=== PATIENT | female | born 1975 | race Caucasian/White ===

== ENCOUNTER 2016-07-14 11:40 | Emergency (ER) | payer MEDICARE, OTHER ==
--- NOTE | 2016-07-14 12:57 | ED ---
General Adult HPI - General Chief complaint: ENT Stated complaint: Left Ear Pain Time Seen by Provider: 07/14/16 12:51 Source: patient, RN notes reviewed Mode of arrival: ambulatory Limitations: no limitations - History of Present Illness Initial comments: Patient is a pleasant 40-year-old female presenting to the emergency department complaining of sinus congestion and left ear pain. Symptoms have been present for a few days. No trauma. Patient does get frequent ear infections. No sore throat. Mild cough. Patient does have some nasal drainage as well. No fever. No hearing loss. - Related Data Home Medications Medication Instructions Recorded Confirmed Citalopram Hydrobromide [CeleXA] 20 mg PO QAM 06/20/15 05/16/16 Albuterol Inhaler [Ventolin Hfa 2 puff INHALATION RT-Q4H 08/28/15 05/16/16 Inhaler] Cyclobenzaprine [Flexeril] 10 mg PO TID 02/20/16 05/16/16 rOPINIRole HCL [Requip] 1 mg PO HS 02/20/16 05/16/16 Celecoxib [CeleBREX] 200 mg PO DAILY 03/08/16 05/16/16 Divalproex ER [Depakote ER] 1,000 mg PO DAILY 03/08/16 05/16/16 Docusate [Colace] 100 mg PO DAILY 03/08/16 05/16/16 Loratadine [Loratadine] 10 mg PO DAILY 03/08/16 05/16/16 QUEtiapine [SEROquel] 200 mg PO DAILY 03/08/16 05/16/16 Topiramate [Topamax] 100 mg PO DAILY 03/08/16 05/16/16 traZODone HCL [Desyrel] 50 mg PO HS 03/08/16 05/16/16 Gabapentin 800 mg PO TID 05/16/16 05/16/16 Previous Rx's Medication Instructions Recorded guaiFENesin [Mucinex] 600 mg PO Q12HR #10 tablet.er 04/08/16 Ciprofloxacin HCl [Cipro] 500 mg PO Q12HR #14 tablet 05/16/16 Azithromycin [Zithromax Z-pack] 250 mg PO DIRECTED #6 tab 07/14/16 Allergies Allergy/AdvReac Type Severity Reaction Status Date / Time lithium [[place]] Allergy Unknown Verified 12/12/16 11:16 Childhood Penicillins Allergy Nausea Verified 05/16/16 11:16 Review of Systems ROS Statement: Those systems with pertinent positive or pertinent negative responses have been documented in the HPI. ROS Other: All systems not noted in ROS Statement are negative. Constitutional: Denies: fever Eyes: Denies: eye pain ENT: Reports: ear pain, congestion Respiratory: Denies: dyspnea Cardiovascular: Denies: chest pain Endocrine: Denies: fatigue Gastrointestinal: Denies: abdominal pain Genitourinary: Denies: dysuria Musculoskeletal: Denies: back pain Skin: Denies: rash Neurological: Denies: weakness Past Medical History Past Medical History: Asthma, GERD/Reflux, Musculoskeletal Disorder, Seizure Disorder Additional Past Medical History / Comment(s): Back Pain; CTS FL[place]. History of Any Multi-Drug Resistant Organisms: None Reported Past Surgical History: Cholecystectomy, Hysterectomy, Tubal Ligation Additional Past Surgical History / Comment(s): FLORESITA Feet 1990. Past Anesthesia/Blood Transfusion Reactions: Motion Sickness Past Psychological History: Anxiety, Bipolar, Depression, Panic Disorder, Schizoaffective Disorder, Schizophrenia Smoking Status: Former smoker Past Alcohol Use History: None Reported Additional Past Alcohol Use History / Comment(s): SMOKED 25 YEARS, 1PPD, JUST QUIT. Past Drug Use History: None Reported Additional Drug Use History / Comment(s): pt reports she has been taking too many vicodin and Soma today - Past Family History Mother Family Medical History: No Reported History General Exam Limitations: no limitations General appearance: alert, in no apparent distress Head exam: Present: atraumatic Eye exam: Present: normal appearance, PERRL ENT exam: Present: normal oropharynx, other (Tenderness over the frontal, ethmoid, and maxillary sinuses. Bilateral TMs within normal limits.) Neck exam: Present: normal inspection Respiratory exam: Present: normal lung sounds bilaterally Cardiovascular Exam: Present: regular rate, normal rhythm GI/Abdominal exam: Present: soft. Absent: tenderness Extremities exam: Present: normal inspection Neurological exam: Present: alert Psychiatric exam: Present: normal affect, normal mood Skin exam: Absent: rash Course Vital Signs 07/14/16 11:53 Temperature 97.1 F L Pulse Rate 107 H Respiratory 20 Rate Blood Pressure 132/88 O2 Sat by Pulse 96 Oximetry Disposition Clinical Impression: Sinusitis Disposition: HOME SELF-CARE Condition: Stable Instructions: Sinusitis (ED) Additional Instructions: Please follow-up with your primary care physician in the next couple days for recheck. Return for increased pain, hearing loss, difficulty breathing, worsening symptoms or other concerns. Prescriptions: Azithromycin [Zithromax Z-pack] 250 mg PO DIRECTED #6 tab Referrals: Miquel Marx MD [Primary Care Provider] - 1-2 days
[2016-07-14 13:25] VITALS: BP 134/78; PULSE 87; RESP 18; TEMP 97.5
== END 2016-07-14 13:25 | disposition home or self-care (01) ==
LOC: EC 11:40
DX: J32.9 Chronic sinusitis, unspecified (principal); H92.02 Otalgia, left ear; J45.909 Unspecified asthma, uncomplicated; G40.909 Epilepsy, unspecified, not intractable, without status epilepticus; F25.0 Schizoaffective disorder, bipolar type; F41.9 Anxiety disorder, unspecified; F41.0 Panic disorder [episodic paroxysmal anxiety]; Z87.891 Personal history of nicotine dependence; Z79.899 Other long term (current) drug therapy; Z88.0 Allergy status to penicillin; Z88.8 Allergy status to other drugs, medicaments and biological substances
CPT/HCPCS: 99282

== ENCOUNTER 2016-07-29 09:44 | Emergency (ER) | payer MEDICARE, OTHER ==
[2016-07-29 09:54] VITALS: TEMP 97.8
--- NOTE | 2016-07-29 11:22 | ED ---
Psych HPI - General Chief Complaint: Psychiatric Symptoms Stated Complaint: mental health Time Seen by Provider: 07/29/16 09:58 Source: patient, RN notes reviewed Mode of arrival: ambulatory Limitations: no limitations - History of Present Illness Initial Comments: 40-year-old female presents emergency Department with chief complaint of suicidal thoughts. Patient states her depression suicidal. Patient states that she wants to stab herself. Patient states that she has multiple psychiatric problems. She states is compounded right now because she is homeless. She states that she had to take her guardian who was her cousin to court because he was feeling her money and buying drugs. Patient denies any drug use or alcohol use. - Related Data Home Medications Medication Instructions Recorded Confirmed Citalopram Hydrobromide [CeleXA] 20 mg PO QAM 06/20/15 07/29/16 Albuterol Inhaler [Ventolin Hfa 2 puff INHALATION RT-Q4H PRN 08/28/15 07/29/16 Inhaler] Cyclobenzaprine [Flexeril] 10 mg PO TID 02/20/16 07/29/16 rOPINIRole HCL [Requip] 1 mg PO HS 02/20/16 07/29/16 Celecoxib [CeleBREX] 200 mg PO DAILY 03/08/16 07/29/16 Divalproex ER [Depakote ER] 1,000 mg PO DAILY 03/08/16 07/29/16 Docusate [Colace] 100 mg PO DAILY 03/08/16 07/29/16 QUEtiapine [SEROquel] 200 mg PO DAILY 03/08/16 07/29/16 Topiramate [Topamax] 100 mg PO DAILY 03/08/16 07/29/16 Gabapentin 800 mg PO TID 05/16/16 07/29/16 traZODone HCL [Desyrel] 200 mg PO HS 07/29/16 07/29/16 Allergies Allergy/AdvReac Type Severity Reaction Status Date / Time lithium [[place]] Allergy Unknown Verified 07/29/16 12:14 Childhood Penicillins Allergy Nausea Verified 07/29/16 12:14 Review of Systems ROS Statement: Those systems with pertinent positive or pertinent negative responses have been documented in the HPI. ROS Other: All systems not noted in ROS Statement are negative. Past Medical History Past Medical History: Asthma, GERD/Reflux, Musculoskeletal Disorder, Seizure Disorder Additional Past Medical History / Comment(s): Back Pain; CTS FLORESITA. History of Any Multi-Drug Resistant Organisms: None Reported Past Surgical History: Cholecystectomy, Hysterectomy, Tubal Ligation Additional Past Surgical History / Comment(s): FLORESITA Feet 1991. Past Anesthesia/Blood Transfusion Reactions: Motion Sickness Past Psychological History: Anxiety, Bipolar, Depression, Panic Disorder, Schizoaffective Disorder, Schizophrenia Smoking Status: Former smoker Past Alcohol Use History: None Reported Additional Past Alcohol Use History / Comment(s): SMOKED 25 YEARS, 1PPD, JUST QUIT. Past Drug Use History: None Reported Additional Drug Use History / Comment(s): pt reports she has been taking too many vicodin and Soma today - Past Family History Mother Family Medical History: No Reported History General Exam Limitations: no limitations General appearance: alert, in no apparent distress Head exam: Present: atraumatic, normocephalic, normal inspection Eye exam: Present: normal appearance, PERRL, EOMI. Absent: scleral icterus, conjunctival injection, periorbital swelling ENT exam: Present: normal exam, normal oropharynx, mucous membranes moist, TM's normal bilaterally Neck exam: Present: normal inspection, full ROM. Absent: tenderness, meningismus, lymphadenopathy Respiratory exam: Present: normal lung sounds bilaterally. Absent: respiratory distress, wheezes, rales, rhonchi, stridor Cardiovascular Exam: Present: regular rate, normal rhythm, normal heart sounds. Absent: systolic murmur, diastolic murmur, rubs, gallop, clicks Psychiatric exam: Present: flat affect Skin exam: Present: warm, dry, intact, normal color. Absent: rash Course Vital Signs 07/29/16 09:52 Temperature 97.8 F Pulse Rate 89 Respiratory 20 Rate Blood Pressure 133/78 O2 Sat by Pulse 99 Oximetry Medical Decision Making - Medical Decision Making 40-year-old female presented for psychiatric evaluation. Patient was evaluated by [facility]. They feel that her depression has coincides with her homelessness. Patient will be sent to a senior living patient will be discharged to [facility] worker. - Lab Data Lab Results 07/29/16 Range/Units 13:02 Urine Opiates Screen Not Detected (NotDetected) Ur Oxycodone Screen Not Detected (NotDetected) Urine Methadone Screen Not Detected (NotDetected) Ur Propoxyphene Screen Not Detected (NotDetected) Ur Barbiturates Screen Not Detected (NotDetected) U Tricyclic Antidepress Not Detected (NotDetected) Ur Phencyclidine Scrn Not Detected (NotDetected) Ur Amphetamines Screen Not Detected (NotDetected) U Methamphetamines Scrn Not Detected (NotDetected) U Benzodiazepines Scrn Not Detected (NotDetected) Urine Cocaine Screen Not Detected (NotDetected) U Marijuana (THC) Screen Not Detected (NotDetected) Disposition Clinical Impression: Depression, Homeless Disposition: HOME SELF-CARE Condition: Stable Instructions: Depression (ED) Additional Instructions: Please return to the Emergency Department if symptoms worsen or any other concerns. Time of Disposition: 13:42
[2016-07-29] MEDS ORDERED: ACETAMINOPHEN TAB 325 MG TAB PO STA (13:06)
[2016-07-29 13:59] VITALS: BP 138/77; PULSE 78; RESP 18
== END 2016-07-29 13:50 | disposition home or self-care (01) ==
LOC: EC 09:44 → EEVIPCON 09:44 → EC 13:50
DX: F32.9 Major depressive disorder, single episode, unspecified (principal); Z59.0 Homelessness; F25.9 Schizoaffective disorder, unspecified; F41.9 Anxiety disorder, unspecified; F41.0 Panic disorder [episodic paroxysmal anxiety]; G40.909 Epilepsy, unspecified, not intractable, without status epilepticus; Z88.0 Allergy status to penicillin; Z88.8 Allergy status to other drugs, medicaments and biological substances; Z79.899 Other long term (current) drug therapy
CPT/HCPCS: 80306; 82075; 99285

== ENCOUNTER 2016-10-08 19:38 | Emergency (ER) | payer MEDICARE, OTHER ==
[2016-10-08] MEDS ORDERED: SODIUM CHLORIDE 0.9% 1,000 ML IV ONE (20:01)
[2016-10-08] MEDS ORDERED: ASPIRIN 325 MG TAB PO STA (20:01)
[2016-10-08 20:35] LABS: Basophils % (A) 0 %; CH 33.3; CHCM 36.2; Eosinophils # (A) 0.2 k/uL (0-0.7); Eosinophils % (A) 3 %; HCT 38.4 % (34.0-46.0); HDW 3.11; HGB 13.8 gm/dL (11.4-16.0); Luc # (Auto) 0.15; Luc % (Auto) 2; Lymphocytes # (A) 2.5 k/uL (1.0-4.8); Lymphocytes % (A) 36 %; MCH 33.2 pg (25.0-35.0); MCHC 35.9 g/dL (31.0-37.0); MCV 92.4 fL (80.0-100.0); Mean Platelet Volume 7.3; Monocytes # (A) 0.4 k/uL (0-1.0); Monocytes % (A) 6 %; Neutrophils # (A) 3.7 k/uL (1.3-7.7); Neutrophils % (A) 53 %; RBC 4.16 m/uL (3.80-5.40); RDW 14.1 % (11.5-15.5); WBC 6.9 k/uL (3.8-10.6); WBC (Perox) 7.21
--- NOTE | 2016-10-08 20:47 | XR ---
EXAMINATION TYPE: XR chest 2V DATE OF EXAM: 10/08/2016 8:40 PM COMPARISON: 04/08/2016 INDICATION: Chest pain TECHNIQUE: Single frontal view of the chest is obtained. FINDINGS: The heart size is normal. The pulmonary vasculature is normal. The lungs are clear. IMPRESSION: 1. No acute pulmonary process.
[2016-10-08 20:49] LABS: Anion Gap 8 mmol/L; Blood Urea Nitrogen 16 mg/dL (7-17); Calcium 9.7 mg/dL (8.4-10.2); Carbon Dioxide 26 mmol/L (22-30); Chloride 105 mmol/L (98-107); Glucose 229 mg/dL (74-99); Non-African American GFR(MDRD) >60 (>60 ml/min/1.73 sqM); Potassium 4.2 mmol/L (3.5-5.1); Sodium 139 mmol/L (137-145)
--- NOTE | 2016-10-08 23:58 | ED ---
General Adult HPI - General Chief complaint: Chest Pain Stated complaint: Chest Pain Source: patient Mode of arrival: ambulatory Limitations: no limitations - History of Present Illness Initial comments: 41-year-old female presented for evaluation of chest pain. She states it started at 7 PM tonight describes as sharp, substernal, radiating to the back, and without exacerbating or alleviating factors. She states that she is a smoker and has diabetes but has no other risk factors for cardiac disease. There is no associated nausea, vomiting, diaphoresis, abdominal pain, shortness of breath. - Related Data Home Medications Medication Instructions Recorded Confirmed Citalopram Hydrobromide [CeleXA] 20 mg PO QAM 06/20/15 10/08/16 Albuterol Inhaler [Ventolin Hfa 2 puff INHALATION RT-Q4H PRN 08/28/15 10/08/16 Inhaler] Cyclobenzaprine [Flexeril] 10 mg PO TID 02/20/16 10/08/16 rOPINIRole HCL [Requip] 1 mg PO HS 02/20/16 10/08/16 Celecoxib [CeleBREX] 200 mg PO DAILY 03/08/16 10/08/16 Divalproex ER [Depakote ER] 1,000 mg PO DAILY 03/08/16 10/08/16 Docusate [Colace] 100 mg PO DAILY 03/08/16 10/08/16 QUEtiapine [SEROquel] 200 mg PO DAILY 03/08/16 10/08/16 Topiramate [Topamax] 100 mg PO DAILY 03/08/16 10/08/16 Gabapentin 800 mg PO TID 05/16/16 10/08/16 traZODone HCL [Desyrel] 200 mg PO HS 07/29/16 10/08/16 Allergies Allergy/AdvReac Type Severity Reaction Status Date / Time lithium [[place]] Allergy Unknown Verified 10/08/16 19:45 Childhood Penicillins Allergy Nausea Verified 10/08/16 19:45 Review of Systems ROS Statement: Those systems with pertinent positive or pertinent negative responses have been documented in the HPI. ROS Other: All systems not noted in ROS Statement are negative. Constitutional: Denies: fever, chills Eyes: Denies: eye pain, eye discharge, vision change ENT: Denies: ear pain, throat pain Respiratory: Denies: cough, dyspnea, wheezes, hemoptysis, stridor Cardiovascular: Reports: chest pain. Denies: palpitations, dyspnea on exertion , orthopnea, edema, syncope, paroxysmal nocturnal dyspnea Endocrine: Denies: fatigue, polydipsia, polyuria Gastrointestinal: Denies: abdominal pain, nausea, vomiting, diarrhea, constipation Genitourinary: Denies: urgency, dysuria Musculoskeletal: Denies: back pain, arthralgia, myalgia Skin: Denies: rash, lesions Neurological: Denies: headache, weakness Psychiatric: Denies: anxiety, depression Hematological/Lymphatic: Denies: easy bleeding, easy bruising Past Medical History Past Medical History: Asthma, GERD/Reflux, Musculoskeletal Disorder, Seizure Disorder Additional Past Medical History / Comment(s): Back Pain; CTS FLORESITA. History of Any Multi-Drug Resistant Organisms: None Reported Past Surgical History: Cholecystectomy, Hysterectomy, Tubal Ligation Additional Past Surgical History / Comment(s): FLORESITA Feet 1990. Past Anesthesia/Blood Transfusion Reactions: Motion Sickness Past Psychological History: Anxiety, Bipolar, Depression, Panic Disorder, Schizoaffective Disorder, Schizophrenia Smoking Status: Former smoker Past Alcohol Use History: None Reported Additional Past Alcohol Use History / Comment(s): SMOKED 25 YEARS, 1PPD, JUST QUIT. Past Drug Use History: None Reported Additional Drug Use History / Comment(s): pt reports she has been taking too many vicodin and Soma today - Past Family History Mother Family Medical History: No Reported History General Exam Limitations: no limitations General appearance: alert, in no apparent distress Head exam: Present: atraumatic, normocephalic, normal inspection Eye exam: Present: normal appearance, PERRL, EOMI. Absent: scleral icterus, conjunctival injection, periorbital swelling ENT exam: Present: normal exam, mucous membranes moist Neck exam: Present: normal inspection. Absent: tenderness, meningismus, lymphadenopathy Respiratory exam: Present: normal lung sounds bilaterally. Absent: respiratory distress, wheezes, rales, rhonchi, stridor Cardiovascular Exam: Present: regular rate, normal rhythm, normal heart sounds. Absent: systolic murmur, diastolic murmur, rubs, gallop, clicks GI/Abdominal exam: Present: soft, normal bowel sounds. Absent: distended, tenderness, guarding, rebound, rigid Rectal exam: Present: deferred Extremities exam: Present: normal inspection, full ROM, normal capillary refill. Absent: tenderness, pedal edema, joint swelling, calf tenderness Back exam: Present: normal inspection Neurological exam: Present: alert, oriented X3, CN II-XII intact Psychiatric exam: Present: normal affect, normal mood Skin exam: Present: warm, dry, intact, normal color. Absent: rash Course Vital Signs 10/08/16 10/08/16 10/09/16 19:44 22:27 00:04 Temperature 97.9 F 98.2 F Pulse Rate 80 90 82 Respiratory 78 H 20 18 Rate Blood Pressure 126/76 125/79 113/71 O2 Sat by Pulse 98 100 95 Oximetry EKG Findings - EKG Comments: EKG Findings:: Normal sinus rhythm with a ventricular rate of 90, NILE 196, QRS 104, QT/QTC 374/457. Medical Decision Making - Medical Decision Making 41-year-old female presenting for evaluation of sudden onset substernal chest pain that she describes as sharp with radiation into her back. On physical examination the pain is reproducible to palpation. The remainder of her physical exam is benign including a soft non-peritoneal abdomen without guarding, rigidity, or rebound. Lungs are clear to auscultation bilaterally and cardiac exam is benign. EKG, chest x-ray, labs were all obtained and revealed no significant abnormalities. Patient was also provided with IV fluid and aspirin. On reevaluation the patient's stated that her symptoms had completely resolved and that she would like to be discharged. She was informed that he would be best to stay for a stress test and she hasn't had one in the last 3-4 years. The patient acknowledged an understanding of the desire to stay but stated that she would rather be discharged to follow up as an outpatient. She was advised to follow-up with her primary care physician and animal rescuer but to return to this facility if her symptoms should worsen or persist. She acknowledged an understanding of this information and agreed with this plan of care. - Lab Data Result diagrams: 10/08/16 20:19 10/08/16 20:19 Lab Results 10/08/16 10/08/16 10/08/16 Range/Units 20:19 20:19 20:19 WBC 6.9 (3.8-10.6) k/uL RBC 4.16 (3.80-5.40) m/uL Hgb 13.8 (11.4-16.0) gm/dL Hct 38.4 (34.0-46.0) % MCV 92.4 (80.0-100.0) fL MCH 33.2 (25.0-35.0) pg MCHC 35.9 (31.0-37.0) g/dL RDW 14.1 (11.5-15.5) % Plt Count 203 (150-450) k/uL Neutrophils % 53 % Lymphocytes % 36 % Monocytes % 6 % Eosinophils % 3 % Basophils % 0 % Neutrophils # 3.7 (1.3-7.7) k/uL Lymphocytes # 2.5 (1.0-4.8) k/uL Monocytes # 0.4 (0-1.0) k/uL Eosinophils # 0.2 (0-0.7) k/uL Basophils # 0.0 (0-0.2) k/uL Sodium 139 (137-145) mmol/L Potassium 4.2 (3.5-5.1) mmol/L Chloride 105 (98-107) mmol/L Carbon Dioxide 26 (22-30) mmol/L Anion Gap 8 mmol/L BUN 16 (7-17) mg/dL Creatinine 0.70 (0.52-1.04) mg/dL Est GFR (MDRD) Af Amer >60 (>60 ml/min/1.73 sqM) Est GFR (MDRD) Non-Af >60 (>60 ml/min/1.73 sqM) Glucose 229 H (74-99) mg/dL Calcium 9.7 (8.4-10.2) mg/dL Troponin I (0.000-0.034) ng/mL NT-Pro-B Natriuret Pep 94 pg/mL 10/08/16 10/08/16 Range/Units 20:19 23:10 WBC (3.8-10.6) k/uL RBC (3.80-5.40) m/uL Hgb (11.4-16.0) gm/dL Hct (34.0-46.0) % MCV (80.0-100.0) fL MCH (25.0-35.0) pg MCHC (31.0-37.0) g/dL RDW (11.5-15.5) % Plt Count (150-450) k/uL Neutrophils % % Lymphocytes % % Monocytes % % Eosinophils % % Basophils % % Neutrophils # (1.3-7.7) k/uL Lymphocytes # (1.0-4.8) k/uL Monocytes # (0-1.0) k/uL Eosinophils # (0-0.7) k/uL Basophils # (0-0.2) k/uL Sodium (137-145) mmol/L Potassium (3.5-5.1) mmol/L Chloride (98-107) mmol/L Carbon Dioxide (22-30) mmol/L Anion Gap mmol/L BUN (7-17) mg/dL Creatinine (0.52-1.04) mg/dL Est GFR (MDRD) Af Amer (>60 ml/min/1.73 sqM) Est GFR (MDRD) Non-Af (>60 ml/min/1.73 sqM) Glucose (74-99) mg/dL Calcium (8.4-10.2) mg/dL Troponin I <0.012 <0.012 (0.000-0.034) ng/mL NT-Pro-B Natriuret Pep pg/mL Disposition Clinical Impression: Chest pain Disposition: HOME SELF-CARE Condition: Stable Instructions: Chest Pain (ED), Costochondritis (ED) Referrals: Nonstaff,Physician [Primary Care Provider] - 1-2 days Uche Wells MD [STAFF PHYSICIAN] - 1-2 days Time of Disposition: 23:57
[2016-10-09 00:07] VITALS: BP 113/71; PULSE 82; RESP 18; TEMP 98.2
== END 2016-10-09 00:09 | disposition home or self-care (01) ==
LOC: EC 19:38
DX: R07.2 Precordial pain (principal); G40.909 Epilepsy, unspecified, not intractable, without status epilepticus; F41.0 Panic disorder [episodic paroxysmal anxiety]; F31.9 Bipolar disorder, unspecified; F25.9 Schizoaffective disorder, unspecified; Z87.891 Personal history of nicotine dependence; Z79.899 Other long term (current) drug therapy; Z88.0 Allergy status to penicillin; Z88.8 Allergy status to other drugs, medicaments and biological substances
CPT/HCPCS: 36415; 71020; 80048; 83880; 84484; 85025; 93005; 96360; 96361; 99285

== ENCOUNTER 2016-12-16 15:20 | Emergency (ER) | payer MEDICARE, OTHER ==
[2016-12-16 15:34] VITALS: BP 111/56; PULSE 81; RESP 17; TEMP 97.2
--- NOTE | 2016-12-16 16:04 | ED ---
Skin/Abscess/FB HPI - General Chief complaint: Skin/Abscess/Foreign Body Stated complaint: rash all over Time Seen by Provider: 12/16/16 16:01 Source: patient, RN notes reviewed Mode of arrival: ambulatory Limitations: no limitations - History of Present Illness Initial comments: 41-year-old female presents emergency Department with chief complaint of rash to her right leg. Patient states started a few days ago. States it's only in her right posterior thigh region. States it slightly painful and itchy. Patient denies any injury denies any new soaps or lotions or detergents. The rash appears to be a burning which she denies getting burned or significant anything. - Related Data Home Medications Medication Instructions Recorded Confirmed Citalopram Hydrobromide [CeleXA] 20 mg PO QAM 06/20/15 10/08/16 Albuterol Inhaler [Ventolin Hfa 2 puff INHALATION RT-Q4H PRN 08/28/15 10/08/16 Inhaler] Cyclobenzaprine [Flexeril] 10 mg PO TID 02/20/16 10/08/16 rOPINIRole HCL [Requip] 1 mg PO HS 02/20/16 10/08/16 Celecoxib [CeleBREX] 200 mg PO DAILY 03/08/16 10/08/16 Divalproex ER [Depakote ER] 1,000 mg PO DAILY 03/08/16 10/08/16 Docusate [Colace] 100 mg PO DAILY 03/08/16 10/08/16 QUEtiapine [SEROquel] 200 mg PO DAILY 03/08/16 10/08/16 Topiramate [Topamax] 100 mg PO DAILY 03/08/16 10/08/16 Gabapentin 800 mg PO TID 05/16/16 10/08/16 traZODone HCL [Desyrel] 200 mg PO HS 07/29/16 10/08/16 Allergies Allergy/AdvReac Type Severity Reaction Status Date / Time lithium [[place]] Allergy Unknown Verified 12/16/16 15:31 Childhood Penicillins Allergy Nausea Verified 12/16/16 15:31 Review of Systems ROS Statement: Those systems with pertinent positive or pertinent negative responses have been documented in the HPI. ROS Other: All systems not noted in ROS Statement are negative. Past Medical History Past Medical History: Asthma, GERD/Reflux, Musculoskeletal Disorder, Seizure Disorder Additional Past Medical History / Comment(s): Back Pain; CTS FLORESITA. History of Any Multi-Drug Resistant Organisms: None Reported Past Surgical History: Cholecystectomy, Hysterectomy, Tubal Ligation Additional Past Surgical History / Comment(s): FLORESITA Feet 1991. Past Anesthesia/Blood Transfusion Reactions: Motion Sickness Past Psychological History: Anxiety, Bipolar, Depression, Panic Disorder, Schizoaffective Disorder, Schizophrenia Smoking Status: Former smoker Past Alcohol Use History: None Reported Past Drug Use History: None Reported - Past Family History Mother Family Medical History: No Reported History General Exam Limitations: no limitations General appearance: alert, in no apparent distress Neck exam: Present: normal inspection. Absent: tenderness, meningismus, lymphadenopathy Respiratory exam: Present: normal lung sounds bilaterally. Absent: respiratory distress, wheezes, rales, rhonchi, stridor Cardiovascular Exam: Present: regular rate, normal rhythm, normal heart sounds. Absent: systolic murmur, diastolic murmur, rubs, gallop, clicks Skin exam: Present: warm, dry, rash (Right posterior thigh there is erythematous rash proximal 4 cm x 2 cm with central white region appears to be a burn) Course Vital Signs 12/16/16 15:31 Temperature 97.2 F L Pulse Rate 81 Respiratory 17 Rate Blood Pressure 111/56 O2 Sat by Pulse 98 Oximetry Medical Decision Making - Medical Decision Making 41-year-old presented for rash. Patient has erythematous rash which appears to be a burn though she denies any injury. There is no evidence of bacterial infection or candidiasis Infection at This Time. Patient Will Follow-Up with Primary Care Physician for Recheck Return Parameters Were Discussed. Disposition Clinical Impression: Erythematous rash Disposition: HOME SELF-CARE Condition: Stable Instructions: Acute Rash (ED) Additional Instructions: Please return to the Emergency Department if symptoms worsen or any other concerns. Referrals: Miquel Marx MD [Primary Care Provider] - 1-2 days
== END 2016-12-16 16:11 | disposition home or self-care (01) ==
LOC: EC 15:20
DX: L53.9 Erythematous condition, unspecified (principal); M79.651 Pain in right thigh; G40.909 Epilepsy, unspecified, not intractable, without status epilepticus; M62.9 Disorder of muscle, unspecified; F31.9 Bipolar disorder, unspecified; Z87.891 Personal history of nicotine dependence; Z79.1 Long term (current) use of non-steroidal anti-inflammatories (NSAID); Z79.899 Other long term (current) drug therapy; Z88.0 Allergy status to penicillin; Z88.8 Allergy status to other drugs, medicaments and biological substances
CPT/HCPCS: 99282

== ENCOUNTER 2017-01-11 14:39 | Emergency (ER) | payer MEDICARE, OTHER ==
--- NOTE | 2017-01-11 15:45 | ED ---
Psych HPI - General Chief Complaint: Psychiatric Symptoms Stated Complaint: Mental Health Time Seen by Provider: 01/11/17 14:39 Source: patient, EMS, RN notes reviewed Mode of arrival: EMS - History of Present Illness Initial Comments: This is a 41-year-old female history depression was brought in by EMS for evaluation for depression. She states she's been present for last several days she states she is depressed because she can't see her boyfriend who moved out of the home she was in back to his own home. She states she is not suicidal she has a drug or alcohol ingestion no other complaints at this time. MD Complaint: feels depressed - Related Data Home Medications Medication Instructions Recorded Confirmed Citalopram Hydrobromide [CeleXA] 20 mg PO QAM 06/20/15 01/11/17 Albuterol Inhaler [Ventolin Hfa 2 puff INHALATION RT-Q4H PRN 08/28/15 01/11/17 Inhaler] rOPINIRole HCL [Requip] 1 mg PO BID 02/20/16 01/11/17 Divalproex ER [Depakote ER] 1,000 mg PO HS 03/08/16 01/11/17 Docusate [Colace] 100 mg PO HS 03/08/16 01/11/17 Topiramate [Topamax] 100 mg PO DAILY 03/08/16 01/11/17 traZODone HCL [Desyrel] 200 mg PO HS 07/29/16 01/11/17 Acetaminophen with Codeine 1 tab PO TID PRN 01/11/17 01/11/17 [Tylenol w/codeine #3] Cetirizine HCl [Zyrtec] 10 mg PO DAILY 01/11/17 01/11/17 Ergocalciferol [Vitamin D2] 50,000 unit PO Q7D 01/11/17 01/11/17 Gabapentin 600 mg PO QID 01/11/17 01/11/17 Meloxicam [Mobic] 7.5 mg PO BID 01/11/17 01/11/17 Paliperidone IM [Invega Sustenna] 234 mg IM Q30D 01/11/17 01/11/17 Sertraline HCl [Zoloft] 50 mg PO DAILY 01/11/17 01/11/17 metFORMIN HCL [Glucophage] 500 mg PO BID 01/11/17 01/11/17 Allergies Allergy/AdvReac Type Severity Reaction Status Date / Time lithium [[place]] Allergy Unknown Verified 12/16/16 15:31 Childhood Penicillins Allergy Nausea Verified 12/16/16 15:31 Review of Systems ROS Statement: Those systems with pertinent positive or pertinent negative responses have been documented in the HPI. ROS Other: All systems not noted in ROS Statement are negative. Past Medical History Past Medical History: Asthma, GERD/Reflux, Musculoskeletal Disorder, Seizure Disorder Additional Past Medical History / Comment(s): Back Pain; CTS [place]. History of Any Multi-Drug Resistant Organisms: None Reported Past Surgical History: Cholecystectomy, Hysterectomy, Tubal Ligation Additional Past Surgical History / Comment(s): FLORESITA Feet 1990. Past Anesthesia/Blood Transfusion Reactions: Motion Sickness Past Psychological History: Anxiety, Bipolar, Depression, Panic Disorder, Schizoaffective Disorder, Schizophrenia Smoking Status: Former smoker Past Alcohol Use History: None Reported Past Drug Use History: None Reported - Past Family History Mother Family Medical History: No Reported History General Exam - General Exam Comments Initial Comments: This is a well-developed well-nourished awake alert oriented 3 female Limitations: no limitations General appearance: alert, in no apparent distress Head exam: Present: atraumatic, normocephalic, normal inspection Eye exam: Present: normal appearance, PERRL, EOMI. Absent: scleral icterus, conjunctival injection, periorbital swelling ENT exam: Present: normal exam, mucous membranes moist Neck exam: Present: normal inspection. Absent: tenderness, meningismus, lymphadenopathy Respiratory exam: Present: normal lung sounds bilaterally. Absent: respiratory distress, wheezes, rales, rhonchi, stridor Cardiovascular Exam: Present: regular rate, normal rhythm, normal heart sounds. Absent: systolic murmur, diastolic murmur, rubs, gallop, clicks GI/Abdominal exam: Present: soft, normal bowel sounds. Absent: distended, tenderness, guarding, rebound, rigid Extremities exam: Present: normal inspection, full ROM, normal capillary refill. Absent: tenderness, pedal edema, joint swelling, calf tenderness Back exam: Present: normal inspection Neurological exam: Present: alert, oriented X3, CN II-XII intact Psychiatric exam: Present: depressed, flat affect Skin exam: Present: warm, dry, intact, normal color. Absent: rash Course Vital Signs 01/11/17 01/11/17 14:52 16:56 Temperature 98.2 F Pulse Rate 63 Respiratory 16 18 Rate Blood Pressure 135/76 O2 Sat by Pulse 95 Oximetry - Reevaluation(s) Reevaluation #1: 01/11/17 16:14 The patient was evaluated by the psychiatric service and did relate to the psychiatric nurse that she took an overdose of Tylenol last evening at some time number of pills she states she takes his changed on different questioning. Levels will be obtained. Medical Decision Making - Medical Decision Making The patient was evaluated by psychiatric service labs are within normal limits patient will be discharged [facility]. Patient is not suicidal or homicidal at this time. She will be followed up outpatient. - Lab Data Result diagrams: 01/11/17 16:36 Lab Results 01/11/17 Range/Units 16:36 Sodium 141 (137-145) mmol/L Potassium 4.0 (3.5-5.1) mmol/L Chloride 107 (98-107) mmol/L Carbon Dioxide 27 (22-30) mmol/L Anion Gap 7 mmol/L BUN 12 (7-17) mg/dL Creatinine 0.68 (0.52-1.04) mg/dL Est GFR (MDRD) Af Amer >60 (>60 ml/min/1.73 sqM) Est GFR (MDRD) Non-Af >60 (>60 ml/min/1.73 sqM) Glucose 97 (74-99) mg/dL Calcium 9.4 (8.4-10.2) mg/dL Total Bilirubin 0.4 (0.2-1.3) mg/dL AST 19 (14-36) U/L ALT 37 (9-52) U/L Alkaline Phosphatase 54 (38-126) U/L Total Protein 6.8 (6.3-8.2) g/dL Albumin 4.0 (3.5-5.0) g/dL Salicylates 3.0 mg/dL Acetaminophen <10.0 ug/mL Disposition Clinical Impression: Depression, Adjustment reaction Disposition: HOME SELF-CARE Condition: Good Instructions: Depression (ED), Anxiety (ED) Referrals: Miquel Marx MD [Primary Care Provider] - 1-2 days
[2017-01-11 17:03] LABS: ALT 37 U/L (9-52); AST 19 U/L (14-36); Acetaminophen <10.0 ug/mL; Alkaline Phosphatase 54 U/L (38-126); Anion Gap 7 mmol/L; Blood Urea Nitrogen 12 mg/dL (7-17); Calcium 9.4 mg/dL (8.4-10.2); Carbon Dioxide 27 mmol/L (22-30); Chloride 107 mmol/L (98-107); Glucose 97 mg/dL (74-99); Non-African American GFR(MDRD) >60 (>60 ml/min/1.73 sqM); Sodium 141 mmol/L (137-145); Total Bilirubin 0.4 mg/dL (0.2-1.3); Total Protein 6.8 g/dL (6.3-8.2)
[2017-01-11 17:16] VITALS: RESP 18
[2017-01-11 17:36] VITALS: BP 133/79; PULSE 78; TEMP 98.4
== END 2017-01-11 18:55 | disposition home or self-care (01) ==
LOC: EC 14:39
DX: F32.9 Major depressive disorder, single episode, unspecified (principal); F43.20 Adjustment disorder, unspecified; J45.909 Unspecified asthma, uncomplicated; K21.9 Gastro-esophageal reflux disease without esophagitis; G40.909 Epilepsy, unspecified, not intractable, without status epilepticus; F31.9 Bipolar disorder, unspecified; F41.9 Anxiety disorder, unspecified; F41.0 Panic disorder [episodic paroxysmal anxiety]; F25.9 Schizoaffective disorder, unspecified; Z87.891 Personal history of nicotine dependence; Z79.1 Long term (current) use of non-steroidal anti-inflammatories (NSAID); Z79.84 Long term (current) use of oral hypoglycemic drugs; Z79.899 Other long term (current) drug therapy; Z88.0 Allergy status to penicillin; Z88.8 Allergy status to other drugs, medicaments and biological substances
CPT/HCPCS: 36415; 80053; 82075; 83520; 99284

== ENCOUNTER 2017-01-30 02:30 | Emergency (ER) | payer MEDICARE, OTHER ==
[2017-01-30 02:37] VITALS: BP 116/66; PULSE 89; RESP 18; TEMP 97.4
--- NOTE | 2017-01-30 02:44 | ED ---
Extremity Problem HPI - General Chief complaint: Extremity Problem,Nontraumatic Stated complaint: shaking Time Seen by Provider: 01/30/17 02:38 Source: patient, RN notes reviewed Mode of arrival: ambulatory Limitations: no limitations - History of Present Illness Initial comments: 41-year-old female presents emergency Department chief complaint of shaking. Patient states she's been having shaking episodes at nighttime he is having present for over the last 3-4 months and has seen her primary care physician for this, she told there is nothing to be done. Patient states it does get worse with her anxiety. Patient denies any headache, dizziness, blurred vision , focal weakness, chest pain, shortness breath, nausea vomiting. Patient denies any change in her medications. She does not take any Zyprexa or risperidone. Patient states that she usually notices the symptoms when she tries to go to sleep at nighttime. Patient states she does not see a current neurologist that she has a seizure disorder. - Related Data Home Medications Medication Instructions Recorded Confirmed Citalopram Hydrobromide [CeleXA] 20 mg PO QAM 06/20/15 01/30/17 Albuterol Inhaler [Ventolin Hfa 2 puff INHALATION RT-Q4H PRN 08/28/15 01/30/17 Inhaler] rOPINIRole HCL [Requip] 1 mg PO BID 02/20/16 01/30/17 Divalproex ER [Depakote ER] 1,000 mg PO HS 03/08/16 01/30/17 Docusate [Colace] 100 mg PO HS 03/08/16 01/30/17 Topiramate [Topamax] 100 mg PO DAILY 03/08/16 01/30/17 traZODone HCL [Desyrel] 200 mg PO HS 07/29/16 01/30/17 Acetaminophen with Codeine 1 tab PO TID PRN 01/11/17 01/30/17 [Tylenol w/codeine #3] Cetirizine HCl [Zyrtec] 10 mg PO DAILY 01/11/17 01/30/17 Ergocalciferol [Vitamin D2] 50,000 unit PO Q7D 01/11/17 01/30/17 Gabapentin 600 mg PO QID 01/11/17 01/30/17 Meloxicam [Mobic] 7.5 mg PO BID 01/11/17 01/30/17 Paliperidone IM [Invega Sustenna] 234 mg IM Q30D 01/11/17 01/30/17 Sertraline HCl [Zoloft] 50 mg PO DAILY 01/11/17 01/30/17 metFORMIN HCL [Glucophage] 500 mg PO BID 01/11/17 01/30/17 Allergies Allergy/AdvReac Type Severity Reaction Status Date / Time lithium [[place]] Allergy Unknown Verified 12/16/16 15:31 Childhood Penicillins Allergy Nausea Verified 12/16/16 15:31 Review of Systems ROS Statement: Those systems with pertinent positive or pertinent negative responses have been documented in the HPI. ROS Other: All systems not noted in ROS Statement are negative. Past Medical History Past Medical History: Asthma, GERD/Reflux, Musculoskeletal Disorder, Seizure Disorder Additional Past Medical History / Comment(s): Back Pain; CTS [place]ORES[place]. History of Any Multi-Drug Resistant Organisms: None Reported Past Surgical History: Cholecystectomy, Hysterectomy, Tubal Ligation Additional Past Surgical History / Comment(s): FLORESITA Feet 1990. Past Anesthesia/Blood Transfusion Reactions: Motion Sickness Past Psychological History: Anxiety, Bipolar, Depression, Panic Disorder, Schizoaffective Disorder, Schizophrenia Smoking Status: Former smoker Past Alcohol Use History: None Reported Past Drug Use History: None Reported - Past Family History Mother Family Medical History: No Reported History General Exam Limitations: no limitations General appearance: alert, in no apparent distress Head exam: Present: atraumatic, normocephalic, normal inspection ENT exam: Present: normal exam, mucous membranes moist Neck exam: Present: normal inspection. Absent: tenderness, meningismus, lymphadenopathy Respiratory exam: Present: normal lung sounds bilaterally. Absent: respiratory distress, wheezes, rales, rhonchi, stridor Cardiovascular Exam: Present: regular rate, normal rhythm, normal heart sounds. Absent: systolic murmur, diastolic murmur, rubs, gallop, clicks Extremities exam: Present: other (Patient has full range of motion full- strength of all extremities there is no tremor at rest) Neurological exam: Present: alert, oriented X3, CN II-XII intact, reflexes normal. Absent: motor sensory deficit Psychiatric exam: Present: normal affect, normal mood Course Vital Signs 01/30/17 02:33 Temperature 97.4 F L Pulse Rate 89 Respiratory 18 Rate Blood Pressure 116/66 O2 Sat by Pulse 98 Oximetry Medical Decision Making - Medical Decision Making 41-year-old female presented for shaking. Patient is having tremors they're very few and far between. Patient may be having tremors related to anxiety or medication induced. Patient will follow-up with neurologist return parameters were discussed. Disposition Clinical Impression: Occasional tremors Disposition: HOME SELF-CARE Condition: Stable Instructions: Tremors (ED) Additional Instructions: Please return to the Emergency Department if symptoms worsen or any other concerns. Referrals: Miquel Marx MD [Primary Care Provider] - 1-2 days Irene Souza MD [STAFF PHYSICIAN] - 1-2 days Time of Disposition: 02:44
== END 2017-01-30 02:50 | disposition home or self-care (01) ==
LOC: EC 02:30
DX: R25.1 Tremor, unspecified (principal); K21.9 Gastro-esophageal reflux disease without esophagitis; G40.909 Epilepsy, unspecified, not intractable, without status epilepticus; F31.9 Bipolar disorder, unspecified; F25.9 Schizoaffective disorder, unspecified; F41.0 Panic disorder [episodic paroxysmal anxiety]; Z88.0 Allergy status to penicillin; Z88.8 Allergy status to other drugs, medicaments and biological substances; Z79.84 Long term (current) use of oral hypoglycemic drugs; Z79.899 Other long term (current) drug therapy; Z87.891 Personal history of nicotine dependence
CPT/HCPCS: 99283

== ENCOUNTER 2017-02-01 20:04 | Inpatient (IN) | payer MEDICARE, MEDICAID ==
--- NOTE | 2017-02-01 20:13 | ED ---
General Adult HPI - General Source: patient, police, RN notes reviewed, old records reviewed Mode of arrival: ambulatory Limitations: no limitations <Samuel Burton - Last Filed: 02/01/17 20:12> <Samuel Jones - Last Filed: 02/01/17 23:37> - General Chief complaint: Psychiatric Symptoms Stated complaint: Mental Health Time Seen by Provider: 02/01/17 20:12 - History of Present Illness Initial comments: This is a 41-year-old female [place] evaluation of suicidal thoughts. Patient is petitioned by PD and she is complaining to be suicidal from [facility]. Patient this time denies being suicidal or alcohol (Samuel Burton) - Related Data Home Medications Medication Instructions Recorded Confirmed rOPINIRole HCL [Requip] 1 mg PO BID@0800,209902/20/16 02/01/17 Divalproex ER [Depakote ER] 1,000 mg PO HS@209903/08/16 02/01/17 Docusate [Colace] 100 mg PO HS 03/08/16 02/01/17 Topiramate [Topamax] 100 mg PO DAILY@0800 03/08/16 02/01/17 traZODone HCL [Desyrel] 200 mg PO HS@209907/29/16 02/01/17 Cetirizine HCl [Zyrtec] 10 mg PO DAILY@0800 01/11/17 02/01/17 Ergocalciferol [Vitamin D2] 50,000 unit PO MO@0800 01/11/17 02/01/17 Gabapentin 600 mg PO QID 01/11/17 02/01/17 Meloxicam [Mobic] 7.5 mg PO BID@0800,209901/11/17 02/01/17 Sertraline HCl [Zoloft] 50 mg PO DAILY@00 01/11/17 02/01/17 metFORMIN HCL [Glucophage] 500 mg PO BID@0800,1700 01/11/17 02/01/17 Acetaminophen with Codeine 1 tab PO Q4-6H PRN 02/01/17 02/01/17 [Tylenol w/codeine #4] Albuterol Inhaler [Ventolin Hfa 2 puff INHALATION RT-BID PRN 02/01/17 02/01/17 Inhaler] Citalopram Hydrobromide [CeleXA] 20 mg PO DAILY@0800 02/01/17 02/01/17 Clarithromycin [Biaxin] 500 mg PO BID@0800,2100 02/01/17 02/01/17 Allergies Allergy/AdvReac Type Severity Reaction Status Date / Time lithium [[place]] Allergy Unknown Verified 02/01/17 20:09 Childhood Penicillins Allergy Nausea Verified 02/01/17 20:09 Review of Systems ROS Other: All systems not noted in ROS Statement are negative. <Samuel Burton - Last Filed: 02/01/17 20:12> ROS Other: All systems not noted in ROS Statement are negative. <Samuel Jones - Last Filed: 02/01/17 23:37> ROS Statement: Those systems with pertinent positive or pertinent negative responses have been documented in the HPI. Past Medical History Past Medical History: Asthma, GERD/Reflux, Musculoskeletal Disorder, Seizure Disorder Additional Past Medical History / Comment(s): Back Pain; CTS [place]ES[place]. History of Any Multi-Drug Resistant Organisms: None Reported Past Surgical History: Cholecystectomy, Hysterectomy, Tubal Ligation Additional Past Surgical History / Comment(s): FLORESITA Feet 1990. Past Anesthesia/Blood Transfusion Reactions: Motion Sickness Past Psychological History: Anxiety, Bipolar, Depression, Panic Disorder, Schizoaffective Disorder, Schizophrenia Smoking Status: Former smoker Past Alcohol Use History: None Reported Past Drug Use History: None Reported - Past Family History Mother Family Medical History: No Reported History <Samuel Burton - Last Filed: 02/01/17 20:12> General Exam Limitations: no limitations General appearance: alert, in no apparent distress Head exam: Present: atraumatic, normocephalic, normal inspection Eye exam: Present: normal appearance, PERRL, EOMI. Absent: scleral icterus, conjunctival injection, periorbital swelling ENT exam: Present: normal exam, mucous membranes moist Neck exam: Present: normal inspection. Absent: tenderness, meningismus, lymphadenopathy Respiratory exam: Present: normal lung sounds bilaterally. Absent: respiratory distress, wheezes, rales, rhonchi, stridor Cardiovascular Exam: Present: regular rate, normal rhythm, normal heart sounds. Absent: systolic murmur, diastolic murmur, rubs, gallop, clicks GI/Abdominal exam: Present: soft, normal bowel sounds. Absent: distended, tenderness, guarding, rebound, rigid Extremities exam: Present: normal inspection, full ROM, normal capillary refill. Absent: tenderness, pedal edema, joint swelling, calf tenderness Back exam: Present: normal inspection Neurological exam: Present: alert, oriented X3, CN II-XII intact Psychiatric exam: Present: normal affect, normal mood Skin exam: Present: warm, dry, intact, normal color. Absent: rash <Samuel Burton - Last Filed: 02/01/17 20:12> Course <Samuel Burton - Last Filed: 02/01/17 20:12> <Samuel Jones - Last Filed: 02/01/17 23:37> Vital Signs 02/01/17 20:06 Temperature 98.2 F Pulse Rate 89 Respiratory 20 Rate Blood Pressure 121/67 O2 Sat by Pulse 99 Oximetry - Reevaluation(s) Reevaluation #1: 02/01/17 20:13 Patient's medically clear for psychiatric evaluation (Samuel Burton) Disposition <Samuel Burton - Last Filed: 02/01/17 20:12> Time of Disposition: 23:37 <Samuel Jones - Last Filed: 02/01/17 23:37> Clinical Impression: Suicidal ideation Disposition: ADMITTED IP TO THIS [facility] Referrals: Miquel Marx MD [Primary Care Provider] - 1-2 days
[2017-02-01 22:29] LABS: Acetaminophen <10.0 ug/mL; Salicylate <1.0 mg/dL
[2017-02-01 23:41] LABS: Glucose,Whole Blood 194 mg/dL (75-99)
[2017-02-01] MEDS ORDERED: MAG HYDROX/AL HYDROX/SIMETH 30 ML CUP PO PRN (23:59)
[2017-02-01] MEDS ORDERED: MAGNESIUM HYDROXIDE 2,400 MG/10 ML CUP PO PRN (23:59)
[2017-02-01] MEDS ORDERED: LORazepam 1 MG TAB PO PRN (23:59)
[2017-02-02] MEDS ORDERED: LORazepam 2 MG/ML SYRINGE IM PRN (00:07)
[2017-02-02 02:50] VITALS: RESP 16
[2017-02-02] MEDS ORDERED: CITALOPRAM HYDROBROMIDE 20 MG TAB PO SCH (08:00)
[2017-02-02] MEDS ORDERED: LORATADINE 10 MG TAB PO SCH (08:00)
[2017-02-02 09:26] LABS: Basophils % (A) 0 %; CH 32.4; CHCM 34.4; Eosinophils # (A) 0.2 k/uL (0-0.7); Eosinophils % (A) 3 %; HCT 42.2 % (34.0-46.0); HDW 3.13; HGB 14.5 gm/dL (11.4-16.0); Luc # (Auto) 0.23; Luc % (Auto) 3; Lymphocytes # (A) 3.3 k/uL (1.0-4.8); Lymphocytes % (A) 43 %; MCH 32.4 pg (25.0-35.0); MCHC 34.2 g/dL (31.0-37.0); MCV 94.7 fL (80.0-100.0); Monocytes # (A) 0.5 k/uL (0-1.0); Monocytes % (A) 6 %; Neutrophils # (A) 3.5 k/uL (1.3-7.7); Neutrophils % (A) 45 %; RBC 4.46 m/uL (3.80-5.40); WBC 7.7 k/uL (3.8-10.6); WBC (Perox) 7.95
[2017-02-02] MEDS: ALBUTEROL INHALER 60 PUFF/8 GM INHALER INHALATION PRN ×2 (09:26→21:02)
[2017-02-02] MEDS: GABAPENTIN 300 MG CAP PO SCH ×4 (09:33→21:36)
[2017-02-02] MEDS: metFORMIN 500 MG TAB PO SCH ×2 (09:34→17:52)
[2017-02-02] MEDS: MELOXICAM 7.5 MG TAB PO SCH ×2 (09:34→21:36)
[2017-02-02] MEDS: TOPIRAMATE 100 MG TAB PO SCH (09:34)
[2017-02-02 09:38] LABS: ALT 47 U/L (9-52); AST 22 U/L (14-36); Alkaline Phosphatase 54 U/L (38-126); Anion Gap 9 mmol/L; Blood Urea Nitrogen 23 mg/dL (7-17); Calcium 9.7 mg/dL (8.4-10.2); Carbon Dioxide 26 mmol/L (22-30); Chloride 108 mmol/L (98-107); Glucose 126 mg/dL (74-99); Non-African American GFR(MDRD) >60 (>60 ml/min/1.73 sqM); Potassium 4.5 mmol/L (3.5-5.1); Sodium 143 mmol/L (137-145); Total Bilirubin 0.3 mg/dL (0.2-1.3); Total Protein 7.1 g/dL (6.3-8.2)
[2017-02-02 11:59] LABS: Hemoglobin A1C 5.9 % (4.2-6.1)
--- NOTE | 2017-02-02 12:58 | P.CONS ---
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 Patient well-known to physician appears to be baseline at this time Review of Systems Musculoskeletal: Reports low back pain Psychiatric: Reports sleep disturbances Past Medical History Past Medical History: Asthma, GERD/Reflux, Musculoskeletal Disorder, Seizure Disorder Additional Past Medical History / Comment(s): Back Pain; CTS [place]. History of Any Multi-Drug Resistant Organisms: None Reported Past Surgical History: Cholecystectomy, Hysterectomy, Tubal Ligation Additional Past Surgical History / Comment(s): FLORESITA Feet 1990. Past Anesthesia/Blood Transfusion Reactions: Motion Sickness Past Psychological History: Anxiety, Bipolar, Depression, Panic Disorder, Schizoaffective Disorder, Schizophrenia Smoking Status: Former smoker Past Alcohol Use History: None Reported Past Drug Use History: None Reported - Past Family History Mother Family Medical History: No Reported History Medications and Allergies Home Medications Medication Instructions Recorded Confirmed Type rOPINIRole HCL [Requip] 1 mg PO BID@799,209902/20/16 02/01/17 History Divalproex ER [Depakote ER] 1,000 mg PO HS@209903/08/16 02/01/17 History Docusate [Colace] 100 mg PO HS 03/08/16 02/01/17 History Topiramate [Topamax] 100 mg PO DAILY@79903/08/16 02/01/17 History traZODone HCL [Desyrel] 200 mg PO HS@209907/29/16 02/01/17 History Cetirizine HCl [Zyrtec] 10 mg PO DAILY@79901/11/17 02/01/17 History Ergocalciferol [Vitamin D2] 50,000 unit PO MO@79901/11/17 02/01/17 History Gabapentin 600 mg PO QID 01/11/17 02/01/17 History Meloxicam [Mobic] 7.5 mg PO BID@0800,209901/11/17 02/01/17 History Sertraline HCl [Zoloft] 50 mg PO DAILY@79901/11/17 02/01/17 History metFORMIN HCL [Glucophage] 500 mg PO BID@00,1700 01/11/17 02/01/17 History Acetaminophen with Codeine 1 tab PO Q4-6H PRN 02/01/17 02/01/17 History [Tylenol w/codeine #4] Albuterol Inhaler [Ventolin Hfa 2 puff INHALATION RT-BID PRN 02/01/17 02/01/17 History Inhaler] Citalopram Hydrobromide [CeleXA] 20 mg PO DAILY@0800 02/01/17 02/01/17 History Clarithromycin [Biaxin] 500 mg PO BID@0800,2100 02/01/17 02/01/17 History Allergies Allergy/AdvReac Type Severity Reaction Status Date / Time lithium [[place]] Allergy Unknown Verified 02/01/17 20:09 Childhood Penicillins Allergy Nausea Verified 02/01/17 20:09 Physical Exam Vitals: Vital Signs Temp Pulse Pulse Resp BP BP Pulse Ox 02/02/17 06:42 97.6 F 55 L 16 130/76 02/02/17 02:36 97.4 F L 69 16 122/73 96 02/02/17 00:00 98.6 F 60 18 117/60 98 02/01/17 20:06 98.2 F 89 20 121/67 99 Intake and Output 02/01/17 02/02/17 02/02/17 22:59 06:59 14:59 Other: Weight 94.801 kg 91.5 kg - Constitutional General appearance: obese - EENT Eyes: PERRLA Ears: bilateral: normal - Neck Neck: normal ROM - Respiratory Respiratory: bilateral: CTA - Cardiovascular Rhythm: regular - Gastrointestinal General gastrointestinal: soft - Integumentary Integumentary: normal - Neurologic Neurologic: CNII-XII intact - Musculoskeletal Musculoskeletal: gait normal - Psychiatric Baseline Psychiatric: A&O x's 3 Results CBC & Chem 7: 02/02/17 08:32 02/02/17 08:32 Labs: Abnormal Lab Results - Last 24 Hours (Table) 02/01/17 02/01/17 02/02/17 Range/Units 20:23 23:38 08:32 Chloride 108 H (98-107) mmol/L BUN 23 H (7-17) mg/dL Glucose 126 H (74-99) mg/dL POC Glucose (mg/dL) 194 H (75-99) mg/dL U Benzodiazepines Scrn Detected H (NotDetected) Assessment and Plan Plan: Assessment Schizo effective disorder history of bipolar Suicidal ideation Asthma stable GERD Seizure disorder Anxiety disorder Chronic back pain Diabetes type 2 Plan Patient medically stable at this time
[2017-02-02] MEDS: FLUoxetine HCL 20 MG CAP PO SCH (16:16)
[2017-02-02 17:45] LABS: Glucose,Whole Blood 120 mg/dL (75-99)
[2017-02-02] MEDS ORDERED: DIVALPROEX ER 500 MG TAB.ER.24H PO SCH (21:00)
[2017-02-02] MEDS ORDERED: DOCUSATE 100 MG CAP PO SCH (21:00)
[2017-02-02] MEDS ORDERED: traZODone HCL 100 MG TAB PO SCH (21:00)
[2017-02-03 07:12] VITALS: BP 116/73; PULSE 62; TEMP 97.8
[2017-02-03] MEDS: ALBUTEROL INHALER 60 PUFF/8 GM INHALER INHALATION PRN (09:14)
[2017-02-03] MEDS: MELOXICAM 7.5 MG TAB PO SCH (09:20)
[2017-02-03] MEDS: TOPIRAMATE 100 MG TAB PO SCH (09:20)
[2017-02-03] MEDS: metFORMIN 500 MG TAB PO SCH (09:20)
[2017-02-03] MEDS: GABAPENTIN 300 MG CAP PO SCH ×2 (09:20→13:41)
[2017-02-03] MEDS: FLUoxetine HCL 20 MG CAP PO SCH (09:21)
--- NOTE | 2017-02-03 12:10 | HP ---
HISTORY AND PHYSICAL DATE OF SERVICE: 02/02/2017. IDENTIFYING DATA: The patient is a 41-year-old female. She resides at [facility] and was referred from [facility] to the emergency room for further evaluation. CHIEF COMPLAINT: The patient was stating she was depressed and that she had suicide thoughts. She then made statements that she was not suicidal, she was distressed about her living circumstances. She had self-abusive behavior. She apparently drank a bottle of NyQuil, though she claimed it was not to try to kill herself. HISTORY OF PRESENTING ILLNESS: The patient has had apparent long-term psychiatric issues. We made an effort to get the records from [facility], though very limited records were provided. She apparently had been receiving services, though stopped sometime this year and has not been following up with appointments. The only record mental health center provided was a progress note June 15, 2015 which had minimal information. The note indicated that the patient was not taking medications consistently at that time. She was denying any significant mental health symptoms. There was no indication of substance use disorder. She had been on a combination of Celexa, Depakote ER, Invega Sustenna , Seroquel and Artane. The indications for a fairly complicated set of psychotropic medications were not clear. Patient herself provides very limited history regarding her situation and current circumstances. Her main focus is on the idea that she does not like being in [facility]. She seems to suggest that she has personality conflicts with some of the staff. She does not really clarify any issues. She apparently has had some behavior of cutting. It is unclear what her daily routine is or what community activities she is involved in. She currently is on a combination of: 1. Zoloft 50 mg a day. 2. Depakote ER 1000 mg a day. 3. Celexa 20 mg a day. 4. Topamax 100 mg a day a day. 5. Neurontin 600 mg 4 times a day and. 6. Trazodone 200 mg at bedtime. At the time of the interview, the patient was denying suicide thoughts. She is admitted for further evaluation. SUBSTANCE USE HISTORY: None reported. PAST MEDICAL HISTORY, REVIEW OF SYSTEMS AND PHYSICAL EXAM: As per medical consultation, Ms Acosta VILLAGOMEZ. MENTAL STATUS EXAM: Patient was dressed in a hospital gown. She gave fair eye contact. Psychomotor activity was slow. Speech was monotone and soft. She answered questions with brief responses. She did not say a lot. She was not spontaneous or interactive. Her affect was blunted, her mood reserved. She seems somewhat distressed. There was no indication of thought disorder. On cognitive exam, she was oriented and alert. She did make an effort to answer formal cognitive questions. Memory appeared to be generally intact. Insight limited. Judgment poor. Fund of knowledge and intellectual level below average. ASSESSMENT: This 41-year-old female is diagnosed with mood disorder. She apparently has had long- term psychiatric issues, though no details are available. Support system appears limited. Strengths include that the patient seems to have been able to maintain reasonable stability in her living situation, even if she is somewhat uncomfortable with some of her relationships there. Weakness includes lack of insight and understanding related to her mental health issues. DIAGNOSIS: 1. Mood disorder. 2. Rule out major depression. 3. Asthma. 4. Gastroesophageal reflux disease. 5. Seizure disorder. 6. Chronic back pain. 7. Diabetes. RECOMMENDATIONS: Patient will be admitted for comprehensive medical, psychiatric and psychosocial evaluation. We will engage the patient in individual and group therapeutic activities. I will switch the patient from Zoloft to Prozac. The change is based on the patient's preference, feeling that the Zoloft she has been on has not been effective, even though she has been on it for a long period of time. Also, it is quite unclear why the patient would be on 2 antidepressant medications and in particular, 2 SSRIs, both on low doses. I would look to titrate up on the Prozac if appropriate. I will continue Desyrel 100 mg at bedtime. Her other psychotropic medications are questionable in terms of their indication. She is on Depakote ER 1000 mg a day. At this point , I will continue it. She reportedly takes her medications consistently, though her valproic acid level on admission was 17. The indication for Topamax also is unclear. Presumably, it relates to her psychiatric issues. Whether not she has a clear seizure disorder remains to be seen. I would make that assumption based on her having a low Depakote level, which would not be in the therapeutic range. Not likely she gets antiseizure benefits from Topamax at 100 mg a day. The patient likely will be benefitted by trying to simplify her medications and maximize benefits from primary psychotropic medications. I will discontinue Celexa, Zoloft. I will reduce Desyrel to 100 mg at bedtime. We will focus on stabilization and discharge planning. LEÓN / JUANN: [id number] / MTDD
--- NOTE | 2017-02-04 17:20 | DS ---
DISCHARGE SUMMARY ADMISSION AND DISCHARGE DIAGNOSES:: 1. Mood disorder. 2. Rule out major depression. 3. Rule out intellectual disability. 4. Asthma. 5. Gastroesophageal reflux disease. 6. Seizure disorder. 7. Chronic back pain. 8. Diabetes. HISTORY OF PRESENT ILLNESS: The patient is a 41-year-old female. She is a resident of [facility] and was referred from [facility] to the emergency room for evaluation. She was stating that she was depressed and had suicide thoughts. She had made a statement that she had overdosed on some kind of pills. She then made statements that she was not suicidal though acknowledged drinking a bottle of NyQuil. She has self-abusive behavior. The only source of information was the referral information provided to the nurse and what the patient reported. The patient indicated that she has had long-term problems with depression. She had been followed previously by [facility]. There was a progress note June 15, 2015 with minimal information. Apparently that was the last time she was seen there. She had been on a combination of Celexa, Depakote ER, Invega Sustenna, Seroquel and Artane thought she apparently had stopped those medications. She suggested that her current situation of distress was relating to not being comfortable with being at [facility]. She said that she had personality conflicts though she did not provide much detail. She reports that she has been sleeping fairly well. She was vague about her daily activities. She does say she is willing to get reconnected to [facility]. At one point, she said that she did not want to return to [facility] though at another point, said she was willing to return there at least for an interim. On admission she was on Depakote ER 1000 mg a day, Topamax 100 mg a day and Neurontin 600 mg 4 times a day as her only psychoactive medications. It is not clear if those were prescribed for psychotropic benefits. She was admitted for further evaluation. Past medical history, review of systems and physical exam as per DAHLIA Driscoll. MENTAL STATUS EXAM: The patient gave fair eye contact. She was somewhat restless though overall psychomotor activity was slowed. She had monotone soft speech. She answered questions with brief responses. Her affect was blunted, mood reserved. She was somewhat distressed. There was no indication of thought disorder. Basic orientation was intact. She did make an effort to answer formal cognitive questions. DIAGNOSTIC STUDIES: Included a CBC and comprehensive metabolic profile that was unremarkable except for an elevated glucose of 194. TSH was 4.0. COURSE OF HOSPITALIZATION: The patient was admitted for comprehensive medical psychiatric and psychosocial evaluation. We made efforts to engage the patient in individual and group therapeutic activities. We discussed medication options and the patient was comfortable with starting Prozac 20 mg a day. She was continued on Topamax 100 mg a day and Desyrel 100 mg at bedtime. The patient did not show much significant problems with mood, anxiety or thoughts throughout most of her hospitalization. She slept fairly well at night. She had a call manner. She was cooperative. She would socialize with others. She was not too inclined to attend the groups though was comfortable talking 1 to 1 with others. She was in agreement with a return to [facility] and felt that she could manage fairly well there. CONDITION ON DISCHARGE: Patient was stable. Her mood was improved. She was voicing no thoughts of harm to self or others. She tolerated her medications well. RECOMMENDATIONS AND FOLLOW UP: The patient is discharged back to [facility]. DISCHARGE MEDICATIONS: Prozac 20 mg a day, Topamax 100 mg a day, Trazodone 100 mg a day, Requip 1 mg twice a day, Depakote ER 1000 mg at bedtime, Colace 100 mg a day, Metformin 500 mg twice a day, vitamin D 50,000 units daily, Mobic 7.5 mg twice a day, Zyrtec 10 mg daily, gabapentin 600 mg 4 times a day, Albuterol inhaler p.r.n., acetaminophen with codeine p.r.n., Biaxin 500 mg twice a day. The medications that she had previously been on that were discontinued included Celexa 20 mg a day, Zoloft 50 mg a day and trazodone 200 mg a day. She has a followup appointment with [facility] in 1 week and was referred back to Dr. Marx for primary care. MMODL / IJN: [id number] /
== END 2017-02-03 16:42 | disposition home or self-care (01) | DRG 885 ==
LOC: EC 20:04 → 3MHU 23:53
PROVIDERS: ADMIT Psychiatry & Neurology Psychiatry; ATTEND Psychiatry & Neurology Psychiatry
DX: F39 Unspecified mood [affective] disorder (principal); E11.9 Type 2 diabetes mellitus without complications; R45.851 Suicidal ideations; G40.909 Epilepsy, unspecified, not intractable, without status epilepticus; T39.1X1A Poisoning by 4-Aminophenol derivatives, accidental (unintentional), initial encounter; T48.3X1A Poisoning by antitussives, accidental (unintentional), initial encounter; T45.0X1A Poisoning by antiallergic and antiemetic drugs, accidental (unintentional), initial encounter; F41.0 Panic disorder [episodic paroxysmal anxiety]; G89.29 Other chronic pain; J45.909 Unspecified asthma, uncomplicated; K21.9 Gastro-esophageal reflux disease without esophagitis; M54.9 Dorsalgia, unspecified; Z87.891 Personal history of nicotine dependence; Z79.1 Long term (current) use of non-steroidal anti-inflammatories (NSAID); Z79.84 Long term (current) use of oral hypoglycemic drugs; Z79.899 Other long term (current) drug therapy; Z88.0 Allergy status to penicillin; Z88.8 Allergy status to other drugs, medicaments and biological substances; Y92.009 Unspecified place in unspecified non-institutional (private) residence as the place of occurrence of the external cause
CPT/HCPCS: 36415; 80053; 80164; 80306; 82075; 83036; 83520; 84443; 85025; 94640; 99285

== ENCOUNTER → 2017-08-04 | Outpatient (CLI) | payer MEDICARE, MEDICAID ==
--- NOTE | 2017-08-04 13:22 | XR ---
EXAMINATION TYPE: XR lumbar spine 2 or 3V DATE OF EXAM: 08/04/2017 CLINICAL HISTORY: Chronic low back pain. TECHNIQUE: Frontal and lateral images of the lumbar spine are obtained. COMPARISON: Lumbar spine x-ray June 11, 2015. FINDINGS: There are 5 lumbar type vertebral bodies redemonstrated. The lumbar spine shows satisfact ory alignment without evidence of acute fracture or dislocation. Vertebral body heights and disk spac e heights are within normal limits. Mild multilevel anterior spurring is seen. There is facet arthrop athy lower lumbar levels. Tubal ligation clips in the pelvis are partially imaged. IMPRESSION: Mild multilevel spurring. No significant change from prior.
== END | disposition home or self-care (01) ==
LOC: RADXRMAIN 12:49
PROVIDERS: ATTEND Family Medicine
DX: M25.78 Osteophyte, vertebrae (principal)
CPT/HCPCS: 72100

== ENCOUNTER 2017-09-22 14:14 | Inpatient (IN) | payer MEDICARE, MEDICAID ==
--- NOTE | 2017-09-22 14:45 | ED ---
General Adult HPI - General Chief complaint: Psychiatric Symptoms Stated complaint: Mental Health Time Seen by Provider: 09/22/17 14:20 Source: patient, EMS Mode of arrival: EMS Limitations: no limitations - History of Present Illness Initial comments: Bebe is a 42-year-old female with a past medical history of depression and anxiety who presents to the emergency department today for evaluation of suicidal thoughts patient reports that she's been having intermittent suicidal thoughts for a period of time, she has an appointment to follow up with [facility] on the of this month, however today she became overwhelmed with thoughts of running to harm or self. She states that she took her roommates omeprazole in an attempt to kill herself. Her roommate then contacted [facility] to advised to call 911 to bring her to the emergency department. Patient denies any co-ingestion or other attempts at self harm. - Related Data Home Medications Medication Instructions Recorded Confirmed Divalproex ER [Depakote ER] 1,000 mg PO HS@2100 03/08/16 09/22/17 Docusate [Colace] 100 mg PO HS 03/08/16 09/22/17 Ergocalciferol [Vitamin D2 50,000 unit PO MO@0800 01/11/17 09/22/17 (DRISDOL)] Meloxicam [Mobic] 7.5 mg PO BID@0800,2100 01/11/17 09/22/17 metFORMIN HCL [Glucophage] 500 mg PO BID@0800,1700 01/11/17 09/22/17 Acetaminophen-Codeine 300-30mg 1 tab PO Q8H PRN 09/22/17 09/22/17 [Tylenol #3] DULoxetine HCL [Cymbalta] 30 mg PO BID 09/22/17 09/22/17 Paliperidone [Invega] 6 mg PO DAILY 09/22/17 09/22/17 Simvastatin [Zocor] 20 mg PO HS 09/22/17 09/22/17 Previous Rx's Medication Instructions Recorded traZODone HCL [Desyrel] 100 mg PO HS@2100 #30 tab 02/03/17 Allergies Allergy/AdvReac Type Severity Reaction Status Date / Time quetiapine [From Seroquel] Allergy Rash/Hives Verified 09/22/17 14:31 sulfamethoxazole Allergy Rash/Hives Verified 09/22/17 14:31 [From Bactrim] trimethoprim [From Bactrim] Allergy Rash/Hives Verified 09/22/17 14:31 ibuprofen [From Motrin] AdvReac Nausea Verified 09/22/17 14:31 lithium [[place]] AdvReac Nausea Verified 09/22/17 14:31 Penicillins AdvReac Nausea Verified 09/22/17 14:31 zolpidem [From Ambien] AdvReac nightmares Verified 09/22/17 14:31 Review of Systems ROS Statement: Those systems with pertinent positive or pertinent negative responses have been documented in the HPI. ROS Other: All systems not noted in ROS Statement are negative. Constitutional: Denies: fever ENT: Denies: throat pain Respiratory: Denies: cough, dyspnea Cardiovascular: Denies: chest pain, palpitations Endocrine: Denies: fatigue Gastrointestinal: Denies: abdominal pain, nausea, vomiting Genitourinary: Denies: urgency, dysuria Musculoskeletal: Denies: back pain Skin: Denies: rash, lesions Neurological: Denies: headache, weakness Psychiatric: Reports: anxiety, depression, suicidal thoughts Past Medical History Past Medical History: Asthma, GERD/Reflux, Musculoskeletal Disorder, Seizure Disorder Additional Past Medical History / Comment(s): Back Pain; CTS FLORESITA. History of Any Multi-Drug Resistant Organisms: None Reported Past Surgical History: Cholecystectomy, Hysterectomy, Tubal Ligation Additional Past Surgical History / Comment(s): FLORESITA Feet 1990. Past Anesthesia/Blood Transfusion Reactions: Motion Sickness Past Psychological History: Anxiety, Bipolar, Depression, Panic Disorder, Schizoaffective Disorder, Schizophrenia Smoking Status: Former smoker - Past Family History Mother Family Medical History: No Reported History General Exam Limitations: no limitations General appearance: alert, in no apparent distress Head exam: Present: atraumatic, normocephalic Eye exam: Present: normal appearance, PERRL, EOMI ENT exam: Present: normal exam, normal oropharynx, mucous membranes moist, TM's normal bilaterally. Absent: mucous membranes dry Neck exam: Present: normal inspection Respiratory exam: Present: normal lung sounds bilaterally. Absent: respiratory distress Cardiovascular Exam: Present: normal rhythm, tachycardia GI/Abdominal exam: Present: soft, normal bowel sounds. Absent: distended, tenderness, guarding, rebound, rigid Rectal exam: Present: deferred Extremities exam: Present: normal inspection, full ROM, normal capillary refill. Absent: pedal edema, joint swelling, calf tenderness Back exam: Present: normal inspection Neurological exam: Present: alert, oriented X3 Psychiatric exam: Present: depressed, flat affect, suicidal ideation Skin exam: Present: warm, dry, intact, normal color Course Vital Signs 09/22/17 09/22/17 09/22/17 14:17 14:56 15:41 Temperature 99.1 F Pulse Rate 104 H Respiratory 20 20 20 Rate Blood Pressure 134/77 O2 Sat by Pulse 97 97 Oximetry 09/22/17 09/22/17 09/22/17 15:48 16:00 17:42 Temperature 98.7 F 99.2 F Pulse Rate 87 86 Respiratory 18 16 18 Rate Blood Pressure 112/54 132/71 O2 Sat by Pulse 95 95 Oximetry EKG Findings - EKG Comments: EKG Findings:: EKG at 14:46 - rate 91, rhythm is normal sinus, axis, normal NV 200, QRS is 112, QTC is prolonged at 489. There are no acute ST elevations or depressions. When compared to previous EKG QTC has increased from 454 to 489 Medical Decision Making - Medical Decision Making Patient was seen and evaluated, history was obtained from the patient History of anxiety, depression reports compliance with home meds including Cymbalta and Trazadone Physical exam unremarkable, patient reports taking a handful of omeprazole prior to arrival UA, UDS, Urine , EKG ordered Breath alcohol negative EKG with mild QTC prolongation Patient medically cleared for evaluation by psych Nursing staff discussed patient care with poison control who recommend salicylate, acetaminophen and depakote levels Labs drawn and ordered Patient evaluated by psych, patient refusing to sign in voluntarily. Cert completed. Patient accepted to psych service. - Lab Data Result diagrams: 09/22/17 15:50 09/22/17 15:50 Lab Results 09/22/17 09/22/17 09/22/17 Range/Units 14:53 14:53 15:50 WBC (3.8-10.6) k/uL RBC (3.80-5.40) m/uL Hgb (11.4-16.0) gm/dL Hct (34.0-46.0) % MCV (80.0-100.0) fL MCH (25.0-35.0) pg MCHC (31.0-37.0) g/dL RDW (11.5-15.5) % Plt Count (150-450) k/uL Neutrophils % % Lymphocytes % % Monocytes % % Eosinophils % % Basophils % % Neutrophils # (1.3-7.7) k/uL Lymphocytes # (1.0-4.8) k/uL Monocytes # (0-1.0) k/uL Eosinophils # (0-0.7) k/uL Basophils # (0-0.2) k/uL Sodium 141 (137-145) mmol/L Potassium 3.8 (3.5-5.1) mmol/L Chloride 107 (98-107) mmol/L Carbon Dioxide 20 L (22-30) mmol/L Anion Gap 14 mmol/L BUN 14 (7-17) mg/dL Creatinine 0.71 (0.52-1.04) mg/dL Est GFR (CKD-EPI)AfAm >90 (>60 ml/min/1.73 sqM) Est GFR (CKD-EPI)NonAf >90 (>60 ml/min/1.73 sqM) Glucose 136 H (74-99) mg/dL Calcium 9.6 (8.4-10.2) mg/dL Total Bilirubin 0.7 (0.2-1.3) mg/dL AST 29 (14-36) U/L ALT 46 (9-52) U/L Alkaline Phosphatase 75 (38-126) U/L Total Protein 6.8 (6.3-8.2) g/dL Albumin 4.2 (3.5-5.0) g/dL Urine Color Yellow Urine Appearance Cloudy H (Clear) Urine pH 6.0 (5.0-8.0) Ur Specific [place] 1.014 (1.001-1.035) Urine Protein Trace H (Negative) Urine Glucose (UA) Negative (Negative) Urine Ketones Trace H (Negative) Urine Blood Negative (Negative) Urine Nitrite Negative (Negative) Urine Bilirubin Negative (Negative) Urine Urobilinogen 4.0 (<2.0) mg/dL Ur Leukocyte Esterase Large H (Negative) Urine RBC 31 H (0-5) /hpf Urine WBC 46 H (0-5) /hpf Ur Squamous Epith Cells 12 H (0-4) /hpf Urine Mucus Many H (None) /hpf Urine HCG, Qual Not Detected (Not Detectd) Salicylates <1.0 mg/dL Urine Opiates Screen Not Detected (NotDetected) Ur Oxycodone Screen Not Detected (NotDetected) Urine Methadone Screen Not Detected (NotDetected) Ur Propoxyphene Screen Not Detected (NotDetected) Ur Barbiturates Screen Not Detected (NotDetected) Valproic Acid 70.4 ug/mL U Tricyclic Antidepress Not Detected (NotDetected) Ur Phencyclidine Scrn Not Detected (NotDetected) Ur Amphetamines Screen Not Detected (NotDetected) U Methamphetamines Scrn Not Detected (NotDetected) U Benzodiazepines Scrn Not Detected (NotDetected) Urine Cocaine Screen Not Detected (NotDetected) U Marijuana (THC) Screen Not Detected (NotDetected) Acetone, Qual Negative (Negative) 09/22/17 Range/Units 15:50 WBC 12.8 H (3.8-10.6) k/uL RBC 4.51 (3.80-5.40) m/uL Hgb 14.3 (11.4-16.0) gm/dL Hct 40.0 (34.0-46.0) % MCV 88.6 (80.0-100.0) fL MCH 31.8 (25.0-35.0) pg MCHC 35.9 (31.0-37.0) g/dL RDW 13.6 (11.5-15.5) % Plt Count 233 (150-450) k/uL Neutrophils % 72 % Lymphocytes % 20 % Monocytes % 6 % Eosinophils % 1 % Basophils % 0 % Neutrophils # 9.2 H (1.3-7.7) k/uL Lymphocytes # 2.6 (1.0-4.8) k/uL Monocytes # 0.7 (0-1.0) k/uL Eosinophils # 0.1 (0-0.7) k/uL Basophils # 0.0 (0-0.2) k/uL Sodium (137-145) mmol/L Potassium (3.5-5.1) mmol/L Chloride (98-107) mmol/L Carbon Dioxide (22-30) mmol/L Anion Gap mmol/L BUN (7-17) mg/dL Creatinine (0.52-1.04) mg/dL Est GFR (CKD-EPI)AfAm (>60 ml/min/1.73 sqM) Est GFR (CKD-EPI)NonAf (>60 ml/min/1.73 sqM) Glucose (74-99) mg/dL Calcium (8.4-10.2) mg/dL Total Bilirubin (0.2-1.3) mg/dL AST (14-36) U/L ALT (9-52) U/L Alkaline Phosphatase (38-126) U/L Total Protein (6.3-8.2) g/dL Albumin (3.5-5.0) g/dL Urine Color Urine Appearance (Clear) Urine pH (5.0-8.0) Ur Specific [place] (1.001-1.035) Urine Protein (Negative) Urine Glucose (UA) (Negative) Urine Ketones (Negative) Urine Blood (Negative) Urine Nitrite (Negative) Urine Bilirubin (Negative) Urine Urobilinogen (<2.0) mg/dL Ur Leukocyte Esterase (Negative) Urine RBC (0-5) /hpf Urine WBC (0-5) /hpf Ur Squamous Epith Cells (0-4) /hpf Urine Mucus (None) /hpf Urine HCG, Qual (Not Detectd) Salicylates mg/dL Urine Opiates Screen (NotDetected) Ur Oxycodone Screen (NotDetected) Urine Methadone Screen (NotDetected) Ur Propoxyphene Screen (NotDetected) Ur Barbiturates Screen (NotDetected) Valproic Acid ug/mL U Tricyclic Antidepress (NotDetected) Ur Phencyclidine Scrn (NotDetected) Ur Amphetamines Screen (NotDetected) U Methamphetamines Scrn (NotDetected) U Benzodiazepines Scrn (NotDetected) Urine Cocaine Screen (NotDetected) U Marijuana (THC) Screen (NotDetected) Acetone, Qual (Negative) Disposition Clinical Impression: Depression Disposition: TRANSFER TO PSYCH HOSP/UNIT Is patient prescribed a controlled substance at d/c from ED?: No Referrals: Mikaela Estrada MD [Primary Care Provider] - 1-2 days Time of Disposition: 18:05
[2017-09-22 15:16] LABS: Appearance,Urine Cloudy (Clear); Bilirubin,Urine Negative (Negative); Blood,Urine Negative (Negative); Color,Urine Yellow; Glucose,Urine (UA) Negative (Negative); Ketones,Urine Trace (Negative); Leukocyte Esterase,Urine Large (Negative); Mucus,Urine Many /hpf; Nitrite,Urine Negative (Negative); Protein,Urine Trace (Negative); RBC,Urine 31 /hpf (0-5); Specific Gravity,Urine 1.014 (1.001-1.035); Squamous Epithelial Cell,Urine 12 /hpf (0-4); WBC,Urine 46 /hpf (0-5)
[2017-09-22 15:27] LABS: Amphetamine Screen,Urine Not Detected (NotDetected); Barbiturate Screen,Urine Not Detected (NotDetected); Benzodiazepines Screen,Urine Not Detected (NotDetected); Cocaine Screen,Urine Not Detected (NotDetected); Methadone Screen, Urine Not Detected (NotDetected); Opiate Screen,Urine Not Detected (NotDetected); Oxycodone Screen, Urine Not Detected (NotDetected); Phencyclidine Screen,Urine Not Detected (NotDetected); Tricyclic Antidepressant,Urine Not Detected (NotDetected); Urn Cannabinoid Scrn Not Detected (NotDetected)
[2017-09-22 16:15] LABS: Basophils % (A) 0 %; Eosinophils # (A) 0.1 k/uL (0-0.7); Eosinophils % (A) 1 %; HGB 14.3 gm/dL (11.4-16.0); Lymphocytes # (A) 2.6 k/uL (1.0-4.8); Lymphocytes % (A) 20 %; MCH 31.8 pg (25.0-35.0); MCHC 35.9 g/dL (31.0-37.0); MCV 88.6 fL (80.0-100.0); Mean Platelet Volume 7.3; Monocytes # (A) 0.7 k/uL (0-1.0); Monocytes % (A) 6 %; Neutrophils # (A) 9.2 k/uL (1.3-7.7); Neutrophils % (A) 72 %; Platelet Count 233 k/uL (150-450); RBC 4.51 m/uL (3.80-5.40); RDW 13.6 % (11.5-15.5); WBC 12.8 k/uL (3.8-10.6)
[2017-09-22 16:19] LABS: ALT 46 U/L (9-52); AST 29 U/L (14-36); Albumin 4.2 g/dL (3.5-5.0); Alkaline Phosphatase 75 U/L (38-126); Anion Gap 14 mmol/L; Blood Urea Nitrogen 14 mg/dL (7-17); Calcium 9.6 mg/dL (8.4-10.2); Carbon Dioxide 20 mmol/L (22-30); Chloride 107 mmol/L (98-107); Glucose 136 mg/dL (74-99); Potassium 3.8 mmol/L (3.5-5.1); Salicylate <1.0 mg/dL; Sodium 141 mmol/L (137-145); Total Bilirubin 0.7 mg/dL (0.2-1.3); Total Protein 6.8 g/dL (6.3-8.2)
[2017-09-22 16:38] LABS: Valproic Acid (Depakene) 70.4 ug/mL
[2017-09-22] MEDS ORDERED: Acetaminophen-Codeine 300-30mg TAB PO STA (16:56)
[2017-09-22] MEDS ORDERED: MAG HYDROX/AL HYDROX/SIMETH 30 ML CUP PO PRN (17:40)
[2017-09-22] MEDS ORDERED: MAGNESIUM HYDROXIDE 2,400 MG/10 ML CUP PO PRN (17:40)
[2017-09-22] MEDS: LORazepam 1 MG TAB PO PRN (18:25)
[2017-09-22] MEDS: NICOTINE 21MG/24HR PATCH TRANSDERM SCH (18:26)
[2017-09-22] MEDS: flUPHENAZine 2.5 MG/ML (MDV) 10 ML VIAL IM PRN (20:12)
[2017-09-22] MEDS ORDERED: traZODone HCL 100 MG TAB PO SCH (21:00)
[2017-09-22] MEDS: DOCUSATE 100 MG CAP PO SCH (21:39)
[2017-09-22] MEDS: ATORVASTATIN 10 MG TAB PO SCH (21:39)
[2017-09-22] MEDS: MELOXICAM 7.5 MG TAB PO SCH (21:39)
[2017-09-22] MEDS: DIVALPROEX ER 500 MG TAB.ER.24H PO SCH (21:39)
[2017-09-22] MEDS: DULoxetine HCL 30 MG CAPSULE.DR PO SCH (21:39)
[2017-09-22 22:02] LABS: Glucose,Whole Blood 188 mg/dL (75-99)
[2017-09-23 01:37] LABS: Hemoglobin A1C 6.8 % (4.0-6.0)
[2017-09-23 06:22] LABS: Glucose,Whole Blood 123 mg/dL (75-99)
[2017-09-23] MEDS: metFORMIN 500 MG TAB PO SCH ×2 (07:58→17:39)
[2017-09-23] MEDS: MELOXICAM 7.5 MG TAB PO SCH ×2 (07:58→21:05)
[2017-09-23] MEDS: LORazepam 1 MG TAB PO PRN ×2 (07:59→19:42)
[2017-09-23] MEDS: DULoxetine HCL 30 MG CAPSULE.DR PO SCH ×2 (08:01→21:05)
[2017-09-23] MEDS: NICOTINE 21MG/24HR PATCH TRANSDERM SCH (08:02)
[2017-09-23] MEDS ORDERED: PALIPERIDONE 6 MG TAB.ER.24 PO SCH (09:00)
--- NOTE | 2017-09-23 12:14 | P.HP ---
Psychiatric H&P - . H&P Date: 09/23/17 History & Physical: Allergies Allergy/AdvReac Type Severity Reaction Status Date / Time quetiapine [From Seroquel] Allergy Rash/Hives Verified 09/22/17 18:05 sulfamethoxazole Allergy Rash/Hives Verified 09/22/17 18:05 [From Bactrim] trimethoprim [From Bactrim] Allergy Rash/Hives Verified 09/22/17 18:05 ibuprofen [From Motrin] AdvReac Nausea Verified 09/22/17 18:05 lithium [[place]] AdvReac Nausea Verified 09/22/17 18:05 Penicillins AdvReac Nausea Verified 09/22/17 18:05 zolpidem [From Ambien] AdvReac nightmares Verified 09/22/17 18:05 Vital Signs Temp 97.1 F L 09/22/17 18:09 Pulse 68 09/23/17 06:36 Resp 16 09/23/17 06:36 BP 110/61 09/23/17 06:36 Pulse Ox 95 09/22/17 17:42 Intake & Output 09/22/17 09/23/17 09/23/17 18:59 06:59 18:59 Weight 91.767 kg Laboratory Last Values WBC 12.8 k/uL (3.8-10.6) H 09/22/17 15:50 RBC 4.51 m/uL (3.80-5.40) 09/22/17 15:50 Hgb 14.3 gm/dL (11.4-16.0) 09/22/17 15:50 Hct 40.0 % (34.0-46.0) 09/22/17 15:50 MCV 88.6 fL (80.0-100.0) 09/22/17 15:50 MCH 31.8 pg (25.0-35.0) 09/22/17 15:50 MCHC 35.9 g/dL (31.0-37.0) 09/22/17 15:50 RDW 13.6 % (11.5-15.5) 09/22/17 15:50 Plt Count 233 k/uL (150-450) 09/22/17 15:50 Neutrophils % 72 % 09/22/17 15:50 Lymphocytes % 20 % 09/22/17 15:50 Monocytes % 6 % 09/22/17 15:50 Eosinophils % 1 % 09/22/17 15:50 Basophils % 0 % 09/22/17 15:50 Neutrophils # 9.2 k/uL (1.3-7.7) H 09/22/17 15:50 Lymphocytes # 2.6 k/uL (1.0-4.8) 09/22/17 15:50 Monocytes # 0.7 k/uL (0-1.0) 09/22/17 15:50 Eosinophils # 0.1 k/uL (0-0.7) 09/22/17 15:50 Basophils # 0.0 k/uL (0-0.2) 09/22/17 15:50 Sodium 141 mmol/L (137-145) 09/22/17 15:50 Potassium 3.8 mmol/L (3.5-5.1) 09/22/17 15:50 Chloride 107 mmol/L (98-107) 09/22/17 15:50 Carbon Dioxide 20 mmol/L (22-30) L 09/22/17 15:50 Anion Gap 14 mmol/L 09/22/17 15:50 BUN 14 mg/dL (7-17) 09/22/17 15:50 Creatinine 0.71 mg/dL (0.52-1.04) 09/22/17 15:50 Est GFR (CKD-EPI)AfAm >90 (>60 ml/min/1.73 sqM) 09/22/17 15:50 Est GFR (CKD-EPI)NonAf >90 (>60 ml/min/1.73 sqM) 09/22/17 15:50 Glucose 136 mg/dL (74-99) H 09/22/17 15:50 POC Glucose (mg/dL) 123 mg/dL (75-99) H 09/23/17 06:07 POC Glu Network Security Officer ID Estelita Joseph 09/23/17 06:07 Calcium 9.6 mg/dL (8.4-10.2) 09/22/17 15:50 Total Bilirubin 0.7 mg/dL (0.2-1.3) 09/22/17 15:50 AST 29 U/L (14-36) 09/22/17 15:50 ALT 46 U/L (9-52) 09/22/17 15:50 Alkaline Phosphatase 75 U/L (38-126) 09/22/17 15:50 Total Protein 6.8 g/dL (6.3-8.2) 09/22/17 15:50 Albumin 4.2 g/dL (3.5-5.0) 09/22/17 15:50 TSH 1.660 mIU/L (0.465-4.680) 09/22/17 16:01 Urine Color Yellow 09/22/17 14:53 Urine Appearance Cloudy (Clear) H 09/22/17 14:53 Urine pH 6.0 (5.0-8.0) 09/22/17 14:53 Ur Specific [place] 1.014 (1.001-1.035) 09/22/17 14:53 Urine Protein Trace (Negative) H 09/22/17 14:53 Urine Glucose (UA) Negative (Negative) 09/22/17 14:53 Urine Ketones Trace (Negative) H 09/22/17 14:53 Urine Blood Negative (Negative) 09/22/17 14:53 Urine Nitrite Negative (Negative) 09/22/17 14:53 Urine Bilirubin Negative (Negative) 09/22/17 14:53 Urine Urobilinogen 4.0 mg/dL (<2.0) 09/22/17 14:53 Ur Leukocyte Esterase Large (Negative) H 09/22/17 14:53 Urine RBC 31 /hpf (0-5) H 09/22/17 14:53 Urine WBC 46 /hpf (0-5) H 09/22/17 14:53 Ur Squamous Epith Cells 12 /hpf (0-4) H 09/22/17 14:53 Urine Mucus Many /hpf (None) H 09/22/17 14:53 Urine HCG, Qual Not Detected (Not Detectd) 09/22/17 14:53 Salicylates <1.0 mg/dL 09/22/17 15:50 Urine Opiates Screen Not Detected (NotDetected) 09/22/17 14:53 Ur Oxycodone Screen Not Detected (NotDetected) 09/22/17 14:53 Urine Methadone Screen Not Detected (NotDetected) 09/22/17 14:53 Ur Propoxyphene Screen Not Detected (NotDetected) 09/22/17 14:53 Ur Barbiturates Screen Not Detected (NotDetected) 09/22/17 14:53 Valproic Acid 70.4 ug/mL 09/22/17 15:50 U Tricyclic Antidepress Not Detected (NotDetected) 09/22/17 14:53 Ur Phencyclidine Scrn Not Detected (NotDetected) 09/22/17 14:53 Ur Amphetamines Screen Not Detected (NotDetected) 09/22/17 14:53 U Methamphetamines Scrn Not Detected (NotDetected) 09/22/17 14:53 U Benzodiazepines Scrn Not Detected (NotDetected) 09/22/17 14:53 Urine Cocaine Screen Not Detected (NotDetected) 09/22/17 14:53 U Marijuana (THC) Screen Not Detected (NotDetected) 09/22/17 14:53 Acetone, Qual Negative (Negative) 09/22/17 15:50 09/23/17 12:02 IDENTIFYING DATA: A 42-year-old single female patient HPI: Patient is admitted to the inpatient psychiatric unit at [facility] on an involuntary basis. Petition was done by police officers stating "Bebe told me she is suicidal and does not want to live because her boyfriend is not doing well. Bebe said she took 20 pills to kill herself." Patient relays that she took 40 omeprazole pills because she had thoughts of suicide and says she wanted to kill herself. Relays that her mood has been depressed and she hasn't been able to eat. She does not have much interest in things lately. She does not verbalize any significant stressors during the session. PAST PSYCHIATRIC HISTORY: Patient states she's not been taking her medications recently. Per chart her recent medications a been in [facility], trazodone, Cymbalta and Depakote ER. Patient was found in her EKG to have QT prolongation. She states she has been off her medications recently. She sees Dr. Polanco through [facility], no current counselor. She says she's had about 40 inpatient psychiatric hospitalizations. She says she's had too many suicide attempts, many of them have been overdoses. She has difficulty naming her psychotropic medications. History of diagnoses of schizoaffective disorder, bipolar type and mild MR per history PMH: Per chart history asthma, back pain, seizure ALLERGIES: Seroquel, Bactrim, Motrin, lithium, penicillins, Ambien MEDICATIONS: Tylenol when necessary, Maalox when necessary, Lipitor, Depakote ER , Colace, Cymbalta, vitamin D2, Prolixin when necessary, Ativan when necessary, milk of magnesia when necessary, Mobic, Glucophage, Habitrol. CHEMICAL DEPENDENCY HISTORY: Patient denies, per chart history has a history of alcohol and cannabis abuse FAMILY PSYCHIATRIC HISTORY: Denies FAMILY CHEMICAL DEPENDENCY HISTORY: None known at this time SOCIAL HISTORY: Patient says she currently lives with a male roommate who she relays drinks alcohol. She has a boyfriend which she says is going good. She' s never been . She has one child who she says she doesn't get along with and makes the statement that she hates her. MENTAL STATUS EXAM: She is alert and cooperative with the interview. Her affect overall is restricted. She describes her mood as "poor." She still has ongoing thoughts of suicide and really she doesn't feel safe here in the hospital. She says she has thoughts of harm to others in general but does not name any specific person. She does give a history of auditory and visual hallucinations. She says she is hearing voices mainly of her grandmother and grandfather telling her to do dumb things. She denies any current visual hallucinations. Insight has some limitations, judgment is poor. She is noted to have some difficulty with cognition, example having difficulty remembering the names of her psychotropic medications. STRENGTHS/WEAKNESSES: Strengths-in active outpatient treatment; weaknesses- coping skills INTELLECTUAL FUNCTIONING: Below average IMPRESSIONS: AXIS I : Schizoaffective disorder, bipolar type; per chart history history of alcohol and cannabis use disorders. Intellectual developmental disorder per history PLAN: Patient be admitted to the inpatient psychiatric unit on an involuntary basis. She requires inpatient psychiatric hospitalization to stabilize current symptoms of suicidal ideations and psychosis as well as some aspects of depression. She will maintain on one-to-one precautions at this point in time work which were placed yesterday due to concerns for safety. Baseline laboratory workup will be done the patient and medical consultation will be ordered. We will initiate Latuda instead of in [place] which she hadn't been noncompliant with due to Latuda having a lesser risk of QT prolongation. We did discuss her antidepressant medication and she mentioned the Zoloft most recently, it is noted that she has been on Cymbalta and we will maintain Cymbalta at this point in time. Consider alternative antidepressant. We'll maintain Depakote as current and check a Depakote level. Estimated length of stay is 5-7 days. Prognosis is guarded.
[2017-09-23] MEDS: LURASIDONE 40 MG TAB PO SCH (12:37)
[2017-09-23 12:43] LABS: Glucose,Whole Blood 108 mg/dL (75-99)
[2017-09-23 17:12] LABS: Glucose,Whole Blood 109 mg/dL (75-99)
--- NOTE | 2017-09-23 17:52 | P.CONS ---
History of Present Illness - Reason for Consult Consult date: 09/23/17 Medical Management - History of Present Illness 42 year old female with a past medical history of depression and anxiety who presented to the ED for evaluation of suicidal thoughts. Patient had been having intermittent suicidal thoughts for a period of time. Patient did report that she had a appt with [facility] on the of this month. But she was overwhelmed with thoughts of harming herself so she presented to ED. Review of Systems Constitutional: Reports fatigue Eyes: denies blurred vision, denies discharge Ears, nose, mouth and throat: Reports headache Cardiovascular: Denies chest pain, Denies palpitations Respiratory: Denies congestion, Denies cough Gastrointestinal: Reports nausea, Denies abdominal pain Genitourinary: Denies dysuria, Denies hematuria Musculoskeletal: Denies arm numbness/tingling, Denies gait dysfunction Neurological: Denies aphasia, Denies ataxia, Denies confusion Past Medical History Past Medical History: Asthma, GERD/Reflux, Musculoskeletal Disorder, Seizure Disorder Additional Past Medical History / Comment(s): Back Pain; CTS FLORESITA. History of Any Multi-Drug Resistant Organisms: None Reported Past Surgical History: Cholecystectomy, Hysterectomy, Tubal Ligation Additional Past Surgical History / Comment(s): FLORESITA Feet 1990. Past Anesthesia/Blood Transfusion Reactions: Motion Sickness Past Psychological History: Anxiety, Bipolar, Depression, Panic Disorder, Schizoaffective Disorder, Schizophrenia Smoking Status: Former smoker Past Alcohol Use History: None Reported Additional Past Alcohol Use History / Comment(s): SMOKED 25 YEARS, 1PPD, JUST QUIT. Past Drug Use History: None Reported Additional Drug Use History / Comment(s): pt reports she has been taking too many vicodin and Soma today - Past Family History Mother Family Medical History: No Reported History Medications and Allergies Home Medications Medication Instructions Recorded Confirmed Type Divalproex ER [Depakote ER] 1,000 mg PO HS@2100 03/08/16 09/22/17 History Docusate [Colace] 100 mg PO HS 03/08/16 09/22/17 History Ergocalciferol [Vitamin D2 50,000 unit PO MO@0800 01/11/17 09/22/17 History (DRISDOL)] Meloxicam [Mobic] 7.5 mg PO BID@0800,2100 01/11/17 09/22/17 History metFORMIN HCL [Glucophage] 500 mg PO BID@0800,1700 01/11/17 09/22/17 History traZODone HCL [Desyrel] 100 mg PO HS@2100 #30 tab 02/03/17 09/22/17 Rx Acetaminophen-Codeine 300-30mg 1 tab PO Q8H PRN 09/22/17 09/22/17 History [Tylenol #3] DULoxetine HCL [Cymbalta] 30 mg PO BID 09/22/17 09/22/17 History Paliperidone [Invega] 6 mg PO DAILY 09/22/17 09/22/17 History Simvastatin [Zocor] 20 mg PO HS 09/22/17 09/22/17 History Allergies Allergy/AdvReac Type Severity Reaction Status Date / Time quetiapine [From Seroquel] Allergy Rash/Hives Verified 09/22/17 18:05 sulfamethoxazole Allergy Rash/Hives Verified 09/22/17 18:05 [From Bactrim] trimethoprim [From Bactrim] Allergy Rash/Hives Verified 09/22/17 18:05 ibuprofen [From Motrin] AdvReac Nausea Verified 09/22/17 18:05 lithium [[place]] AdvReac Nausea Verified 09/22/17 18:05 Penicillins AdvReac Nausea Verified 09/22/17 18:05 zolpidem [From Ambien] AdvReac nightmares Verified 09/22/17 18:05 Physical Exam Vitals: Vital Signs Temp Pulse Pulse Resp BP BP Pulse Ox 09/23/17 16:23 83 105/61 09/23/17 06:36 68 16 110/61 09/22/17 18:09 97.1 F L 95 18 110/71 09/22/17 17:42 99.2 F 86 18 132/71 95 General appearance: alert and in no acute distress HEENT: AT/NC, PPRRL, EOMI, NECK: Supple without any goiter or lymph nodes HEART: RRR, without any murmurs LUNGS: Clear to auscultate Abdomen: Soft and nontender, BS + Ext: No edema or clubbing Results CBC & Chem 7: 09/22/17 15:50 09/22/17 15:50 Labs: Abnormal Lab Results - Last 24 Hours (Table) 09/22/17 09/23/17 09/23/17 Range/Units 21:49 06:07 12:40 POC Glucose (mg/dL) 188 H 123 H 108 H (75-99) mg/dL 09/23/17 Range/Units 17:08 POC Glucose (mg/dL) 109 H (75-99) mg/dL Assessment and Plan Assessment: 1. Asthma 2. Depression We plan to continue scheduled home inhalers along with prevental inhaler QID PRN. Resume current management of depression per your discression, we will follow the patient with you.
[2017-09-23 20:04] LABS: Glucose,Whole Blood 168 mg/dL (75-99)
[2017-09-23] MEDS: DOCUSATE 100 MG CAP PO SCH (21:05)
[2017-09-23] MEDS: ATORVASTATIN 10 MG TAB PO SCH (21:05)
[2017-09-23] MEDS: DIVALPROEX ER 500 MG TAB.ER.24H PO SCH (21:05)
[2017-09-24] MEDS: DULoxetine HCL 30 MG CAPSULE.DR PO SCH ×3 (09:27→20:09)
[2017-09-24] MEDS: MELOXICAM 7.5 MG TAB PO SCH ×3 (09:27→20:08)
[2017-09-24] MEDS: metFORMIN 500 MG TAB PO SCH ×3 (09:27→17:05)
[2017-09-24] MEDS: LURASIDONE 40 MG TAB PO SCH ×2 (09:28→10:41)
[2017-09-24 10:59] LABS: Glucose,Whole Blood 128 mg/dL (75-99)
--- NOTE | 2017-09-24 15:05 | P.PN ---
Progress Note - Text Progress Note Date: 09/24/17 Interval history: A she has seen in cross coverage today. She reports that her mood is doing all right. She describes she didn't sleep that well last night because she needs her bed linens. She also says she is not eating that well because she is on finger foods. She denies any thoughts of suicide currently. She seems to be tolerating her psychotropic medications well. Mental status exam: She is alert and cooperative with the interview. She was found in her room lying in bed and is cooperative to come to the interview room. She describes her mood as "alright." Her affect is restricted overall, she denies any thoughts of harm to self or others. She does not verbalize any hallucinations. She does not show any agitation. Plan: We'll discontinue the one-to-one precautions and placed back on SP 15 minute precautions. We'll maintain current psychotropic medication regimen. Continue to monitor for any medication side effects and monitor her ongoing response to treatment. Status is improved today.
[2017-09-24] MEDS: ACETAMINOPHEN TAB 325 MG TAB PO PRN (16:50)
[2017-09-24] MEDS: LORazepam 1 MG TAB PO PRN (17:07)
[2017-09-24 17:12] LABS: Glucose,Whole Blood 94 mg/dL (75-99)
[2017-09-24] MEDS: NICOTINE 21MG/24HR PATCH TRANSDERM SCH (18:39)
[2017-09-24] MEDS: ATORVASTATIN 10 MG TAB PO SCH (20:08)
[2017-09-24] MEDS: DOCUSATE 100 MG CAP PO SCH (20:08)
[2017-09-24] MEDS: DIVALPROEX ER 500 MG TAB.ER.24H PO SCH (20:08)
[2017-09-24 20:14] LABS: Glucose,Whole Blood 129 mg/dL (75-99)
[2017-09-25 05:49] LABS: Glucose,Whole Blood 137 mg/dL (75-99)
[2017-09-25] MEDS: MELOXICAM 7.5 MG TAB PO SCH ×2 (08:45→20:40)
[2017-09-25] MEDS: metFORMIN 500 MG TAB PO SCH ×2 (08:45→17:35)
[2017-09-25] MEDS: ERGOCALCIFEROL 50,000 UNIT CAP PO SCH (08:45)
[2017-09-25] MEDS: LURASIDONE 40 MG TAB PO SCH (08:45)
[2017-09-25] MEDS: DULoxetine HCL 30 MG CAPSULE.DR PO SCH ×2 (08:46→20:40)
[2017-09-25] MEDS: NICOTINE 21MG/24HR PATCH TRANSDERM SCH (08:46)
[2017-09-25] MEDS: LORazepam 1 MG TAB PO PRN (09:54)
--- NOTE | 2017-09-25 13:03 | P.PN ---
Progress Note - Text Progress Note Date: 09/25/17 Interval History: Patient is a 42-year-old female being seen in coverage for Dr. Plata. Patient had been admitted after she threatened to commit suicide by taking an overdose of omeprazole. Patient reports to me that she had stopped her medications about 6-8 weeks ago. Today she was found with a knife stating that she wanted to hurt herself and requested to be placed in the quiet room. She told me that she was feeling suicidal because she had found out that her boyfriend who is in the hospital as a 20% chance of survival and is dying. Patient could not tell me who told her this. Patient states that she is continuing to feel suicidal and wants to hurt herself because her boyfriend may . Mental Status: Appearance/Attitude: Patient is casually dressed, makes intermittent eye contact and is cooperative Behavior: Patient did not exhibit any psychomotor agitation or retardation. Speech/Language: Patient's speech is of normal volume and rhythm, she responds to questions with brief answers and little elaboration and is coherent. Thought Process: Patient's responses to questions are brief with little elaboration there is no evidence of tangential or circumstantial thought Thought Content: Patient denies any auditory or visual hallucinations, no delusions or paranoid ideation were elicited. Patient states that she's feeling suicidal because her boyfriend is in the hospital and has a 20% chance of survival, she stated that he is dying. Patient states that she discontinued her medications about 6 weeks ago. Suicidal/Homicidal Ideation: Patient reports that she is feeling suicidal and requested to be in the quiet room, no current homicidal ideation Sensorium/Cognition: Patient is alert and oriented to person, place, and time and no further cognitive testing was performed. Mood/Affect: Patient's mood was depressed and her affect slightly blunted Insight/Judgment: Patient's insight and judgment are limited Assessment: Patient was feeling suicidal this morning, took a knife from the dining room, requested to be in the quiet room. Patient had discontinued all of her medication over 6 weeks ago. She states that she suicidal because her boyfriend is dying. Patient was given a when necessary and placed in the quiet room at her request. Plan: Patient will continue on Depakote extended release 1000 mg at bedtime, Cymbalta 30 mg twice a day and will 2-40 mg in the morning. We will also repeat the patient's urinalysis. Patient continues to require hospitalization to further stabilize her mood. It was suggested that staff assist the patient in contacting her boyfriend's family members to obtain a more accurate assessment of how he is doing.
[2017-09-25 13:14] LABS: Glucose,Whole Blood 113 mg/dL (75-99)
[2017-09-25] MEDS: hydrOXYzine PAMOATE 25 MG CAP PO PRN (13:35)
[2017-09-25 17:33] LABS: Glucose,Whole Blood 123 mg/dL (75-99)
[2017-09-25 20:04] LABS: Glucose,Whole Blood 143 mg/dL (75-99)
[2017-09-25] MEDS: DIVALPROEX ER 500 MG TAB.ER.24H PO SCH (20:40)
[2017-09-25] MEDS: DOCUSATE 100 MG CAP PO SCH (20:41)
[2017-09-25] MEDS: ATORVASTATIN 10 MG TAB PO SCH (20:41)
[2017-09-26] MEDS: ACETAMINOPHEN TAB 325 MG TAB PO PRN ×3 (03:07→20:56)
[2017-09-26] MEDS: hydrOXYzine PAMOATE 25 MG CAP PO PRN (03:07)
[2017-09-26 07:24] LABS: Glucose,Whole Blood 124 mg/dL (75-99)
[2017-09-26] MEDS: LURASIDONE 40 MG TAB PO SCH (08:12)
[2017-09-26] MEDS: metFORMIN 500 MG TAB PO SCH ×3 (08:12→18:05)
[2017-09-26] MEDS: DULoxetine HCL 30 MG CAPSULE.DR PO SCH ×2 (08:12→20:55)
[2017-09-26] MEDS: MELOXICAM 7.5 MG TAB PO SCH ×2 (08:12→20:55)
--- NOTE | 2017-09-26 09:18 | P.PN ---
Progress Note - Text Interval history: The patient is found at the desk clerks supervisor she currently has one- to-one supervision. She carries a diagnosis of schizoaffective disorder opiate use disorder intellectual disability. She is seen by [facility] as an outpatient. She was admitted for suicidal ideation. She was initially seen by Dr. Chapman on this mental health unit. Her outpatient medications were continued as written except for the antipsychotic mood stabilizer being discontinued and replaced with Latuda. She was previously on invega. The patient reportedly took a plastic utensils from the dining room and verbalized an intent to harm herself with them. She has been on one-to-one supervision since. She expresses a discomfort been on one-to-one and we discussed goals for her over the next 24 hours in terms of safety. She has no questions pertaining to her medications other than stating her Cymbalta needs to be increased more. Mental status exam: The patient is an overweight female she has a disheveled appearance. She is dressed in her own clothing. Eye contact is staring in nature. She has little spontaneous speech she does provide answers to questions asked. Affect remains constricted for the most part she expresses frustration later in the session. She reports ongoing thoughts of suicide with plans of hurting herself. She is endorsing no thoughts of harming others. She is endorsing no hallucinations at this moment. She demonstrates no verbal or physical aggressiveness. Insight and judgment are limited. Plan: The patient will continue on her current medications. We will consider titrating the Latuda further during the hospitalization. We will continue one- to-one supervision for acute safety risk and she continues to verbalize acute suicidal thoughts. We discussed coping skills she can utilize when she feels acutely suicidal. She indicates she will not attend groups. Vital signs reviewed they're within normal limits. We will encourage participation in group.
[2017-09-26 12:39] LABS: Glucose,Whole Blood 87 mg/dL (75-99)
[2017-09-26] MEDS: flUPHENAZine 2.5 MG/ML (MDV) 10 ML VIAL IM PRN (14:25)
[2017-09-26] MEDS ORDERED: LORazepam 2 MG/ML INJ IM STA ×2 (14:25→15:56)
[2017-09-26] MEDS ORDERED: LORazepam 2 MG/ML INJ ONE (14:27)
--- NOTE | 2017-09-26 16:55 | P.MHFACE ---
Face to Face Eval of Restraint - Evaluation Patient's Immediate Situation: Endangers others' safety, Endangers staff safety , Other (see comment) Patient's Immediate Situation - Comment: Patient was with a sitter, began throwing books, puzzle pieces, overturning furniture, was seen by me in the quiet room where she said she would continue to throw things, she wanted to be put in restraints, patient said she threw things at home when she is upset. she said she would continue to do so on the unit, she stated she would torch the hospital after discharge. patient left the quiet room was on the unit with a sitter and again became upset, throwing things , threatened to hurt another patient after they were discharged. Patient's Reaction to the Intervention: Calm Patient's Reaction to the Intervention - Comment: patient after being placed in restraints was calmly lying on the bed, she stated she was upset but would not state why Patient's Medical & Behavioral Condition: Awake, Alert, Follows directions Patient's Medical & Behavioral Condition - Comment: patient was awake, alert, cooperating with staff doing vital signs, not pulling on her restraints. she was not responding to internal stimuli, stated she was upset but would not verbalize about what Need to Continue or Terminate Restraint or Seclusion: Continue
[2017-09-26 17:35] LABS: Glucose,Whole Blood 116 mg/dL (75-99)
[2017-09-26] MEDS ORDERED: flUPHENAZine 2.5 MG/ML (MDV) 10 ML VIAL IM STA (19:11)
[2017-09-26] MEDS ORDERED: diphenhydrAMINE 50 MG/ML 1 ML VIAL IM STA (19:12)
[2017-09-26 20:17] LABS: Appearance,Urine Turbid (Clear); Bacteria,Urine Moderate /hpf; Bilirubin,Urine Negative (Negative); Blood,Urine Small (Negative); Color,Urine Yellow; Glucose,Urine (UA) 1+ (Negative); Ketones,Urine 1+ (Negative); Leukocyte Esterase,Urine Large (Negative); Mucus,Urine Rare /hpf; Nitrite,Urine Negative (Negative); Protein,Urine 1+ (Negative); RBC,Urine 143 /hpf (0-5); Specific Gravity,Urine 1.022 (1.001-1.035); Squamous Epithelial Cell,Urine 11 /hpf (0-4); WBC,Urine >182 /hpf (0-5)
[2017-09-26 20:39] LABS: Glucose,Whole Blood 154 mg/dL (75-99)
[2017-09-26] MEDS: DIVALPROEX ER 500 MG TAB.ER.24H PO SCH (20:55)
[2017-09-26] MEDS: DOCUSATE 100 MG CAP PO SCH (20:55)
[2017-09-26] MEDS: ATORVASTATIN 10 MG TAB PO SCH (20:56)
[2017-09-27 06:24] LABS: Glucose,Whole Blood 132 mg/dL (75-99)
[2017-09-27] MEDS: flUPHENAZine 2.5 MG/ML (MDV) 10 ML VIAL IM PRN ×2 (07:27→16:43)
[2017-09-27] MEDS: metFORMIN 500 MG TAB PO SCH ×2 (09:53→17:07)
[2017-09-27] MEDS: DULoxetine HCL 30 MG CAPSULE.DR PO SCH ×2 (09:53→20:28)
[2017-09-27] MEDS: LURASIDONE 40 MG TAB PO SCH (09:53)
[2017-09-27] MEDS: MELOXICAM 7.5 MG TAB PO SCH ×2 (09:53→20:28)
--- NOTE | 2017-09-27 11:06 | P.PN ---
Progress Note - Text Interval history: The patient is found in the hallway seated at the phone. She continues to be on one-to-one supervision. Over the last 24 hours the patient was restrained and required intramuscular as needed medication to calm her agitated behavior. Staff reported she was participating in self-injurious behavior as well as demonstrating threatening/intimidating behavior towards others. It was verified that the patient's significant other of 15 years at [facility]. The patient states that he went in for a colonoscopy at [facility] and his colon was perforated. She states he underwent surgery afterwards to repair the perforation. He was subsequently transferred to [facility]. The patient is able to identify that she feels very sad and hopeless. She was tearful throughout the session. We discussed that it is normal to experience those feelings with a significant loss such as this as well as feelings of anger. We discussed utilizing strategies that would help her express her sadness more fully and in different ways other than violent behavior. We discussed this at treatment team meeting as well. Mental status exam: The patient is alert she has poor eye contact she identifies her mood as being sad and hopeless. She is tearful throughout the session. She identifies acute suicidal ideation and states if she had and implement to kill herself with she would proceed with killing herself. She states she does wants to be with her boyfriend. She is endorsing no homicidal ideation. She is endorsing no auditory or visual hallucinations. Insight and judgment are impaired. She demonstrated no verbal or physical aggressiveness during our session. She remains oriented. Plan: The patient will continue on Latuda we will increase the dose to 60 mg daily for further stabilization of mood. She preferred the Benadryl last evening's I will prescribe that as needed 3 times a day. Staff are encouraged to approach her when possible to help her process her grief and sadness. In session we highlighted appropriate coping skills to utilize during this difficult time. Vital signs reviewed. We will continue her on one-to-one supervision as she has been impulsive in continues to verbalize no acute desire to harm herself.
[2017-09-27] MEDS: diphenhydrAMINE 50 MG CAP PO PRN (11:15)
[2017-09-27] MEDS ORDERED: LURASIDONE 40 MG TAB PO ONE (11:15)
[2017-09-27 12:14] LABS: Glucose,Whole Blood 118 mg/dL (75-99)
[2017-09-27] MEDS: LORazepam 1 MG TAB PO PRN (14:00)
[2017-09-27 17:29] LABS: Glucose,Whole Blood 128 mg/dL (75-99)
[2017-09-27] MEDS: ACETAMINOPHEN TAB 325 MG TAB PO PRN (17:45)
[2017-09-27] MEDS ORDERED: LORazepam 2 MG/ML INJ IM STA (19:15)
[2017-09-27 20:02] LABS: Glucose,Whole Blood 150 mg/dL (75-99)
--- NOTE | 2017-09-27 20:11 | P.MHFACE ---
Face to Face Eval of Restraint - Evaluation Patient's Immediate Situation: Endangers self safety, Endangers others' safety, Endangers staff safety, Violent behavior Patient's Reaction to the Intervention: Calm, Cooperative Patient's Medical & Behavioral Condition: Awake, Alert, Follows directions Patient's Medical & Behavioral Condition - Comment: patient was put back in restraints as she started her destructive behavior ripping off posters from [place], and throwing furniture and books Need to Continue or Terminate Restraint or Seclusion: Continue
[2017-09-27] MEDS: ATORVASTATIN 10 MG TAB PO SCH (20:27)
[2017-09-27] MEDS: DIVALPROEX ER 500 MG TAB.ER.24H PO SCH (20:27)
[2017-09-27] MEDS: DOCUSATE 100 MG CAP PO SCH (20:28)
[2017-09-28] MEDS: LORazepam 1 MG TAB PO PRN ×2 (03:54→16:35)
[2017-09-28] MEDS: flUPHENAZine 2.5 MG/ML (MDV) 10 ML VIAL IM PRN ×2 (04:32→11:40)
[2017-09-28] MEDS: MELOXICAM 7.5 MG TAB PO SCH ×2 (08:27→21:58)
[2017-09-28] MEDS: DULoxetine HCL 30 MG CAPSULE.DR PO SCH ×2 (08:27→21:58)
[2017-09-28] MEDS: metFORMIN 500 MG TAB PO SCH ×2 (08:27→17:28)
[2017-09-28] MEDS: diphenhydrAMINE 50 MG CAP PO PRN (08:33)
[2017-09-28] MEDS ORDERED: LURASIDONE 40 MG TAB PO SCH (09:00)
[2017-09-28] MEDS ORDERED: LURASIDONE 40 MG TAB PO ONE (09:15)
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
[2017-09-28 12:50] LABS: Glucose,Whole Blood 96 mg/dL (75-99)
[2017-09-28 17:43] LABS: Glucose,Whole Blood 132 mg/dL (75-99)
[2017-09-28 20:06] LABS: Glucose,Whole Blood 173 mg/dL (75-99)
[2017-09-28] MEDS ORDERED: flUPHENAZine 2.5 MG/ML (MDV) 10 ML VIAL IM STA (20:12)
[2017-09-28] MEDS ORDERED: LORazepam 2 MG/ML INJ IM STA (20:35)
[2017-09-28] MEDS: DOCUSATE 100 MG CAP PO SCH (21:58)
[2017-09-28] MEDS: ATORVASTATIN 10 MG TAB PO SCH (21:58)
[2017-09-28] MEDS: DIVALPROEX ER 500 MG TAB.ER.24H PO SCH (21:59)
[2017-09-28] MEDS: ACETAMINOPHEN TAB 325 MG TAB PO PRN (22:00)
--- NOTE | 2017-09-28 22:07 | P.MHFACE ---
Face to Face Eval of Restraint - Evaluation Patient's Immediate Situation: Endangers others' safety, Endangers staff safety , Violent behavior Patient's Reaction to the Intervention: Calm, Relaxed, Cooperative Patient's Reaction to the Intervention - Comment: she feels suicidal , no active plan at this time, she still feels depressed due to loss of her boyfriend Patient's Medical & Behavioral Condition: Awake, Alert, Follows directions, Suicidal thoughts Need to Continue or Terminate Restraint or Seclusion: Terminate Need to Continue or Terminate Restraint/Seclusion - Comment: patient seems to be calm now, and she claimed to quit any destructive behavior , she would keep herself busy with reading, or watching TV
[2017-09-29 06:43] LABS: Glucose,Whole Blood 137 mg/dL (75-99)
[2017-09-29] MEDS: LURASIDONE 80 MG TAB PO SCH (08:26)
[2017-09-29] MEDS: metFORMIN 500 MG TAB PO SCH ×2 (08:27→17:11)
[2017-09-29] MEDS: DULoxetine HCL 30 MG CAPSULE.DR PO SCH ×2 (08:27→20:58)
[2017-09-29] MEDS: MELOXICAM 7.5 MG TAB PO SCH ×2 (08:27→20:56)
--- NOTE | 2017-09-29 08:52 | P.PN ---
Progress Note - Text Interval history: The patient is found at the front services agent with one-to-one staff. Nursing informs me that the patient did require seclusion but no restraint yesterday. She did require intramuscular medication for agitated behavior. The patient has been informed that we are pursuing a halfway bed for her and this may be available as soon as early next week. We discussed our treatment goals prior to that discharge. She is verbalizing that she will be able to control her behavior better today knowing that there is a discharge plan. She understands that if her behavior is much improved over the course of today the one-to-one supervision may be discontinued over the weekend. We discussed her psychotropic medications she expresses no concerns and has no questions regarding medication. Mental status exam: The patient is alert she seated calmly at the table. She has a disheveled appearance. Eye contact is appropriate. She does have spontaneous speech. She is reporting no suicidal thoughts today or thoughts of harming others. She is endorsing no auditory or visual hallucinations or any specific delusions. She demonstrates no verbal or physical aggressiveness. Her range of affect is mildly improved she demonstrates some appropriate smiling. Insight and judgment impaired. She remains oriented to person place and date. Plan: The patient will continue on her current psychotropic medications we have recently titrated the Latuda. She will continue on one-to-one supervision. If she is able to demonstrate appropriate behavior during the course of the next 24 hours the one-to-one supervision may be discontinued. We will continue to monitor for safety and encourage appropriate participation in groups. Vital signs reviewed.
[2017-09-29 12:35] LABS: Glucose,Whole Blood 95 mg/dL (75-99)
[2017-09-29] MEDS: LORazepam 1 MG TAB PO PRN (14:33)
[2017-09-29] MEDS: flUPHENAZine 2.5 MG/ML (MDV) 10 ML VIAL IM PRN (17:15)
[2017-09-29 18:19] LABS: Glucose,Whole Blood 133 mg/dL (75-99)
[2017-09-29 20:10] LABS: Glucose,Whole Blood 208 mg/dL (75-99)
[2017-09-29] MEDS: DIVALPROEX ER 500 MG TAB.ER.24H PO SCH (20:56)
[2017-09-29] MEDS: ATORVASTATIN 10 MG TAB PO SCH (20:56)
[2017-09-29] MEDS: DOCUSATE 100 MG CAP PO SCH (20:56)
[2017-09-29] MEDS ORDERED: diphenhydrAMINE 50 MG/ML 1 ML VIAL IM STA (21:24)
[2017-09-30] MEDS: LORazepam 1 MG TAB PO PRN ×2 (01:38→13:44)
[2017-09-30] MEDS: metFORMIN 500 MG TAB PO SCH ×2 (08:15→17:18)
[2017-09-30] MEDS: LURASIDONE 80 MG TAB PO SCH (08:15)
[2017-09-30] MEDS: MELOXICAM 7.5 MG TAB PO SCH ×2 (08:16→20:21)
[2017-09-30] MEDS: DULoxetine HCL 30 MG CAPSULE.DR PO SCH ×2 (08:16→20:20)
[2017-09-30 12:32] LABS: Glucose,Whole Blood 112 mg/dL (75-99)
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
[2017-09-30] MEDS ORDERED: HALOPERIDOL 5 MG TAB PO PRN (15:00)
[2017-09-30] MEDS ORDERED: HALOPERIDOL LACTATE 5 MG/ML 1 ML VIAL IM ONE (15:00)
[2017-09-30] MEDS: ACETAMINOPHEN TAB 325 MG TAB PO PRN (16:03)
[2017-09-30 17:22] LABS: Glucose,Whole Blood 129 mg/dL (75-99)
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
[2017-09-30] MEDS ORDERED: diphenhydrAMINE 50 MG/ML 1 ML VIAL IM STA (19:03)
[2017-09-30] MEDS ORDERED: HALOPERIDOL LACTATE 5 MG/ML 1 ML VIAL IM PRN (19:51)
[2017-09-30] MEDS: DIVALPROEX ER 500 MG TAB.ER.24H PO SCH (20:20)
[2017-09-30] MEDS: ATORVASTATIN 10 MG TAB PO SCH (20:21)
[2017-09-30] MEDS: DOCUSATE 100 MG CAP PO SCH (20:21)
[2017-09-30] MEDS: LORazepam 2 MG/ML INJ IM PRN (22:54)
[2017-09-30] MEDS: flUPHENAZine 2.5 MG/ML (MDV) 10 ML VIAL IM PRN (22:54)
[2017-10-01] MEDS ORDERED: diphenhydrAMINE 50 MG/ML 1 ML VIAL IM PRN (02:14)
[2017-10-01] MEDS: ACETAMINOPHEN TAB 325 MG TAB PO PRN ×3 (03:12→14:57)
[2017-10-01] MEDS: diphenhydrAMINE 50 MG/ML 1 ML VIAL IM PRN ×2 (03:12→18:38)
[2017-10-01] MEDS: metFORMIN 500 MG TAB PO SCH ×2 (08:31→16:52)
[2017-10-01] MEDS: DULoxetine HCL 30 MG CAPSULE.DR PO SCH ×2 (08:31→20:02)
[2017-10-01] MEDS: MELOXICAM 7.5 MG TAB PO SCH ×2 (08:31→20:02)
[2017-10-01] MEDS: LURASIDONE 80 MG TAB PO SCH (08:31)
[2017-10-01] MEDS: flUPHENAZine 2.5 MG/ML (MDV) 10 ML VIAL IM PRN ×2 (09:10→16:22)
[2017-10-01] MEDS: LORazepam 2 MG/ML INJ IM PRN ×2 (09:10→16:21)
[2017-10-01 13:02] LABS: Glucose,Whole Blood 106 mg/dL (75-99)
--- NOTE | 2017-10-01 17:27 | P.PN ---
Progress Note - Text Progress Note Date: 10/01/17 Interval history: Patient was seen today. She reports having racing thoughts and flash backs about her boyfriend. She denies current auditory halluciantions. She reports seeing images of her boyfriend. She denies current suicidal or homicidal ideations. She reports eating and sleeping good. She denies current symptoms of depression. Mental status exam: 42 year old woamn. Appeared her stated age. Fair grooming and hygiene. She is pleasant and cooperative. No abnormal movements noted. Her speech and thought process are slow Her mood is reported as good and affect constricted. She denies current auditory hallucinations. Reports visual halluciantions. She denies paranoia. She denies current suicidal or homicidla ideations.The patient is alert and orientedX4. Her insight and judgment are improving. Plan: Will continue prolixin PRN. Will discontinue haldol 5mg DUE TO RISK OF QT prolongation. The patient will continue on the Latuda 80 mg daily. she will continue her other psychotropic medication as written. continue her 1: 1 observation due to her impulsive and unpredictable behaviors. Will monitor for behavioral problems.
[2017-10-01 18:07] LABS: Glucose,Whole Blood 123 mg/dL (75-99)
[2017-10-01] MEDS: ATORVASTATIN 10 MG TAB PO SCH (20:01)
[2017-10-01] MEDS: DIVALPROEX ER 500 MG TAB.ER.24H PO SCH (20:02)
[2017-10-01] MEDS: DOCUSATE 100 MG CAP PO SCH (20:02)
[2017-10-01 20:03] LABS: Glucose,Whole Blood 184 mg/dL (75-99)
[2017-10-02] MEDS: LORazepam 2 MG/ML INJ IM PRN (01:44)
[2017-10-02] MEDS: ACETAMINOPHEN TAB 325 MG TAB PO PRN ×2 (01:46→11:51)
[2017-10-02] MEDS: flUPHENAZine 2.5 MG/ML (MDV) 10 ML VIAL IM PRN (01:47)
[2017-10-02] MEDS: ERGOCALCIFEROL 50,000 UNIT CAP PO SCH (08:17)
[2017-10-02] MEDS: LURASIDONE 80 MG TAB PO SCH (08:17)
[2017-10-02] MEDS: MELOXICAM 7.5 MG TAB PO SCH ×2 (08:20→21:02)
[2017-10-02] MEDS: metFORMIN 500 MG TAB PO SCH ×2 (08:20→17:55)
[2017-10-02] MEDS: LORazepam 1 MG TAB PO PRN ×2 (08:20→21:51)
[2017-10-02] MEDS: DULoxetine HCL 30 MG CAPSULE.DR PO SCH ×2 (08:20→21:03)
[2017-10-02 08:24] LABS: Glucose,Whole Blood 135 mg/dL (75-99)
--- NOTE | 2017-10-02 09:02 | P.PN ---
Progress Note - Text Interval history: The patient is found in the lead front desk agent she follows me to an interview room. She continues to be on one-to-one supervision. The patient and nursing staff indicate that she did have an episode of impulsivity and agitation Monday evening but none yesterday. She states she feels provoked by a specific individual on the mental health unit whom she is familiar with in the outpatient venue. She reports that she is eating and sleeping adequately. She reports she's having no acute suicidal ideation. She continues to verbalize the goal of being discharged to a custodial setting for additional support. Mental status exam: The patient is alert she presents with adequate hygiene and fair grooming. She is dressed in her own clothing. Eye contact is appropriate. She seated calmly in the chair she demonstrates no agitated behavior. She reports no suicidal or homicidal ideation intent or plan. She states she does get frustrated when provoked by others. Insight and judgment limited. She is demonstrating no verbal or physical aggressiveness during our session or any abnormal involuntary movements. She remains oriented to person place and date. Affect remains bland. Plan: The patient will continue on her current medication. We continue to deal with significant personality disorder pathology. I will discontinue the one-to- one supervision and we will closely monitor her during the day today. We'll continue to continue With [facility] to arrange a custodial placement. I am hoping to discharge the patient this week so long as she has a supportive environment and close follow-up. Vital signs reviewed they're within normal limits.
[2017-10-02] MEDS: diphenhydrAMINE 50 MG CAP PO PRN ×2 (09:04→18:10)
[2017-10-02 13:02] LABS: Glucose,Whole Blood 107 mg/dL (75-99)
[2017-10-02 17:58] LABS: Glucose,Whole Blood 130 mg/dL (75-99)
[2017-10-02 20:34] LABS: Glucose,Whole Blood 143 mg/dL (75-99)
[2017-10-02] MEDS: ATORVASTATIN 10 MG TAB PO SCH (20:58)
[2017-10-02] MEDS: DOCUSATE 100 MG CAP PO SCH (21:01)
[2017-10-02] MEDS: DIVALPROEX ER 500 MG TAB.ER.24H PO SCH (21:01)
[2017-10-03] MEDS: diphenhydrAMINE 50 MG CAP PO PRN ×3 (01:29→20:45)
[2017-10-03] MEDS: ACETAMINOPHEN TAB 325 MG TAB PO PRN ×2 (04:30→17:39)
[2017-10-03 06:39] LABS: Glucose,Whole Blood 125 mg/dL (75-99)
[2017-10-03] MEDS: metFORMIN 500 MG TAB PO SCH ×2 (08:38→17:49)
[2017-10-03] MEDS: DULoxetine HCL 30 MG CAPSULE.DR PO SCH ×2 (08:38→20:45)
[2017-10-03] MEDS: MELOXICAM 7.5 MG TAB PO SCH ×2 (08:38→20:45)
[2017-10-03] MEDS: LURASIDONE 80 MG TAB PO SCH (08:38)
--- NOTE | 2017-10-03 10:49 | P.PN ---
Progress Note - Text Interval history: The patient is found at the past she follows me to an interview room. She has remained off of one-to-one supervision. She is looking forward to half-way placement. She states her suicidal thoughts are resolving. Appetite stable. She has no questions or concerns regarding medication. During treatment team meeting we were informed there is no available half-way bed. Mental status exam: The patient is alert she was cooperative. She is dressed in her own clothing. Eye contact is appropriate. She states her mood is fine. She is reporting no acute suicidal or homicidal ideation intent or plan. She is endorsing no auditory or visual hallucinations or any specific delusions. Speech was nonpressured fluent. She demonstrated no verbal or physical aggressiveness. She demonstrated no abnormal involuntary movements. She remains oriented to person place and date. Insight and judgment improving. Plan: The patient will continue on her current psychotropic medication. We will continue to collaborate with [facility] to determine when half-way placement will be available. We will monitor her for safety and encourage her participation in the milieu. Again she has significant personality disorder pathology. Suggestions for cognitive reframing are offered coping skill development encouraged.
[2017-10-03] MEDS: flUPHENAZine 2.5 MG/ML (MDV) 10 ML VIAL IM PRN ×2 (12:04→21:26)
[2017-10-03] MEDS: LORazepam 2 MG/ML INJ IM PRN ×2 (12:06→21:26)
[2017-10-03 12:59] LABS: Glucose,Whole Blood 95 mg/dL (75-99)
[2017-10-03] MEDS: diphenhydrAMINE 50 MG/ML 1 ML VIAL IM PRN (14:39)
[2017-10-03] MEDS ORDERED: flUPHENAZine 2.5 MG/ML (MDV) 10 ML VIAL IM ONE (16:26)
[2017-10-03 18:09] LABS: Glucose,Whole Blood 137 mg/dL (75-99)
[2017-10-03 20:42] LABS: Glucose,Whole Blood 128 mg/dL (75-99)
[2017-10-03] MEDS: DIVALPROEX ER 500 MG TAB.ER.24H PO SCH (20:45)
[2017-10-03] MEDS: DOCUSATE 100 MG CAP PO SCH (20:45)
[2017-10-03] MEDS: ATORVASTATIN 10 MG TAB PO SCH (20:45)
[2017-10-04 06:34] VITALS: RESP 16
[2017-10-04 07:45] LABS: Glucose,Whole Blood 136 mg/dL (75-99)
[2017-10-04] MEDS: DULoxetine HCL 30 MG CAPSULE.DR PO SCH ×2 (08:50→20:07)
[2017-10-04] MEDS: LURASIDONE 80 MG TAB PO SCH (08:50)
[2017-10-04] MEDS: metFORMIN 500 MG TAB PO SCH ×2 (08:51→17:02)
[2017-10-04] MEDS: MELOXICAM 7.5 MG TAB PO SCH ×2 (08:51→20:08)
--- NOTE | 2017-10-04 09:27 | P.PN ---
Progress Note - Text Interval history: The patient is found the front line leader she follows me to an interview room. She reports feeling frustrated and wants to be discharged today. She states that she is willing to stay with her mother rather than go to a nursing home. Social work notes reviewed. The patient's guardian opposes a plan of the patient returning to family as they feel she is less likely to be compliant with medication. The patient has been able to stay off of one-to-one supervision although she has demonstrated some agitation over the last 24 hours. She did receive injections of when necessary medication. Mental status exam: The patient is alert she seated calmly eye contact is appropriate. Speech is fluent she mainly response to questions asked. Spontaneously she states she would like to be discharged. She reports no suicidal or homicidal ideation. She endorses feelings of irritability but she demonstrates no verbal or physical aggressiveness during our session. She is reporting no auditory or visual hallucinations or any specific delusions. Insight and judgment limited. She remains oriented to person place and date. Affect remains bland. She demonstrates no abnormal involuntary movements. Plan: The patient will continue on her currently prescribed psychotropic medication. We will continue to collaborate with [facility] and the guardian's office regarding her placement. We will continue to monitor her for safety.
[2017-10-04] MEDS: diphenhydrAMINE 50 MG/ML 1 ML VIAL IM PRN (12:21)
[2017-10-04 12:26] LABS: Glucose,Whole Blood 105 mg/dL (75-99)
[2017-10-04] MEDS: LORazepam 1 MG TAB PO PRN (15:24)
[2017-10-04 15:35] VITALS: BMI 30.4
[2017-10-04 17:04] LABS: Glucose,Whole Blood 117 mg/dL (75-99)
[2017-10-04] MEDS: ATORVASTATIN 10 MG TAB PO SCH (20:07)
[2017-10-04] MEDS: DIVALPROEX ER 500 MG TAB.ER.24H PO SCH (20:07)
[2017-10-04] MEDS: diphenhydrAMINE 50 MG CAP PO PRN (20:07)
[2017-10-04] MEDS: DOCUSATE 100 MG CAP PO SCH (20:07)
[2017-10-04 20:26] LABS: Glucose,Whole Blood 168 mg/dL (75-99)
[2017-10-05 06:38] LABS: Glucose,Whole Blood 132 mg/dL (75-99)
[2017-10-05 06:49] VITALS: BP 134/84; PULSE 79; TEMP 97.7
[2017-10-05] MEDS: MELOXICAM 7.5 MG TAB PO SCH (08:30)
[2017-10-05] MEDS: LURASIDONE 80 MG TAB PO SCH (08:30)
[2017-10-05] MEDS: DULoxetine HCL 30 MG CAPSULE.DR PO SCH (08:30)
[2017-10-05] MEDS: metFORMIN 500 MG TAB PO SCH (08:30)
--- NOTE | 2017-10-05 11:15 | P.DS ---
Providers Date of admission: 09/22/17 17:25 Expected date of discharge: 10/05/17 Attending physician: Joseph Plata Consults: 09/22/17 17:40 Consult Physician Routine Consulting Provider: Haily Jain Consult Reason/Comments: H and P Do you want consulting provider notified?: Yes Primary care physician: Mikaela Estrada - Discharge Diagnosis(es) (1) Schizoaffective disorder Current Visit: Yes Status: Acute Priority: High (2) Intellectual disability Current Visit: Yes Status: Acute Priority: Medium Hospital Course: Brief summary of admission note: This patient is a 42-year-old single female who was admitted to the mental health unit on an involuntary basis. The patient was petition by a airframe technical officer stating the patient was suicidal because her boyfriend was very medically ill. The patient had stated she took 20 pills to kill herself. She reported feeling depressed and was unable to eat. For full details please refer to the psychiatric evaluation dictated on . Summary of hospital course: The patient was admitted to the mental health unit in voluntarily. A deferral conference was held and she did defer a full court hearing. She was started on Latuda by Dr. Chapman and we titrated that dose while here. Unfortunately the patient's significant other did and the patient became acutely distraught. She demonstrated aggressive behavior toward others and herself. She required use of physical restraint as well as injections of intramuscular medication. She was on one-to-one supervision for several days. Ultimately the impulsive behavior stopped and she was able to be taken off of one-to-one supervision and has remained off of that level of care. She has been doing well with general suicide precautions over the last several days. Initially the plan was to have her go to a fci but due to the fact there was no availability she will be returning to reside with her mother. Her guardians office has concurred with this plan and the patient will continue to be seen by [facility]. The patient indicates she has no acute intent or plan for harming herself and she is able to keep herself safe at her mother's home. She has been cooperative with medication changes. Mental status exam: The patient is alert she is an overweight female appearing her stated age. She seated calmly she demonstrates no verbal or physical aggressiveness. She indicates her mood is better. She reports having no hopelessness thinking or any suicidal or homicidal ideation intent or plan. She is able to better express an appropriate range of affect. She is endorsing no auditory or visual hallucinations or any specific delusions. There is no observed evidence of psychosis. Her reasoning is chronically concrete. Thought process for the most part is linear she demonstrates no tangential thinking loose associations or flight of ideas. She is oriented to person place and date. She demonstrates no abnormal involuntary movements. Impressions 1. Schizoaffective disorder, intellectual disability, history of opiate and benzodiazepine use disorder, 2. Recent of significant other, impaired coping skills Plan: The patient will be discharged today to her mother's home. Social work has contacted the guardian's office to verify the agree with this placement as there are no fci beds available. The patient will continue with community mental health services. She will continue on Depakote ER 1000 mg at bedtime Cymbalta 30 mg twice daily Latuda 80 mg daily with food. She is instructed to abstain from any use of alcohol or marijuana or any other illicit drug. There is no imminent safety risk she is appropriate for transition back to outpatient care. She is instructed to return to the hospital with any acute safety concerns. Patient Condition at Discharge: Stable Plan - Discharge Summary Discharge Rx Participant: No New Discharge Prescriptions: New Lurasidone [Latuda] 80 mg PO DAILY #30 tab Continue Docusate [Colace] 100 mg PO HS metFORMIN HCL [Glucophage] 500 mg PO BID@0800,1700 Ergocalciferol [Vitamin D2 (DRISDOL)] 50,000 unit PO MO@0800 Meloxicam [Mobic] 7.5 mg PO BID@0800,2100 Simvastatin [Zocor] 20 mg PO HS DULoxetine HCL [Cymbalta] 30 mg PO BID Divalproex ER [Depakote ER] 1,000 mg PO HS@2100 #60 tab.er.24h Discontinued traZODone HCL [Desyrel] 100 mg PO HS@2100 #30 tab Paliperidone [Invega] 6 mg PO DAILY Acetaminophen-Codeine 300-30mg [Tylenol #3] 1 tab PO Q8H PRN PRN Reason: Pain Discharge Medication List Docusate [Colace] 100 mg PO HS 03/08/16 [History] Ergocalciferol [Vitamin D2 (DRISDOL)] 50,000 unit PO MO@0800 01/11/17 [History] Meloxicam [Mobic] 7.5 mg PO BID@0800,2100 01/11/17 [History] metFORMIN HCL [Glucophage] 500 mg PO BID@0800,1700 01/11/17 [History] DULoxetine HCL [Cymbalta] 30 mg PO BID 09/22/17 [History] Simvastatin [Zocor] 20 mg PO HS 09/22/17 [History] Divalproex ER [Depakote ER] 1,000 mg PO HS@2100 #60 tab.er.24h 10/05/17 [Rx] Lurasidone [Latuda] 80 mg PO DAILY #30 tab 10/05/17 [Rx] Follow up Appointment(s)/Referral(s): Mikaela Estrada MD [Primary Care Provider] - 1-2 days
== END 2017-10-05 12:10 | disposition home or self-care (01) | DRG 885 ==
LOC: SUPCPDRO 14:14 → EC 14:14 → 3MHU 17:25
PROVIDERS: ADMIT Psychiatry & Neurology Psychiatry; ATTEND Psychiatry & Neurology Psychiatry
DX: F25.0 Schizoaffective disorder, bipolar type (principal); R45.851 Suicidal ideations; E66.3 Overweight; F11.10 Opioid abuse, uncomplicated; F41.0 Panic disorder [episodic paroxysmal anxiety]; F79 Unspecified intellectual disabilities; G40.909 Epilepsy, unspecified, not intractable, without status epilepticus; J45.909 Unspecified asthma, uncomplicated; K21.9 Gastro-esophageal reflux disease without esophagitis; Z78.1 Physical restraint status; Z87.891 Personal history of nicotine dependence; Z90.710 Acquired absence of both cervix and uterus; Z91.19 Patient's noncompliance with other medical treatment and regimen; Z79.84 Long term (current) use of oral hypoglycemic drugs; Z79.899 Other long term (current) drug therapy; Z88.6 Allergy status to analgesic agent; Z88.0 Allergy status to penicillin; Z88.2 Allergy status to sulfonamides; Z88.8 Allergy status to other drugs, medicaments and biological substances
CPT/HCPCS: 36415; 80053; 80164; 80306; 81001; 81025; 82009; 82075; 83036; 83520; 84443; 85025; 93005; 99285

== ENCOUNTER 2017-10-14 15:05 | Observation (INO) | payer MEDICARE, OTHER ==
[2017-10-14] MEDS ORDERED: SODIUM CHLORIDE 0.9% 1,000 ML IV STA (15:48)
--- NOTE | 2017-10-14 15:55 | ED ---
SOB HPI - General Chief Complaint: Shortness of Breath Stated Complaint: ANGELIKA Time Seen by Provider: 10/14/17 15:13 Source: patient Mode of arrival: EMS Limitations: no limitations - History of Present Illness Initial Comments: 32 years old female comes in with a shortness of breath saying she has a chest pain she is a chest pain or shortness of breath started 3 days ago she said it hurts to take a deep breath she also stated that she ran out of her inhaler last Monday. Denies any abdominal pain no frequency urgency dysuria no symptoms of TIA or CVA. History is quite vague later she stated chest pain started 3 hours ago - Related Data Home Medications Medication Instructions Recorded Confirmed Docusate [Colace] 100 mg PO HS 03/08/16 10/14/17 Ergocalciferol [Vitamin D2 50,000 unit PO MO@0800 01/11/17 10/14/17 (DRISDOL)] Meloxicam [Mobic] 7.5 mg PO BID@0800,2100 01/11/17 10/14/17 metFORMIN HCL [Glucophage] 500 mg PO BID@0800,1700 01/11/17 10/14/17 DULoxetine HCL [Cymbalta] 30 mg PO BID 09/22/17 10/14/17 Simvastatin [Zocor] 20 mg PO HS 09/22/17 10/14/17 Previous Rx's Medication Instructions Recorded Divalproex ER [Depakote ER] 1,000 mg PO HS@2100 #60 tab.er.24h 10/05/17 Lurasidone [Latuda] 80 mg PO DAILY #30 tab 10/05/17 Allergies Allergy/AdvReac Type Severity Reaction Status Date / Time quetiapine [From Seroquel] Allergy Rash/Hives Verified 10/14/17 15:15 sulfamethoxazole Allergy Rash/Hives Verified 10/14/17 15:15 [From Bactrim] trimethoprim [From Bactrim] Allergy Rash/Hives Verified 10/14/17 15:15 ibuprofen [From Motrin] AdvReac Nausea Verified 10/14/17 15:15 lithium [[place]] AdvReac Nausea Verified 10/14/17 15:15 Penicillins AdvReac Nausea Verified 10/14/17 15:15 zolpidem [From Ambien] AdvReac nightmares Verified 10/14/17 15:15 Review of Systems ROS Statement: Those systems with pertinent positive or pertinent negative responses have been documented in the HPI. ROS Other: All systems not noted in ROS Statement are negative. Past Medical History Past Medical History: Asthma, GERD/Reflux, Musculoskeletal Disorder, Seizure Disorder Additional Past Medical History / Comment(s): Back Pain; CTS FLORESITA. History of Any Multi-Drug Resistant Organisms: None Reported Past Surgical History: Cholecystectomy, Hysterectomy, Tubal Ligation Additional Past Surgical History / Comment(s): FLORESITA Feet 1991. Past Anesthesia/Blood Transfusion Reactions: Motion Sickness Past Psychological History: Anxiety, Bipolar, Depression, Panic Disorder, Schizoaffective Disorder, Schizophrenia Smoking Status: Former smoker Past Alcohol Use History: None Reported Past Drug Use History: None Reported - Past Family History Mother Family Medical History: No Reported History General Exam - General Exam Comments Initial Comments: General: The patient is awake and alert, in no distress, and does not appear acutely ill. Seems quite anxious him a GCS is 15 Skin: Skin is warm and dry and no rashes or lesions are noted. Eye: Pupils are equal, round and reactive to light, extra-ocular movements are intact; there is normal conjunctiva bilaterally. Ears, nose, mouth and throat: There are moist mucous membranes and no oral lesions. No erythema noticed in the oropharynx Neck: The neck is supple, there is no tenderness, no focal tenderness over the cervical spine Cardiovascular: There is a regular rate and rhythm. No murmur, rub or gallop is appreciated. Respiratory: To auscultation bilateral, no wheezing no rhonchi no distress respiratory go noticed Gastrointestinal: Soft, non-distended, non-tender abdomen without masses or organomegaly noted. There is no rebound or guarding present. Bowel sounds are unremarkable. Back: There is no tenderness to palpation in the midline. There is no obvious deformity. Musculoskeletal: Normal ROM, no tenderness, There is no pedal edema. There is no calf tenderness or swelling. No cords were appreciated. Neurological: CN II-XII intact, Cranial nerves III through XII are intact. There are no obvious motor or sensory deficits. Coordination appears grossly intact. Speech is normal. Psychiatric: Cooperative, appropriate mood & affect, normal judgment. Limitations: no limitations Course Vital Signs 10/14/17 15:08 Temperature 98.6 F Pulse Rate 85 Respiratory 18 Rate Blood Pressure 118/56 O2 Sat by Pulse 96 Oximetry Reassessment was done, troponin, EKG, CBC, d-dimer unremarkable EKG is normal sinus rhythm ventricular rate is 76 NM interval is 200 QRS duration is 16 QT/QTc is 390/438 review of this EKG does not reveal any ST elevation or ST depression noticed some T-wave flattening in lateral chest leads , this EKG was Compared with the old EKG from mom october 2016 the flattening of the T-wave is quite prominent in V3 V4 V5 and V6 though troponin, d-dimer, chest x-ray, CBC are unremarkable she be admitted for 3 sets of cardiac markers and Dr. Jain service and cardiology be consulted Medical Decision Making - Lab Data Result diagrams: 10/14/17 16:00 10/14/17 16:00 Lab Results 10/14/17 10/14/17 10/14/17 Range/Units 16:00 16:00 16:00 WBC 7.7 (3.8-10.6) k/uL RBC 4.19 (3.80-5.40) m/uL Hgb 13.3 (11.4-16.0) gm/dL Hct 37.5 (34.0-46.0) % MCV 89.5 (80.0-100.0) fL MCH 31.8 (25.0-35.0) pg MCHC 35.6 (31.0-37.0) g/dL RDW 14.3 (11.5-15.5) % Plt Count 227 (150-450) k/uL Neutrophils % 57 % Lymphocytes % 34 % Monocytes % 5 % Eosinophils % 2 % Basophils % 0 % Neutrophils # 4.4 (1.3-7.7) k/uL Lymphocytes # 2.6 (1.0-4.8) k/uL Monocytes # 0.4 (0-1.0) k/uL Eosinophils # 0.1 (0-0.7) k/uL Basophils # 0.0 (0-0.2) k/uL Hyperchromasia Slight PT (9.0-12.0) sec INR (<1.2) APTT (22.0-30.0) sec D-Dimer (<0.60) mg/L FEU Sodium 141 (137-145) mmol/L Potassium 3.8 (3.5-5.1) mmol/L Chloride 106 (98-107) mmol/L Carbon Dioxide 24 (22-30) mmol/L Anion Gap 11 mmol/L BUN 16 (7-17) mg/dL Creatinine 0.67 (0.52-1.04) mg/dL Est GFR (CKD-EPI)AfAm >90 (>60 ml/min/1.73 sqM) Est GFR (CKD-EPI)NonAf >90 (>60 ml/min/1.73 sqM) Glucose 148 H (74-99) mg/dL Calcium 9.5 (8.4-10.2) mg/dL Total Bilirubin 0.3 (0.2-1.3) mg/dL AST 27 (14-36) U/L ALT 66 H (9-52) U/L Alkaline Phosphatase 62 (38-126) U/L Total Creatine Kinase 37 (30-135) U/L CK-MB (CK-2) 0.4 (0.0-2.4) ng/mL CK-MB (CK-2) Rel Index 1.1 Troponin I 0.023 (0.000-0.034) ng/mL Total Protein 6.1 L (6.3-8.2) g/dL Albumin 3.8 (3.5-5.0) g/dL 10/14/17 Range/Units 16:00 WBC (3.8-10.6) k/uL RBC (3.80-5.40) m/uL Hgb (11.4-16.0) gm/dL Hct (34.0-46.0) % MCV (80.0-100.0) fL MCH (25.0-35.0) pg MCHC (31.0-37.0) g/dL RDW (11.5-15.5) % Plt Count (150-450) k/uL Neutrophils % % Lymphocytes % % Monocytes % % Eosinophils % % Basophils % % Neutrophils # (1.3-7.7) k/uL Lymphocytes # (1.0-4.8) k/uL Monocytes # (0-1.0) k/uL Eosinophils # (0-0.7) k/uL Basophils # (0-0.2) k/uL Hyperchromasia PT 9.8 (9.0-12.0) sec INR 1.0 (<1.2) APTT 23.0 (22.0-30.0) sec D-Dimer 0.18 (<0.60) mg/L FEU Sodium (137-145) mmol/L Potassium (3.5-5.1) mmol/L Chloride (98-107) mmol/L Carbon Dioxide (22-30) mmol/L Anion Gap mmol/L BUN (7-17) mg/dL Creatinine (0.52-1.04) mg/dL Est GFR (CKD-EPI)AfAm (>60 ml/min/1.73 sqM) Est GFR (CKD-EPI)NonAf (>60 ml/min/1.73 sqM) Glucose (74-99) mg/dL Calcium (8.4-10.2) mg/dL Total Bilirubin (0.2-1.3) mg/dL AST (14-36) U/L ALT (9-52) U/L Alkaline Phosphatase (38-126) U/L Total Creatine Kinase (30-135) U/L CK-MB (CK-2) (0.0-2.4) ng/mL CK-MB (CK-2) Rel Index Troponin I (0.000-0.034) ng/mL Total Protein (6.3-8.2) g/dL Albumin (3.5-5.0) g/dL Disposition Clinical Impression: Chest pain Disposition: ADMITTED IP TO THIS [facility] Condition: Good Referrals: None,Stated [Primary Care Provider] - 1-2 days
[2017-10-14 16:09] LABS: Basophils % (A) 0 %; Eosinophils # (A) 0.1 k/uL (0-0.7); Eosinophils % (A) 2 %; HCT 37.5 % (34.0-46.0); HGB 13.3 gm/dL (11.4-16.0); Hyperchromasia Slight; Lymphocytes # (A) 2.6 k/uL (1.0-4.8); Lymphocytes % (A) 34 %; MCH 31.8 pg (25.0-35.0); MCHC 35.6 g/dL (31.0-37.0); MCV 89.5 fL (80.0-100.0); Mean Platelet Volume 7.2; Monocytes # (A) 0.4 k/uL (0-1.0); Monocytes % (A) 5 %; Neutrophils # (A) 4.4 k/uL (1.3-7.7); Neutrophils % (A) 57 %; Platelet Count 227 k/uL (150-450); RBC 4.19 m/uL (3.80-5.40); RDW 14.3 % (11.5-15.5); WBC 7.7 k/uL (3.8-10.6)
[2017-10-14 16:20] LABS: ALT 66 U/L (9-52); AST 27 U/L (14-36); Albumin 3.8 g/dL (3.5-5.0); Alkaline Phosphatase 62 U/L (38-126); Anion Gap 11 mmol/L; Blood Urea Nitrogen 16 mg/dL (7-17); Calcium 9.5 mg/dL (8.4-10.2); Carbon Dioxide 24 mmol/L (22-30); Chloride 106 mmol/L (98-107); Glucose 148 mg/dL (74-99); Potassium 3.8 mmol/L (3.5-5.1); Sodium 141 mmol/L (137-145); Total Bilirubin 0.3 mg/dL (0.2-1.3); Total Protein 6.1 g/dL (6.3-8.2)
[2017-10-14 16:25] LABS: D-Dimer 0.18 mg/L FEU (<0.60); Prothrombin Time 9.8 sec (9.0-12.0)
--- NOTE | 2017-10-14 16:32 | XR ---
EXAMINATION TYPE: XR chest 2V DATE OF EXAM: 10/14/2017 COMPARISON: 10/08/2016 HISTORY: Short of breath TECHNIQUE: Frontal and lateral views of the chest are obtained. FINDINGS: Heart and mediastinum are normal. Lungs are clear. Diaphragm is normal. Bony thorax appear s normal. IMPRESSION: Normal chest. No change.
[2017-10-14 16:51] LABS: Creatine Kinase MB 0.4 ng/mL (0.0-2.4); Troponin I 0.023 ng/mL (0.000-0.034)
[2017-10-14] MEDS ORDERED: MORPHINE SULFATE 4 MG/ML SYRINGE IVP PRN (17:07)
[2017-10-14] MEDS ORDERED: NITROGLYCERIN SL TABS 0.4 MG TAB SUBLINGUAL PRN (17:07)
[2017-10-14] MEDS ORDERED: Acetaminophen-Codeine 300-30mg TAB PO PRN (20:03)
[2017-10-14] MEDS ORDERED: ATORVASTATIN 10 MG TAB PO SCH (21:00)
[2017-10-14] MEDS ORDERED: DIVALPROEX ER 500 MG TAB.ER.24H PO SCH (21:00)
[2017-10-14] MEDS ORDERED: DOCUSATE 100 MG CAP PO SCH (21:00)
[2017-10-14] MEDS: MELOXICAM 7.5 MG TAB PO SCH (21:18)
[2017-10-14] MEDS: GABAPENTIN 400 MG CAP PO SCH (21:19)
[2017-10-14] MEDS: DULoxetine HCL 30 MG CAPSULE.DR PO SCH (21:19)
[2017-10-14] MEDS: SERTRALINE 50 MG TAB PO SCH (21:19)
[2017-10-14 21:34] VITALS: BMI 28.0
[2017-10-14 22:22] LABS: Creatine Kinase MB 0.5 ng/mL (0.0-2.4); Troponin I 0.023 ng/mL (0.000-0.034)
[2017-10-15 04:03] LABS: Cholesterol 206 mg/dL (<200); HDL Cholesterol 34 mg/dL (40-60); LDL Cholesterol,Calculated 116 mg/dL (0-99); Triglycerides 279 mg/dL (<150)
[2017-10-15 04:18] LABS: Creatine Kinase MB 0.3 ng/mL (0.0-2.4); Troponin I 0.022 ng/mL (0.000-0.034)
--- NOTE | 2017-10-15 04:34 | HP ---
HISTORY AND PHYSICAL CHIEF COMPLAINTS: Shortness of breath. HISTORY OF PRESENT ILLNESS: This 42-year-old woman with a past history of asthma, GERD, history of seizure disorder, back pain, DJD, history of anxiety, bipolar depression, panic disorder , schizoaffective disorder, being followed by Dr. Miquel Marx in the outpatient setting was complaining of shortness of breath. The patient apparently ran out of for the last 2 days. The patient also complains of chest pain on breathing and the patient came to [facility] and admitted for further evaluation and treatment. There is no history any fever, rigors. No history of headache, loss of consciousness or seizures. PAST MEDICAL: Asthma, GERD, seizure disorder, multiple psych medical issues. Patient had previous inpatient psych. MEDICATIONS: 1. Requip 1 mg q.h.s. 2. Glucophage 500 mg b.i.d. 3. Zocor 20 mg at bedtime. 4. Zoloft 50 mg p.o. daily. 5. Mobic 7.5 b.i.d. 6. Latuda 80 mg p.o. daily. 7. Gabapentin 80 mg p.o. 8. Drisdol 50,000 p.o. Monday. 9. Colace 100 mg q.h.s. 10.Depakote ER 1000 mg q.h.s. 11.Cymbalta 30 mg b.i.d. 12.Tylenol #3 1 p.o. t.i.d. p.r.n. ALLERGIES: PENICILLIN, SEROQUEL, BACTRIM, MOTRIN, LITHIUM, AMBIEN. FAMILY HISTORY: History of cancer, DVT, breast. SOCIAL HISTORY: Previous history of smoking. No history of current smoking or alcohol intake. REVIEW OF SYSTEMS: ENT: No diminished vision or hearing. CARDIOVASCULAR: As mentioned earlier. RESPIRATORY: As mentioned earlier. GI: No nausea. : No dysuria. NERVOUS SYSTEM: No numbness or weakness. ALLERGY/IMMUNOLOGY: As mentioned earlier. HEMATOLOGY: No history anemia. ENDOCRINE: History of diabetes. No hypothyroidism. CONSTITUTIONAL: As mentioned earlier. DERMATOLOGY: Negative. RHEUMATOLOGY: Negative. PSYCHIATRY: As mentioned earlier. PHYSICAL EXAMINATION: Alert and oriented x3. Pulse 74, blood pressure 112/80, respiration 18, temperature 98.8, pulse ox 94% on room air. HEENT: Conjunctivae normal. Oral mucosa moist. NECK: No jugular venous distention. No thyroid enlargement. No carotid bruit. No lymph node enlargement. CARDIOVASCULAR: S1, S2. No S3, no S4. RESPIRATORY: Breath sounds diminished in the bases. A few scattered rhonchi. No crackles. ABDOMEN: Soft, nontender. No mass palpable. LEGS: No edema, no swelling. NERVOUS SYSTEM: Higher functions as mentioned. Moves all 4 limbs. No focal motor or sensory deficits. LYMPHATICS: No lymphadenopathy in the neck, axillae, groin. SKIN: No ulcer, rashes, bleeding. LAB STUDIES: CBC within normal limits. Glucose 148, ALT 66, total 6.1. ASSESSMENT: 1. Shortness of breath possibly acute intermittent asthma exacerbation. 2. Chest pain, possibly pleuritic, rule out coronary artery disease. 3. Increased ALT. 4. Multiple psych issues including anxiety, bipolar depression, panic disorder, schizoaffective disorder, schizophrenia. 5. History of asthma. 6. History of gastroesophageal reflux disease. 7. Seizure disorder. 8. Back pain, degenerative joint disease. 9. History of cholecystectomy. RECOMMENDATIONS AND DISCUSSION: This 42-year-old woman who presented with multiple complex medical issues, will monitor the patient closely. Continue the current management and symptomatic treatment. Continue bronchodilators. I would also recommend rule out acute coronary syndrome. Cardiology consultation. Resume the home medications. Prognosis guarded because of multiple complex medical issues. Further recommendations to follow. Copy of dictation forwarded to Dr. Marx, who is the primary physician. MMDEANDRAL / JUANN: [id number] / MTDD
[2017-10-15] MEDS ORDERED: LURASIDONE 80 MG TAB PO SCH (07:30)
[2017-10-15 07:49] LABS: Glucose,Whole Blood 139 mg/dL (75-99)
[2017-10-15] MEDS ORDERED: metFORMIN 500 MG TAB PO SCH (08:00)
[2017-10-15] MEDS: ALBUTEROL NEBULIZED 2.5 MG/3 ML INHALATION SCH ×2 (08:28→13:35)
--- NOTE | 2017-10-15 08:42 | P.CRDCN ---
History of Present Illness Consult date: 10/15/17 Consult reason: chest pain History of present illness: This is a 42-year-old female patient who presented to the emergency department after an episode of left anterior chest discomfort most sitting watching her daughter play. She did have some radiation to her mid back and pain with movement. She states she had some sweating but no nausea. Patient does not have a cardiac history and has never seen a siderographist in the past. Serial troponins are negative. EKG shows some nonspecific T-wave inversion in lead V1. Normal sinus mechanism. D-dimer is negative and chest x-ray is negative. Patient denies any chest discomfort, shortness of breath or palpitations during my examination. Review of Systems All systems: negative Constitutional: Reports as per HPI Eyes: denies blurred vision Cardiovascular: Reports chest pain Past Medical History Past Medical History: Asthma, GERD/Reflux, Musculoskeletal Disorder, Seizure Disorder Additional Past Medical History / Comment(s): Back Pain; CTS FLORESITA. History of Any Multi-Drug Resistant Organisms: None Reported Past Surgical History: Cholecystectomy, Hysterectomy, Tubal Ligation Additional Past Surgical History / Comment(s): FLORESITA Feet 1990. Past Anesthesia/Blood Transfusion Reactions: Motion Sickness Past Psychological History: Anxiety, Bipolar, Depression, Panic Disorder, Schizoaffective Disorder, Schizophrenia Smoking Status: Former smoker Past Alcohol Use History: None Reported Additional Past Alcohol Use History / Comment(s): SMOKED 25 YEARS, 1PPD, JUST QUIT. Past Drug Use History: None Reported Additional Drug Use History / Comment(s): . - Past Family History Mother Family Medical History: No Reported History Medications and Allergies Home Medications Medication Instructions Recorded Confirmed Type Docusate [Colace] 100 mg PO HS 03/08/16 10/14/17 History Ergocalciferol [Vitamin D2 50,000 unit PO MO@0800 01/11/17 10/14/17 History (DRISDOL)] Meloxicam [Mobic] 7.5 mg PO BID@0800,2100 01/11/17 10/14/17 History metFORMIN HCL [Glucophage] 500 mg PO BID@0800,1700 01/11/17 10/14/17 History DULoxetine HCL [Cymbalta] 30 mg PO BID 09/22/17 10/14/17 History Simvastatin [Zocor] 20 mg PO HS 09/22/17 10/14/17 History Divalproex ER [Depakote ER] 1,000 mg PO HS@2100 #60 tab.er.24h 10/05/17 Rx Lurasidone [Latuda] 80 mg PO DAILY #30 tab 10/05/17 10/14/17 Rx Acetaminophen-Codeine 300-30mg 1 tab PO TID PRN 10/14/17 10/14/17 History [Tylenol w/codeine #3] Gabapentin 800 mg PO TID 10/14/17 10/14/17 History Sertraline [Zoloft] 50 mg PO DAILY 10/14/17 10/14/17 History rOPINIRole HCL [Requip] 1 mg PO HS 10/14/17 10/14/17 History Allergies Allergy/AdvReac Type Severity Reaction Status Date / Time Penicillins Allergy Rash/Hives Verified 10/14/17 17:27 quetiapine [From Seroquel] Allergy Rash/Hives Verified 10/14/17 17:27 sulfamethoxazole Allergy Rash/Hives Verified 10/14/17 17:27 [From Bactrim] trimethoprim [From Bactrim] Allergy Rash/Hives Verified 10/14/17 17:27 ibuprofen [From Motrin] AdvReac Nausea Verified 10/14/17 17:27 lithium [[place]] AdvReac Nausea Verified 10/14/17 17:27 zolpidem [From Ambien] AdvReac nightmares Verified 10/14/17 17:27 Physical Exam Vitals: Vital Signs Temp Pulse Pulse Resp BP BP Pulse Ox 10/15/17 08:28 71 97 10/15/17 04:00 98.4 F 76 18 113/67 92 L 10/15/17 00:00 98.6 F 75 18 110/72 94 L 10/14/17 20:00 98.8 F 74 18 112/80 95 10/14/17 18:57 98.5 F 80 18 115/74 96 10/14/17 18:09 105/63 10/14/17 17:23 74 18 125/53 97 10/14/17 15:08 98.6 F 85 18 118/56 96 Intake and Output 10/14/17 10/15/17 10/15/17 22:59 06:59 14:59 Other: # Voids 1 1 Weight 86.183 kg 86.183 kg - Constitutional General appearance: average body habitus - EENT Eyes: normal appearance ENT: normal oropharynx Ears: bilateral: normal - Neck No JVD Neck: normal ROM Carotids: bilateral: upstroke normal - Respiratory Respiratory: bilateral: CTA - Cardiovascular No murmur Rhythm: regular Heart sounds: normal: S1, S2 - Gastrointestinal General gastrointestinal: normal bowel sounds - Integumentary Integumentary: normal - Neurologic Neurologic: CNII-XII intact - Psychiatric Psychiatric: A&O x's 3 Results 10/14/17 16:00 10/14/17 16:00 Cardiac Enzymes 10/14/17 10/14/17 10/14/17 Range/Units 16:00 16:00 21:36 AST 27 (14-36) U/L CK-MB (CK-2) 0.4 0.5 (0.0-2.4) ng/mL Troponin I 0.023 0.023 (0.000-0.034) ng/mL 10/15/17 Range/Units 03:23 AST (14-36) U/L CK-MB (CK-2) 0.3 (0.0-2.4) ng/mL Troponin I 0.022 (0.000-0.034) ng/mL Coagulation 10/14/17 Range/Units 16:00 PT 9.8 (9.0-12.0) sec APTT 23.0 (22.0-30.0) sec Lipids 10/15/17 Range/Units 03:23 Triglycerides 279 H (<150) mg/dL Cholesterol 206 H (<200) mg/dL HDL Cholesterol 34 L (40-60) mg/dL CBC 10/14/17 Range/Units 16:00 WBC 7.7 (3.8-10.6) k/uL RBC 4.19 (3.80-5.40) m/uL Hgb 13.3 (11.4-16.0) gm/dL Hct 37.5 (34.0-46.0) % Plt Count 227 (150-450) k/uL Comprehensive Metabolic Panel 10/14/17 Range/Units 16:00 Sodium 141 (137-145) mmol/L Potassium 3.8 (3.5-5.1) mmol/L Chloride 106 (98-107) mmol/L Carbon Dioxide 24 (22-30) mmol/L BUN 16 (7-17) mg/dL Creatinine 0.67 (0.52-1.04) mg/dL Glucose 148 H (74-99) mg/dL Calcium 9.5 (8.4-10.2) mg/dL AST 27 (14-36) U/L ALT 66 H (9-52) U/L Alkaline Phosphatase 62 (38-126) U/L Total Protein 6.1 L (6.3-8.2) g/dL Albumin 3.8 (3.5-5.0) g/dL Current Medications Generic Name Dose Route Start Last Admin Trade Name Freq PRN Reason Stop Dose Admin Acetaminophen/Codeine Phosphate 1 each 10/14/17 20:03 Tylenol #3 PO TID PRN Pain Albuterol Sulfate 2.5 mg 10/15/17 08:00 10/15/17 08:28 Ventolin Nebulized INHALATION 2.5 mg RT-TID GEETHA Administration Atorvastatin Calcium 10 mg 10/14/17 21:00 10/14/17 21:20 Lipitor PO 10 mg HS GEETHA Administration Divalproex Sodium 1,000 mg 10/14/17 21:00 10/14/17 21:19 Depakote Er PO 1,000 mg HS@2100 GEETHA Administration Docusate Sodium 100 mg 10/14/17 21:00 10/14/17 21:19 Colace PO 100 mg HS GEETHA Administration Duloxetine HCl 30 mg 10/14/17 21:00 10/14/17 21:19 Cymbalta PO 30 mg BID GEETHA Administration Ergocalciferol 50,000 unit 10/16/17 08:00 Vitamin D2 PO MO@0800 GEETHA Gabapentin 800 mg 10/14/17 22:00 10/14/17 21:19 Neurontin PO 800 mg TID GEETHA Administration Sodium Chloride 1,000 mls @ 50 mls/hr 10/14/17 15:48 10/14/17 16:01 Saline 0.9% IV 10/15/17 11:47 100 mls/hr .Q20H STA Administration Insulin Aspart 0 unit 10/15/17 07:30 Novolog SQ ACHS GEETHA Protocol Lurasidone HCl 80 mg 10/15/17 07:30 Latuda PO W/BRKFST GEETHA Meloxicam 7.5 mg 10/14/17 21:00 10/14/17 21:18 Mobic PO 7.5 mg BID@0800,2100 GEETHA Administration Metformin HCl 500 mg 10/15/17 08:00 Glucophage PO BID@0800,1700 GEETHA Morphine Sulfate 2 mg 10/14/17 17:07 Morphine Sulfate (Inj) IVP Q5M PRN Chest Pain Nitroglycerin 0.4 mg 10/14/17 17:07 Nitrostat SUBLINGUAL Q5M PRN Chest Pain Ropinirole HCl 1 mg 10/14/17 21:00 10/14/17 21:19 Requip PO 1 mg HS GEETHA Administration Sertraline HCl 50 mg 10/14/17 20:15 10/14/17 21:19 Zoloft PO 50 mg DAILY GEETHA Administration Intake and Output 10/14/17 10/15/17 10/15/17 22:59 06:59 14:59 Other: # Voids 1 1 Weight 86.183 kg 86.183 kg 10/14/17 16:00 10/14/17 16:00 - EKG Interpretation EKG: sinus rhythm Assessment and Plan Assessment: Atypical chest pain Musculoskeletal chest and back pain Diabetes mellitus Hyperlipidemia Depression Plan: Obtain echocardiogram to evaluate LV size and systolic function. The patient's pain is atypical and likely musculoskeletal. Serial troponins are negative EKG is not suggestive of ischemic changes. If echocardiogram is normal, the patient may be discharged home and follow up with Dr. Toney for outpatient stress testing.
[2017-10-15] MEDS: MELOXICAM 7.5 MG TAB PO SCH (09:20)
[2017-10-15] MEDS: DULoxetine HCL 30 MG CAPSULE.DR PO SCH (09:22)
[2017-10-15] MEDS: GABAPENTIN 400 MG CAP PO SCH (09:22)
[2017-10-15] MEDS: SERTRALINE 50 MG TAB PO SCH (09:22)
[2017-10-15] MEDS: INSULIN ASPART 100 UNIT/ML 1 ML 10 ML VIAL SQ SCH ×2 (09:35→12:32)
[2017-10-15 11:49] LABS: Glucose,Whole Blood 149 mg/dL (75-99)
[2017-10-15 12:08] VITALS: BP 116/75; RESP 18; TEMP 97.7
[2017-10-15] MEDS ORDERED: MORPHINE ORAL SOLN 10 MG/5 ML CUP PO PRN (12:19)
--- NOTE | 2017-10-15 13:05 | DS ---
DISCHARGE SUMMARY DATE OF SERVICE: 10/15/2017. FINAL DIAGNOSES: 1. Shortness of breath with possible secondary acute intermittent bronchial asthma acute exacerbation. 2. Chest pain possible pleuritic. Myocardial infarction ruled out. 3. Increased ALT. 4. Multiple psych issues including anxiety, bipolar, depression, panic disorder, schizoaffective disorder, schizophrenia. 5. History of asthma. 6. History of gastroesophageal reflux disease. 7. History of seizure disorder. 8. History of back pain, degenerative joint disease. 9. History of cholecystectomy. DISCHARGE DISPOSITION: The patient is being discharged in stable condition with guarded prognosis. HISTORY OF PRESENT ILLNESS: This 42-year-old woman with a past medical history of multiple medical problems was admitted with shortness of breath and possible acute intermittent bronchial asthma acute exacerbation. The patient was treated with bronchodilators. Patient ran out of the inhalers and Cardiology saw the patient and recommended outpatient followup. On exam, vitals are stable. Cardiovascular: S1, S2. Respiratory: A few rhonchi. Abdomen: Soft. Nervous System: No focal discharge. DISCHARGE ADVICE: 1. Diet is cardiac. 2. Activity limited until followup. 3. Follow up with Dr. Miquel Marx in 2-3 days. MEDICATION: 1. Tylenol #3 t.i.d. p.r.n. 2. Ventolin HFA 1-2 puffs q.i.d. p.r.n. 3. Lipitor 10 mg q.h.s. 4. Depakote ER 1000 mg at bedtime. 5. Colace 100 mg p.o. q.h.s. 6.cymbalta 30 mg p.o. b.i.d. 7. Vitamin D 250,000 daily. 8. Gabapentin 800 mg p.o. t.i.d. p.r.n. 9. Latuda 80 mg p.o. daily. 10.Mobic 7.5 p.o. b.i.d. p.r.n. 11.Glucophage 500 mg p.o. daily. 12.Requip 1 mg p.o. q.h.s. 13.Zoloft 50 mg p.o. daily. Once again, the patient will be discharged in stable condition with guarded prognosis. MMODL / IJN: [id number] / [facility]
[2017-10-15 13:44] VITALS: PULSE 87
[2017-10-16] MEDS ORDERED: ERGOCALCIFEROL 50,000 UNIT CAP PO SCH (08:00)
[2017-10-16 11:31] LABS: Hemoglobin A1C 6.7 % (4.0-6.0)
== END 2017-10-15 14:30 | disposition home or self-care (01) ==
LOC: EC 15:05 → 3OBS 17:07 → 3SUR 18:55
PROVIDERS: ADMIT Hospitalist; ATTEND Hospitalist
DX: R07.89 Other chest pain (principal); J45.909 Unspecified asthma, uncomplicated; E11.9 Type 2 diabetes mellitus without complications; G40.909 Epilepsy, unspecified, not intractable, without status epilepticus; M54.9 Dorsalgia, unspecified; R74.0 Nonspecific elevation of levels of transaminase and lactic acid dehydrogenase [LDH]; E78.5 Hyperlipidemia, unspecified; K21.9 Gastro-esophageal reflux disease without esophagitis; M19.90 Unspecified osteoarthritis, unspecified site; F41.0 Panic disorder [episodic paroxysmal anxiety]; F31.9 Bipolar disorder, unspecified; F25.9 Schizoaffective disorder, unspecified; Z87.891 Personal history of nicotine dependence; Z79.84 Long term (current) use of oral hypoglycemic drugs; Z79.1 Long term (current) use of non-steroidal anti-inflammatories (NSAID); Z79.899 Other long term (current) drug therapy; Z88.6 Allergy status to analgesic agent; Z88.1 Allergy status to other antibiotic agents; Z88.0 Allergy status to penicillin; Z88.2 Allergy status to sulfonamides; Z88.8 Allergy status to other drugs, medicaments and biological substances; Z90.710 Acquired absence of both cervix and uterus; Z90.49 Acquired absence of other specified parts of digestive tract
CPT/HCPCS: 99285 ×2; 36415; 94640 ×2; 93005; 85379; 80061; 80053; 82550 ×2; 82553 ×2; 84484 ×2; 85025; 85610; 85730; 83036; 71046; G0378 ×2

== ENCOUNTER 2017-10-15 21:15 | Emergency (ER) | payer MEDICARE, OTHER ==
--- NOTE | 2017-10-15 21:25 | ED ---
General Adult HPI - General Source: patient, RN notes reviewed, old records reviewed <Jagjit Chester - Last Filed: 10/16/17 05:42> <Samuel Burton - Last Filed: 10/16/17 09:24> - General Stated complaint: mental health Time Seen by Provider: 10/15/17 21:17 - History of Present Illness Initial comments: 42-year-old female presenting for evaluation of suicidal and homicidal ideation. Patient denies any suicide attempt. She does have history of mental illness, she was recently admitted to this institution for suicidal ideation and attempt. She denies taking any medications or alcohol today. She denies any physical harm. She states if she had some pills she would take them. She also states that she is planning on hurting other people although the specifics of this are not clear. No physical complaints. (Jagjit Chester) - Related Data Home Medications Medication Instructions Recorded Confirmed Docusate [Colace] 100 mg PO HS 03/08/16 10/15/17 Ergocalciferol [Vitamin D2 50,000 unit PO MO@0800 01/11/17 10/15/17 (DRISDOL)] Meloxicam [Mobic] 7.5 mg PO BID@0800,2100 01/11/17 10/15/17 metFORMIN HCL [Glucophage] 500 mg PO BID@0800,1700 01/11/17 10/15/17 DULoxetine HCL [Cymbalta] 30 mg PO BID 09/22/17 10/15/17 Acetaminophen-Codeine 300-30mg 1 tab PO TID PRN 10/14/17 10/15/17 [Tylenol w/codeine #3] Gabapentin 800 mg PO TID 10/14/17 10/15/17 Sertraline [Zoloft] 50 mg PO DAILY 10/14/17 10/15/17 rOPINIRole HCL [Requip] 1 mg PO HS 10/14/17 10/15/17 Previous Rx's Medication Instructions Recorded Divalproex ER [Depakote ER] 1,000 mg PO HS@2100 #60 tab.er.24h 10/05/17 Lurasidone [Latuda] 80 mg PO DAILY #30 tab 10/05/17 Albuterol Inhaler [Ventolin Hfa 2 puff INHALATION RT-Q6H #1 inhaler 10/15/17 Inhaler] Atorvastatin [Lipitor] 10 mg PO HS #30 tab 10/15/17 Allergies Allergy/AdvReac Type Severity Reaction Status Date / Time Penicillins Allergy Rash/Hives Verified 10/15/17 21:30 quetiapine [From Seroquel] Allergy Rash/Hives Verified 10/15/17 21:30 sulfamethoxazole Allergy Rash/Hives Verified 10/15/17 21:30 [From Bactrim] trimethoprim [From Bactrim] Allergy Rash/Hives Verified 10/15/17 21:30 ibuprofen [From Motrin] AdvReac Nausea Verified 10/15/17 21:30 lithium [[place]] AdvReac Nausea Verified 10/15/17 21:30 zolpidem [From Ambien] AdvReac nightmares Verified 10/15/17 21:30 Review of Systems ROS Other: All systems not noted in ROS Statement are negative. <Jagjit Chester - Last Filed: 10/16/17 05:42> ROS Other: All systems not noted in ROS Statement are negative. <Samuel Burton - Last Filed: 10/16/17 09:24> ROS Statement: Those systems with pertinent positive or pertinent negative responses have been documented in the HPI. Past Medical History Past Medical History: Asthma, GERD/Reflux, Musculoskeletal Disorder, Seizure Disorder Additional Past Medical History / Comment(s): Back Pain; CTS [place]OR[place]. History of Any Multi-Drug Resistant Organisms: None Reported Past Surgical History: Cholecystectomy, Hysterectomy, Tubal Ligation Additional Past Surgical History / Comment(s): FLORESITA Feet 1990. Past Anesthesia/Blood Transfusion Reactions: Motion Sickness Past Psychological History: Anxiety, Bipolar, Depression, Panic Disorder, Schizoaffective Disorder, Schizophrenia Smoking Status: Former smoker Past Alcohol Use History: None Reported Additional Past Alcohol Use History / Comment(s): SMOKED 25 YEARS, 1PPD, JUST QUIT. Past Drug Use History: None Reported Additional Drug Use History / Comment(s): . - Past Family History Mother Family Medical History: No Reported History <Jagjit Chester - Last Filed: 10/16/17 05:42> General Exam General appearance: alert, in no apparent distress Head exam: Present: atraumatic, normocephalic Eye exam: Present: normal appearance, PERRL ENT exam: Present: normal exam Neck exam: Present: normal inspection. Absent: tenderness, meningismus Respiratory exam: Present: normal lung sounds bilaterally. Absent: respiratory distress, wheezes Cardiovascular Exam: Present: regular rate, normal rhythm GI/Abdominal exam: Present: soft. Absent: distended, tenderness Extremities exam: Present: normal inspection, full ROM, normal capillary refill. Absent: pedal edema Neurological exam: Present: alert, oriented X3, CN II-XII intact. Absent: motor sensory deficit Psychiatric exam: Present: depressed, flat affect, homicidal ideation, suicidal ideation Skin exam: Present: warm, dry, intact. Absent: cyanosis, diaphoretic <Jagjit Chester - Last Filed: 10/16/17 05:42> General appearance: alert, in no apparent distress Head exam: Present: atraumatic, normocephalic, normal inspection Eye exam: Present: normal appearance, PERRL, EOMI. Absent: scleral icterus, conjunctival injection, periorbital swelling ENT exam: Present: normal exam, mucous membranes moist Neck exam: Present: normal inspection. Absent: tenderness, meningismus, lymphadenopathy Respiratory exam: Present: normal lung sounds bilaterally. Absent: respiratory distress, wheezes, rales, rhonchi, stridor Cardiovascular Exam: Present: regular rate, normal rhythm, normal heart sounds. Absent: systolic murmur, diastolic murmur, rubs, gallop, clicks GI/Abdominal exam: Present: soft, normal bowel sounds. Absent: distended, tenderness, guarding, rebound, rigid Extremities exam: Present: normal inspection, full ROM, normal capillary refill. Absent: tenderness, pedal edema, joint swelling, calf tenderness Back exam: Present: normal inspection Neurological exam: Present: alert, oriented X3, CN II-XII intact Psychiatric exam: Present: normal affect, normal mood Skin exam: Present: warm, dry, intact, normal color. Absent: rash <Samuel Burton - Last Filed: 10/16/17 09:24> Course <Jagjit Chester - Last Filed: 10/16/17 05:42> <Samuel Burton - Last Filed: 10/16/17 09:24> Vital Signs 10/15/17 21:27 Temperature 98.8 F Pulse Rate 78 Respiratory 18 Rate Blood Pressure 138/68 O2 Sat by Pulse 98 Oximetry - Reevaluation(s) Reevaluation #1: 10/16/17 0100 Patient is evaluated by EPS. Attempts to contact the patient's mother are unsuccessful. Patient will not likely require admission, however the psychiatrist's is uncomfortable with discharged until the case can be discussed with the patient's mother. (Jagjit Chester) Reevaluation #2: 10/16/17 7000 Patient's care is signed out to Dr. Burton, at shift change. Awaiting final EPS disposition. (Jagjit Chester) - Lab Data Lab Results 10/16/17 Range/Units 04:42 Urine Opiates Screen Not Detected (NotDetected) Ur Oxycodone Screen Not Detected (NotDetected) Urine Methadone Screen Not Detected (NotDetected) Ur Propoxyphene Screen Not Detected (NotDetected) Ur Barbiturates Screen Not Detected (NotDetected) U Tricyclic Antidepress Not Detected (NotDetected) Ur Phencyclidine Scrn Not Detected (NotDetected) Ur Amphetamines Screen Not Detected (NotDetected) U Methamphetamines Scrn Not Detected (NotDetected) U Benzodiazepines Scrn Not Detected (NotDetected) Urine Cocaine Screen Not Detected (NotDetected) U Marijuana (THC) Screen Not Detected (NotDetected) Disposition <Jagjit Chester - Last Filed: 10/16/17 05:42> Is patient prescribed a controlled substance at d/c from ED?: No <Samuel Burton - Last Filed: 10/16/17 09:24> Clinical Impression: Depression, Schizoaffective disorder Disposition: HOME SELF-CARE Condition: Fair Instructions: Depression (ED) Referrals: Miquel Marx MD [Primary Care Provider] - 1-2 days
[2017-10-15 21:30] VITALS: RESP 18
[2017-10-16 05:03] LABS: Amphetamine Screen,Urine Not Detected (NotDetected); Barbiturate Screen,Urine Not Detected (NotDetected); Benzodiazepines Screen,Urine Not Detected (NotDetected); Cocaine Screen,Urine Not Detected (NotDetected); Methadone Screen, Urine Not Detected (NotDetected); Opiate Screen,Urine Not Detected (NotDetected); Oxycodone Screen, Urine Not Detected (NotDetected); Phencyclidine Screen,Urine Not Detected (NotDetected); Tricyclic Antidepressant,Urine Not Detected (NotDetected); Urn Cannabinoid Scrn Not Detected (NotDetected)
[2017-10-16 09:48] VITALS: BP 118/60; PULSE 82; TEMP 97.8
== END 2017-10-16 09:46 | disposition home or self-care (01) ==
LOC: EC 21:15
DX: F25.9 Schizoaffective disorder, unspecified (principal); F31.9 Bipolar disorder, unspecified; K21.9 Gastro-esophageal reflux disease without esophagitis; G40.909 Epilepsy, unspecified, not intractable, without status epilepticus; F41.0 Panic disorder [episodic paroxysmal anxiety]; Z87.891 Personal history of nicotine dependence; Z79.1 Long term (current) use of non-steroidal anti-inflammatories (NSAID); Z79.84 Long term (current) use of oral hypoglycemic drugs; Z79.899 Other long term (current) drug therapy; Z88.0 Allergy status to penicillin; Z88.2 Allergy status to sulfonamides; Z88.6 Allergy status to analgesic agent; Z88.8 Allergy status to other drugs, medicaments and biological substances
CPT/HCPCS: 80306; 82075; 99284

== ENCOUNTER 2017-10-17 22:56 | Emergency (ER) | payer MEDICARE, OTHER ==
[2017-10-17 23:09] VITALS: RESP 18
[2017-10-17 23:28] LABS: Appearance,Urine Cloudy (Clear); Bacteria,Urine Occasional /hpf; Bilirubin,Urine Negative (Negative); Blood,Urine Negative (Negative); Color,Urine Light Yellow; Glucose,Urine (UA) 2+ (Negative); Hyaline Casts,Urine 1 /lpf (0-2); Ketones,Urine 1+ (Negative); Leukocyte Esterase,Urine Large (Negative); Mucus,Urine Rare /hpf; Nitrite,Urine Negative (Negative); PH, Urine 5.5 (5.0-8.0); Protein,Urine Trace (Negative); RBC,Urine 42 /hpf (0-5); Squamous Epithelial Cell,Urine 4 /hpf (0-4); Urobilinogen,Urine <2.0 mg/dL (<2.0); WBC,Urine 46 /hpf (0-5)
[2017-10-17 23:35] LABS: Amphetamine Screen,Urine Not Detected (NotDetected); Barbiturate Screen,Urine Not Detected (NotDetected); Benzodiazepines Screen,Urine Not Detected (NotDetected); Cocaine Screen,Urine Not Detected (NotDetected); Methadone Screen, Urine Not Detected (NotDetected); Opiate Screen,Urine Not Detected (NotDetected); Oxycodone Screen, Urine Not Detected (NotDetected); Phencyclidine Screen,Urine Not Detected (NotDetected); Tricyclic Antidepressant,Urine Not Detected (NotDetected); Urn Cannabinoid Scrn Not Detected (NotDetected)
--- NOTE | 2017-10-18 00:24 | ED ---
General Adult HPI - General Source: patient, EMS, RN notes reviewed Mode of arrival: EMS Limitations: no limitations <Matt Cavazos - Last Filed: 10/18/17 00:56> <Samuel Burton - Last Filed: 10/18/17 09:30> - General Chief complaint: Psychiatric Symptoms Stated complaint: Drug Overdose/Mental Health Time Seen by Provider: 10/17/17 23:45 - History of Present Illness Initial comments: Patient is a pleasant 42-year-old female presenting to the emergency department following an overdose. Patient states around 9 AM yesterday she took 14 Depakote and 14 trazodone. Patient admits this was an attempt to harm herself. Patient still has thoughts of self-harm. Patient also has thoughts of harming her guardian. When further questioned regarding this she states she only has anger towards her and would not kill her. Patient is angry because her guardian decreased her monthly check allowance. No alcohol or street drug use. No physical complaints. Patient does have auditory and visual hallucinations that are chronic and unchanged. (Matt Cavazos) - Related Data Home Medications Medication Instructions Recorded Confirmed Docusate [Colace] 100 mg PO HS 03/08/16 10/17/17 Ergocalciferol [Vitamin D2 50,000 unit PO MO@0800 01/11/17 10/17/17 (DRISDOL)] Meloxicam [Mobic] 7.5 mg PO BID@0800,2100 01/11/17 10/17/17 metFORMIN HCL [Glucophage] 500 mg PO BID@0800,1700 01/11/17 10/17/17 DULoxetine HCL [Cymbalta] 30 mg PO BID 09/22/17 10/17/17 Acetaminophen-Codeine 300-30mg 1 tab PO TID PRN 10/14/17 10/17/17 [Tylenol w/codeine #3] Gabapentin 800 mg PO TID 10/14/17 10/17/17 Sertraline [Zoloft] 50 mg PO DAILY 10/14/17 10/17/17 rOPINIRole HCL [Requip] 1 mg PO HS 10/14/17 10/17/17 Previous Rx's Medication Instructions Recorded Divalproex ER [Depakote ER] 1,000 mg PO HS@2100 #60 tab.er.24h 10/05/17 Lurasidone [Latuda] 80 mg PO DAILY #30 tab 10/05/17 Albuterol Inhaler [Ventolin Hfa 2 puff INHALATION RT-Q6H #1 inhaler 10/15/17 Inhaler] Atorvastatin [Lipitor] 10 mg PO HS #30 tab 10/15/17 Allergies Allergy/AdvReac Type Severity Reaction Status Date / Time Penicillins Allergy Rash/Hives Verified 10/17/17 23:09 quetiapine [From Seroquel] Allergy Rash/Hives Verified 10/17/17 23:09 sulfamethoxazole Allergy Rash/Hives Verified 10/17/17 23:09 [From Bactrim] trimethoprim [From Bactrim] Allergy Rash/Hives Verified 10/17/17 23:09 ibuprofen [From Motrin] AdvReac Nausea Verified 10/17/17 23:09 lithium [[place]] AdvReac Nausea Verified 10/17/17 23:09 zolpidem [From Ambien] AdvReac nightmares Verified 10/17/17 23:09 Review of Systems ROS Other: All systems not noted in ROS Statement are negative. Constitutional: Denies: fever Eyes: Denies: eye pain ENT: Denies: ear pain Respiratory: Denies: cough Cardiovascular: Denies: chest pain Endocrine: Denies: fatigue Gastrointestinal: Denies: abdominal pain Genitourinary: Denies: dysuria Musculoskeletal: Denies: back pain Skin: Denies: rash Neurological: Denies: weakness Psychiatric: Reports: depression, auditory hallucinations, visual hallucinations , suicidal thoughts <Matt Cavazos - Last Filed: 10/18/17 00:56> ROS Other: All systems not noted in ROS Statement are negative. <Samuel Burton - Last Filed: 10/18/17 09:30> ROS Statement: Those systems with pertinent positive or pertinent negative responses have been documented in the HPI. Past Medical History Past Medical History: Asthma, GERD/Reflux, Musculoskeletal Disorder, Seizure Disorder Additional Past Medical History / Comment(s): Back Pain; CTS [place]. , History of Any Multi-Drug Resistant Organisms: None Reported Past Surgical History: Cholecystectomy, Hysterectomy, Tubal Ligation Additional Past Surgical History / Comment(s): FLORESITA Feet 1991., Past Anesthesia/Blood Transfusion Reactions: Motion Sickness Past Psychological History: Anxiety, Bipolar, Depression, Panic Disorder, Schizoaffective Disorder, Schizophrenia Smoking Status: Former smoker Past Alcohol Use History: None Reported Past Drug Use History: None Reported - Past Family History Mother Family Medical History: No Reported History <Matt Cavazos - Last Filed: 10/18/17 00:56> General Exam Limitations: no limitations General appearance: alert, in no apparent distress Head exam: Present: atraumatic Eye exam: Present: normal appearance, PERRL, EOMI. Absent: nystagmus ENT exam: Present: normal oropharynx Neck exam: Present: normal inspection Respiratory exam: Present: normal lung sounds bilaterally Cardiovascular Exam: Present: regular rate, normal rhythm GI/Abdominal exam: Present: soft. Absent: tenderness Extremities exam: Present: normal inspection Neurological exam: Present: alert Psychiatric exam: Present: flat affect Skin exam: Present: normal color <Matt Cavazos - Last Filed: 10/18/17 00:56> Vital Signs 10/17/17 10/18/17 10/18/17 22:58 00:51 02:06 Temperature 97.3 F L 99.0 F Pulse Rate 81 78 69 Respiratory 18 18 18 Rate Blood Pressure 132/71 119/91 113/67 O2 Sat by Pulse 97 98 98 Oximetry 10/18/17 10/18/17 10/18/17 03:14 03:40 05:20 Temperature Pulse Rate 70 77 80 Respiratory 18 18 18 Rate Blood Pressure 108/66 148/107 108/61 O2 Sat by Pulse 94 L 97 94 L Oximetry 10/18/17 10/18/17 10/18/17 06:56 08:32 09:28 Temperature 98.0 F Pulse Rate 93 90 89 Respiratory 18 18 18 Rate Blood Pressure 135/75 129/78 O2 Sat by Pulse 95 99 99 Oximetry EKG Findings - EKG Comments: EKG Findings:: Normal sinus rhythm 81. FL 198. QRS 106. QT 416. QTC 43. Normal axis. Normal QRS. No acute ST change. <Matt Cavazos - Last Filed: 10/18/17 00:56> Medical Decision Making <Matt Cavazos - Last Filed: 10/18/17 00:56> - Lab Data Result diagrams: 10/18/17 01:05 10/18/17 01:05 <Samuel Burton - Last Filed: 10/18/17 09:30> - Medical Decision Making 42 female who was seen and evaluated with psychiatry here today, patient can be discharged home (Samuel Burton) - Lab Data Lab Results 10/17/17 10/17/17 10/18/17 Range/Units 23:10 23:10 01:05 WBC (3.8-10.6) k/uL RBC (3.80-5.40) m/uL Hgb (11.4-16.0) gm/dL Hct (34.0-46.0) % MCV (80.0-100.0) fL MCH (25.0-35.0) pg MCHC (31.0-37.0) g/dL RDW (11.5-15.5) % Plt Count (150-450) k/uL Neutrophils % % Lymphocytes % % Monocytes % % Eosinophils % % Basophils % % Neutrophils # (1.3-7.7) k/uL Lymphocytes # (1.0-4.8) k/uL Monocytes # (0-1.0) k/uL Eosinophils # (0-0.7) k/uL Basophils # (0-0.2) k/uL PT (9.0-12.0) sec INR (<1.2) APTT (22.0-30.0) sec Sodium 144 (137-145) mmol/L Potassium 3.6 (3.5-5.1) mmol/L Chloride 105 (98-107) mmol/L Carbon Dioxide 26 (22-30) mmol/L Anion Gap 13 mmol/L BUN 12 (7-17) mg/dL Creatinine 0.70 (0.52-1.04) mg/dL Est GFR (CKD-EPI)AfAm >90 (>60 ml/min/1.73 sqM) Est GFR (CKD-EPI)NonAf >90 (>60 ml/min/1.73 sqM) Glucose 131 H (74-99) mg/dL Calcium 9.6 (8.4-10.2) mg/dL Total Bilirubin 0.3 (0.2-1.3) mg/dL AST 23 (14-36) U/L ALT 49 (9-52) U/L Alkaline Phosphatase 53 (38-126) U/L Ammonia (<30) umol/L Total Protein 6.5 (6.3-8.2) g/dL Albumin 3.9 (3.5-5.0) g/dL Urine Color Light Yellow Urine Appearance Cloudy H (Clear) Urine pH 5.5 (5.0-8.0) Ur Specific [place] 1.010 (1.001-1.035) Urine Protein Trace H (Negative) Urine Glucose (UA) 2+ H (Negative) Urine Ketones 1+ H (Negative) Urine Blood Negative (Negative) Urine Nitrite Negative (Negative) Urine Bilirubin Negative (Negative) Urine Urobilinogen <2.0 (<2.0) mg/dL Ur Leukocyte Esterase Large H (Negative) Urine RBC 42 H (0-5) /hpf Urine WBC 46 H (0-5) /hpf Ur Squamous Epith Cells 4 (0-4) /hpf Urine Bacteria Occasional H (None) /hpf Hyaline Casts 1 (0-2) /lpf Urine Mucus Rare H (None) /hpf Urine HCG, Qual Not Detected (Not Detectd) Salicylates <1.0 mg/dL Urine Opiates Screen Not Detected (NotDetected) Ur Oxycodone Screen Not Detected (NotDetected) Urine Methadone Screen Not Detected (NotDetected) Ur Propoxyphene Screen Not Detected (NotDetected) Acetaminophen <10.0 ug/mL Ur Barbiturates Screen Not Detected (NotDetected) Valproic Acid 123.1 H* ug/mL U Tricyclic Antidepress Not Detected (NotDetected) Ur Phencyclidine Scrn Not Detected (NotDetected) Ur Amphetamines Screen Not Detected (NotDetected) U Methamphetamines Scrn Not Detected (NotDetected) U Benzodiazepines Scrn Not Detected (NotDetected) Urine Cocaine Screen Not Detected (NotDetected) U Marijuana (THC) Screen Not Detected (NotDetected) Serum Alcohol <10 mg/dL 10/18/17 10/18/17 10/18/17 Range/Units 01:05 01:05 03:07 WBC 9.2 (3.8-10.6) k/uL RBC 4.17 (3.80-5.40) m/uL Hgb 13.3 (11.4-16.0) gm/dL Hct 37.3 (34.0-46.0) % MCV 89.4 (80.0-100.0) fL MCH 31.8 (25.0-35.0) pg MCHC 35.6 (31.0-37.0) g/dL RDW 14.0 (11.5-15.5) % Plt Count 214 (150-450) k/uL Neutrophils % 52 % Lymphocytes % 39 % Monocytes % 6 % Eosinophils % 1 % Basophils % 0 % Neutrophils # 4.8 (1.3-7.7) k/uL Lymphocytes # 3.6 (1.0-4.8) k/uL Monocytes # 0.6 (0-1.0) k/uL Eosinophils # 0.1 (0-0.7) k/uL Basophils # 0.0 (0-0.2) k/uL PT 9.8 (9.0-12.0) sec INR 1.0 (<1.2) APTT 23.4 (22.0-30.0) sec Sodium (137-145) mmol/L Potassium (3.5-5.1) mmol/L Chloride (98-107) mmol/L Carbon Dioxide (22-30) mmol/L Anion Gap mmol/L BUN (7-17) mg/dL Creatinine (0.52-1.04) mg/dL Est GFR (CKD-EPI)AfAm (>60 ml/min/1.73 sqM) Est GFR (CKD-EPI)NonAf (>60 ml/min/1.73 sqM) Glucose (74-99) mg/dL Calcium (8.4-10.2) mg/dL Total Bilirubin (0.2-1.3) mg/dL AST (14-36) U/L ALT (9-52) U/L Alkaline Phosphatase (38-126) U/L Ammonia 12 (<30) umol/L Total Protein (6.3-8.2) g/dL Albumin (3.5-5.0) g/dL Urine Color Urine Appearance (Clear) Urine pH (5.0-8.0) Ur Specific [place] (1.001-1.035) Urine Protein (Negative) Urine Glucose (UA) (Negative) Urine Ketones (Negative) Urine Blood (Negative) Urine Nitrite (Negative) Urine Bilirubin (Negative) Urine Urobilinogen (<2.0) mg/dL Ur Leukocyte Esterase (Negative) Urine RBC (0-5) /hpf Urine WBC (0-5) /hpf Ur Squamous Epith Cells (0-4) /hpf Urine Bacteria (None) /hpf Hyaline Casts (0-2) /lpf Urine Mucus (None) /hpf Urine HCG, Qual (Not Detectd) Salicylates mg/dL Urine Opiates Screen (NotDetected) Ur Oxycodone Screen (NotDetected) Urine Methadone Screen (NotDetected) Ur Propoxyphene Screen (NotDetected) Acetaminophen ug/mL Ur Barbiturates Screen (NotDetected) Valproic Acid ug/mL U Tricyclic Antidepress (NotDetected) Ur Phencyclidine Scrn (NotDetected) Ur Amphetamines Screen (NotDetected) U Methamphetamines Scrn (NotDetected) U Benzodiazepines Scrn (NotDetected) Urine Cocaine Screen (NotDetected) U Marijuana (THC) Screen (NotDetected) Serum Alcohol mg/dL 10/18/17 Range/Units 05:18 WBC (3.8-10.6) k/uL RBC (3.80-5.40) m/uL Hgb (11.4-16.0) gm/dL Hct (34.0-46.0) % MCV (80.0-100.0) fL MCH (25.0-35.0) pg MCHC (31.0-37.0) g/dL RDW (11.5-15.5) % Plt Count (150-450) k/uL Neutrophils % % Lymphocytes % % Monocytes % % Eosinophils % % Basophils % % Neutrophils # (1.3-7.7) k/uL Lymphocytes # (1.0-4.8) k/uL Monocytes # (0-1.0) k/uL Eosinophils # (0-0.7) k/uL Basophils # (0-0.2) k/uL PT (9.0-12.0) sec INR (<1.2) APTT (22.0-30.0) sec Sodium (137-145) mmol/L Potassium (3.5-5.1) mmol/L Chloride (98-107) mmol/L Carbon Dioxide (22-30) mmol/L Anion Gap mmol/L BUN (7-17) mg/dL Creatinine (0.52-1.04) mg/dL Est GFR (CKD-EPI)AfAm (>60 ml/min/1.73 sqM) Est GFR (CKD-EPI)NonAf (>60 ml/min/1.73 sqM) Glucose (74-99) mg/dL Calcium (8.4-10.2) mg/dL Total Bilirubin (0.2-1.3) mg/dL AST (14-36) U/L ALT (9-52) U/L Alkaline Phosphatase (38-126) U/L Ammonia (<30) umol/L Total Protein (6.3-8.2) g/dL Albumin (3.5-5.0) g/dL Urine Color Urine Appearance (Clear) Urine pH (5.0-8.0) Ur Specific [place] (1.001-1.035) Urine Protein (Negative) Urine Glucose (UA) (Negative) Urine Ketones (Negative) Urine Blood (Negative) Urine Nitrite (Negative) Urine Bilirubin (Negative) Urine Urobilinogen (<2.0) mg/dL Ur Leukocyte Esterase (Negative) Urine RBC (0-5) /hpf Urine WBC (0-5) /hpf Ur Squamous Epith Cells (0-4) /hpf Urine Bacteria (None) /hpf Hyaline Casts (0-2) /lpf Urine Mucus (None) /hpf Urine HCG, Qual (Not Detectd) Salicylates mg/dL Urine Opiates Screen (NotDetected) Ur Oxycodone Screen (NotDetected) Urine Methadone Screen (NotDetected) Ur Propoxyphene Screen (NotDetected) Acetaminophen ug/mL Ur Barbiturates Screen (NotDetected) Valproic Acid 117.6 H* ug/mL U Tricyclic Antidepress (NotDetected) Ur Phencyclidine Scrn (NotDetected) Ur Amphetamines Screen (NotDetected) U Methamphetamines Scrn (NotDetected) U Benzodiazepines Scrn (NotDetected) Urine Cocaine Screen (NotDetected) U Marijuana (THC) Screen (NotDetected) Serum Alcohol mg/dL Disposition <Matt Cavazos - Last Filed: 10/18/17 00:56> Is patient prescribed a controlled substance at d/c from ED?: No <Samuel Burton - Last Filed: 10/18/17 09:30> Clinical Impression: Schizoaffective disorder Disposition: HOME SELF-CARE Condition: Good Instructions: Schizoaffective Disorder (ED) Referrals: Miquel Marx MD [Primary Care Provider] - 1-2 days
[2017-10-18 01:14] LABS: Basophils % (A) 0 %; Eosinophils # (A) 0.1 k/uL (0-0.7); Eosinophils % (A) 1 %; HCT 37.3 % (34.0-46.0); HGB 13.3 gm/dL (11.4-16.0); Lymphocytes # (A) 3.6 k/uL (1.0-4.8); Lymphocytes % (A) 39 %; MCH 31.8 pg (25.0-35.0); MCHC 35.6 g/dL (31.0-37.0); MCV 89.4 fL (80.0-100.0); Mean Platelet Volume 7.8; Monocytes # (A) 0.6 k/uL (0-1.0); Monocytes % (A) 6 %; Neutrophils # (A) 4.8 k/uL (1.3-7.7); Neutrophils % (A) 52 %; Platelet Count 214 k/uL (150-450); RBC 4.17 m/uL (3.80-5.40); WBC 9.2 k/uL (3.8-10.6)
[2017-10-18 01:25] LABS: ALT 49 U/L (9-52); AST 23 U/L (14-36); Acetaminophen <10.0 ug/mL; Albumin 3.9 g/dL (3.5-5.0); Alcohol <10 mg/dL; Alkaline Phosphatase 53 U/L (38-126); Anion Gap 13 mmol/L; Blood Urea Nitrogen 12 mg/dL (7-17); Calcium 9.6 mg/dL (8.4-10.2); Carbon Dioxide 26 mmol/L (22-30); Chloride 105 mmol/L (98-107); Glucose 131 mg/dL (74-99); Potassium 3.6 mmol/L (3.5-5.1); Salicylate <1.0 mg/dL; Sodium 144 mmol/L (137-145); Total Bilirubin 0.3 mg/dL (0.2-1.3); Total Protein 6.5 g/dL (6.3-8.2)
[2017-10-18 01:35] LABS: Partial Thromboplastin Time 23.4 sec (22.0-30.0); Prothrombin Time 9.8 sec (9.0-12.0)
[2017-10-18 02:00] LABS: Valproic Acid (Depakene) 123.1 ug/mL
[2017-10-18] MEDS ORDERED: LORazepam 2 MG/ML INJ IV STA ×2 (03:46→06:48)
[2017-10-18 09:29] VITALS: BP 129/78; PULSE 89; TEMP 98
== END 2017-10-18 09:38 | disposition home or self-care (01) ==
LOC: EC 22:56
DX: F25.9 Schizoaffective disorder, unspecified (principal); K21.9 Gastro-esophageal reflux disease without esophagitis; G40.909 Epilepsy, unspecified, not intractable, without status epilepticus; F31.9 Bipolar disorder, unspecified; F41.0 Panic disorder [episodic paroxysmal anxiety]; Z88.0 Allergy status to penicillin; Z88.1 Allergy status to other antibiotic agents; Z88.2 Allergy status to sulfonamides; Z88.6 Allergy status to analgesic agent; Z88.8 Allergy status to other drugs, medicaments and biological substances; Z79.84 Long term (current) use of oral hypoglycemic drugs; Z79.899 Other long term (current) drug therapy; Z87.891 Personal history of nicotine dependence
CPT/HCPCS: 99285; 96374; 96376; 36415; 93005; 80164; 80053; 82140; 85025; 85610; 85730; 81001; 81025; 80306; 83520 ×2; 80320; 87086; J2060

== ENCOUNTER 2017-10-18 20:19 | Inpatient (IN) | payer MEDICARE, OTHER ==
[2017-10-18] MEDS ORDERED: ACTIVATED CHARCOAL-SORBITOL 50 GM/240 ML BOTTLE PO STA (21:17)
--- NOTE | 2017-10-18 21:19 | ED ---
General Adult HPI - General Chief complaint: Psychiatric Symptoms Stated complaint: Overdose Time Seen by Provider: 10/18/17 20:50 Source: patient, RN notes reviewed Mode of arrival: ambulatory Limitations: no limitations - History of Present Illness Initial comments: Patient is a pleasant 42-year-old female returning to the emergency department for suicidal thoughts and drug ingestion. Patient states a couple hours ago she took approximately 14 Depakote and 14 of her trazodone. Patient states she has suicidal thoughts and this was an attempt to harm herself. Patient also has thoughts of harming others related with her anger. Patient has hallucinations that are chronic and unchanged. No physical complaints. No alcohol or street drug use. - Related Data Home Medications Medication Instructions Recorded Confirmed Docusate [Colace] 100 mg PO HS 03/08/16 10/18/17 Ergocalciferol [Vitamin D2 50,000 unit PO MO@0800 01/11/17 10/18/17 (DRISDOL)] Meloxicam [Mobic] 7.5 mg PO BID@0800,2100 01/11/17 10/18/17 metFORMIN HCL [Glucophage] 500 mg PO BID@0800,1700 01/11/17 10/18/17 DULoxetine HCL [Cymbalta] 30 mg PO BID 09/22/17 10/18/17 Acetaminophen-Codeine 300-30mg 1 tab PO TID PRN 10/14/17 10/18/17 [Tylenol w/codeine #3] Gabapentin 800 mg PO TID 10/14/17 10/18/17 Sertraline [Zoloft] 50 mg PO DAILY 10/14/17 10/18/17 rOPINIRole HCL [Requip] 1 mg PO HS 10/14/17 10/18/17 Albuterol Inhaler [Ventolin Hfa 2 puff INHALATION RT-Q6H PRN 10/18/17 10/18/17 Inhaler] Budesonide [Pulmicort Flexhaler] 2 puff INHALATION RT-DAILY 10/18/17 10/18/17 Previous Rx's Medication Instructions Recorded Divalproex ER [Depakote ER] 1,000 mg PO HS@2100 #60 tab.er.24h 10/05/17 Lurasidone [Latuda] 80 mg PO DAILY #30 tab 10/05/17 Atorvastatin [Lipitor] 10 mg PO HS #30 tab 10/15/17 Allergies Allergy/AdvReac Type Severity Reaction Status Date / Time Penicillins Allergy Rash/Hives Verified 10/18/17 21:03 quetiapine [From Seroquel] Allergy Rash/Hives Verified 10/18/17 21:03 sulfamethoxazole Allergy Rash/Hives Verified 10/18/17 21:03 [From Bactrim] trimethoprim [From Bactrim] Allergy Rash/Hives Verified 10/18/17 21:03 ibuprofen [From Motrin] AdvReac Nausea Verified 10/18/17 21:03 lithium [[place]] AdvReac Nausea Verified 10/18/17 21:03 zolpidem [From Ambien] AdvReac nightmares Verified 10/18/17 21:03 Review of Systems ROS Statement: Those systems with pertinent positive or pertinent negative responses have been documented in the HPI. ROS Other: All systems not noted in ROS Statement are negative. Constitutional: Denies: fever Eyes: Denies: eye pain ENT: Denies: ear pain Respiratory: Denies: cough Cardiovascular: Denies: chest pain Endocrine: Denies: fatigue Gastrointestinal: Denies: abdominal pain Genitourinary: Denies: dysuria Musculoskeletal: Denies: back pain Skin: Denies: rash Neurological: Denies: weakness Psychiatric: Reports: depression, auditory hallucinations, visual hallucinations , suicidal thoughts Past Medical History Past Medical History: Asthma, GERD/Reflux, Musculoskeletal Disorder, Seizure Disorder Additional Past Medical History / Comment(s): Back Pain; CTS FLORESITA. , History of Any Multi-Drug Resistant Organisms: None Reported Past Surgical History: Cholecystectomy, Hysterectomy, Tubal Ligation Additional Past Surgical History / Comment(s): FLORESITA Feet 1990, history of severe benzo addiction Past Anesthesia/Blood Transfusion Reactions: Motion Sickness Past Psychological History: Anxiety, Bipolar, Depression, Panic Disorder, Schizoaffective Disorder, Schizophrenia Smoking Status: Former smoker Past Alcohol Use History: None Reported Past Drug Use History: None Reported - Past Family History Mother Family Medical History: No Reported History General Exam Limitations: no limitations General appearance: alert, in no apparent distress Head exam: Present: atraumatic Eye exam: Present: normal appearance, EOMI Neck exam: Present: normal inspection Respiratory exam: Present: normal lung sounds bilaterally Cardiovascular Exam: Present: regular rate, normal rhythm GI/Abdominal exam: Present: soft. Absent: tenderness Extremities exam: Present: normal inspection Neurological exam: Present: alert Psychiatric exam: Present: flat affect Skin exam: Present: normal color Course Vital Signs 10/18/17 10/18/17 20:26 22:28 Temperature 98.3 F Pulse Rate 118 H 102 H Respiratory 20 18 Rate Blood Pressure 139/82 127/58 O2 Sat by Pulse 97 92 L Oximetry EKG Findings - EKG Comments: EKG Findings:: Normal sinus rhythm 96. WA 192. QRS 104. QT 374. QTC 472. Left axis. Normal QRS. No acute ST change. Medical Decision Making - Medical Decision Making Poison control did recommend observation and repeat Depakote level at 2 AM. Case was discussed with Dr. Max, covering for Dr. Marx, who will admit. Patient reevaluated and updated. - Lab Data Result diagrams: 10/18/17 21:35 10/18/17 21:35 Lab Results 10/18/17 10/18/17 10/18/17 Range/Units 21:35 21:35 21:35 WBC 9.7 (3.8-10.6) k/uL RBC 4.25 (3.80-5.40) m/uL Hgb 13.3 (11.4-16.0) gm/dL Hct 38.5 (34.0-46.0) % MCV 90.7 (80.0-100.0) fL MCH 31.3 (25.0-35.0) pg MCHC 34.5 (31.0-37.0) g/dL RDW 14.3 (11.5-15.5) % Plt Count 223 (150-450) k/uL Neutrophils % 63 % Lymphocytes % 30 % Monocytes % 5 % Eosinophils % 1 % Basophils % 0 % Neutrophils # 6.1 (1.3-7.7) k/uL Lymphocytes # 2.9 (1.0-4.8) k/uL Monocytes # 0.5 (0-1.0) k/uL Eosinophils # 0.1 (0-0.7) k/uL Basophils # 0.0 (0-0.2) k/uL Sodium 142 (137-145) mmol/L Potassium 3.4 L (3.5-5.1) mmol/L Chloride 103 (98-107) mmol/L Carbon Dioxide 25 (22-30) mmol/L Anion Gap 14 mmol/L BUN 9 (7-17) mg/dL Creatinine 0.60 (0.52-1.04) mg/dL Est GFR (CKD-EPI)AfAm >90 (>60 ml/min/1.73 sqM) Est GFR (CKD-EPI)NonAf >90 (>60 ml/min/1.73 sqM) Glucose 123 H (74-99) mg/dL Calcium 9.6 (8.4-10.2) mg/dL Total Bilirubin 0.4 (0.2-1.3) mg/dL AST 21 (14-36) U/L ALT 45 (9-52) U/L Alkaline Phosphatase 52 (38-126) U/L Ammonia 43 H (<30) umol/L Total Protein 6.3 (6.3-8.2) g/dL Albumin 3.9 (3.5-5.0) g/dL Urine HCG, Qual (Not Detectd) Salicylates <1.0 mg/dL Urine Opiates Screen (NotDetected) Ur Oxycodone Screen (NotDetected) Urine Methadone Screen (NotDetected) Ur Propoxyphene Screen (NotDetected) Acetaminophen <10.0 ug/mL Ur Barbiturates Screen (NotDetected) Valproic Acid 138.4 H* ug/mL U Tricyclic Antidepress (NotDetected) Ur Phencyclidine Scrn (NotDetected) Ur Amphetamines Screen (NotDetected) U Methamphetamines Scrn (NotDetected) U Benzodiazepines Scrn (NotDetected) Urine Cocaine Screen (NotDetected) U Marijuana (THC) Screen (NotDetected) Serum Alcohol <10 mg/dL 10/18/17 10/18/17 Range/Units 21:48 21:48 WBC (3.8-10.6) k/uL RBC (3.80-5.40) m/uL Hgb (11.4-16.0) gm/dL Hct (34.0-46.0) % MCV (80.0-100.0) fL MCH (25.0-35.0) pg MCHC (31.0-37.0) g/dL RDW (11.5-15.5) % Plt Count (150-450) k/uL Neutrophils % % Lymphocytes % % Monocytes % % Eosinophils % % Basophils % % Neutrophils # (1.3-7.7) k/uL Lymphocytes # (1.0-4.8) k/uL Monocytes # (0-1.0) k/uL Eosinophils # (0-0.7) k/uL Basophils # (0-0.2) k/uL Sodium (137-145) mmol/L Potassium (3.5-5.1) mmol/L Chloride (98-107) mmol/L Carbon Dioxide (22-30) mmol/L Anion Gap mmol/L BUN (7-17) mg/dL Creatinine (0.52-1.04) mg/dL Est GFR (CKD-EPI)AfAm (>60 ml/min/1.73 sqM) Est GFR (CKD-EPI)NonAf (>60 ml/min/1.73 sqM) Glucose (74-99) mg/dL Calcium (8.4-10.2) mg/dL Total Bilirubin (0.2-1.3) mg/dL AST (14-36) U/L ALT (9-52) U/L Alkaline Phosphatase (38-126) U/L Ammonia (<30) umol/L Total Protein (6.3-8.2) g/dL Albumin (3.5-5.0) g/dL Urine HCG, Qual Not Detected (Not Detectd) Salicylates mg/dL Urine Opiates Screen Not Detected (NotDetected) Ur Oxycodone Screen Not Detected (NotDetected) Urine Methadone Screen Not Detected (NotDetected) Ur Propoxyphene Screen Not Detected (NotDetected) Acetaminophen ug/mL Ur Barbiturates Screen Not Detected (NotDetected) Valproic Acid ug/mL U Tricyclic Antidepress Not Detected (NotDetected) Ur Phencyclidine Scrn Not Detected (NotDetected) Ur Amphetamines Screen Not Detected (NotDetected) U Methamphetamines Scrn Detected H (NotDetected) U Benzodiazepines Scrn Detected H (NotDetected) Urine Cocaine Screen Not Detected (NotDetected) U Marijuana (THC) Screen Not Detected (NotDetected) Serum Alcohol mg/dL Disposition Clinical Impression: Valproic acid toxicity Disposition: ADMITTED IP TO THIS HOSP Referrals: Miquel Marx MD [Primary Care Provider] - 1-2 days Decision Time: 23:18
[2017-10-18 22:02] LABS: Basophils % (A) 0 %; Eosinophils # (A) 0.1 k/uL (0-0.7); Eosinophils % (A) 1 %; HCT 38.5 % (34.0-46.0); HGB 13.3 gm/dL (11.4-16.0); Lymphocytes # (A) 2.9 k/uL (1.0-4.8); Lymphocytes % (A) 30 %; MCH 31.3 pg (25.0-35.0); MCHC 34.5 g/dL (31.0-37.0); MCV 90.7 fL (80.0-100.0); Mean Platelet Volume 7.4; Monocytes # (A) 0.5 k/uL (0-1.0); Monocytes % (A) 5 %; Neutrophils # (A) 6.1 k/uL (1.3-7.7); Neutrophils % (A) 63 %; Platelet Count 223 k/uL (150-450); RBC 4.25 m/uL (3.80-5.40); RDW 14.3 % (11.5-15.5); WBC 9.7 k/uL (3.8-10.6)
[2017-10-18 22:13] LABS: Amphetamine Screen,Urine Not Detected (NotDetected); Barbiturate Screen,Urine Not Detected (NotDetected); Benzodiazepines Screen,Urine Detected (NotDetected); Cocaine Screen,Urine Not Detected (NotDetected); Methadone Screen, Urine Not Detected (NotDetected); Opiate Screen,Urine Not Detected (NotDetected); Oxycodone Screen, Urine Not Detected (NotDetected); Phencyclidine Screen,Urine Not Detected (NotDetected); Tricyclic Antidepressant,Urine Not Detected (NotDetected); Urn Cannabinoid Scrn Not Detected (NotDetected)
[2017-10-18 22:13] LABS: ALT 45 U/L (9-52); AST 21 U/L (14-36); Acetaminophen <10.0 ug/mL; Albumin 3.9 g/dL (3.5-5.0); Alcohol <10 mg/dL; Alkaline Phosphatase 52 U/L (38-126); Anion Gap 14 mmol/L; Blood Urea Nitrogen 9 mg/dL (7-17); Calcium 9.6 mg/dL (8.4-10.2); Carbon Dioxide 25 mmol/L (22-30); Chloride 103 mmol/L (98-107); Glucose 123 mg/dL (74-99); Potassium 3.4 mmol/L (3.5-5.1); Salicylate <1.0 mg/dL; Sodium 142 mmol/L (137-145); Total Bilirubin 0.4 mg/dL (0.2-1.3); Total Protein 6.3 g/dL (6.3-8.2)
[2017-10-18 22:23] LABS: Valproic Acid (Depakene) 138.4 ug/mL
[2017-10-18] MEDS ORDERED: NALOXONE 0.4 MG/ML 1 ML VIAL IV PRN (23:18)
[2017-10-19] MEDS: SODIUM CHLORIDE 0.9% 1,000 ML IV SCH ×3 (01:05→17:55)
[2017-10-19 02:53] LABS: Valproic Acid (Depakene) 156.1 ug/mL
[2017-10-19 07:05] LABS: Glucose,Whole Blood 127 mg/dL (75-99)
[2017-10-19 10:35] LABS: HCT 38.1 % (34.0-46.0); HGB 13.3 gm/dL (11.4-16.0); MCH 32.4 pg (25.0-35.0); MCHC 34.8 g/dL (31.0-37.0); Mean Platelet Volume 7.4; Platelet Count 216 k/uL (150-450); RBC 4.09 m/uL (3.80-5.40); RDW 14.5 % (11.5-15.5)
[2017-10-19 10:39] LABS: ALT 42 U/L (9-52); AST 17 U/L (14-36); Albumin 3.6 g/dL (3.5-5.0); Alkaline Phosphatase 48 U/L (38-126); Anion Gap 11 mmol/L; Blood Urea Nitrogen 8 mg/dL (7-17); Calcium 8.8 mg/dL (8.4-10.2); Carbon Dioxide 28 mmol/L (22-30); Chloride 104 mmol/L (98-107); Glucose 119 mg/dL (74-99); Potassium 3.8 mmol/L (3.5-5.1); Sodium 143 mmol/L (137-145); Total Bilirubin 0.4 mg/dL (0.2-1.3)
[2017-10-19] MEDS ORDERED: ACETAMINOPHEN TAB 500 MG TAB PO PRN (11:04)
[2017-10-19] MEDS ORDERED: ALBUTEROL NEBULIZED 2.5 MG/3 ML INHALATION PRN (11:33)
[2017-10-19 11:54] LABS: Glucose,Whole Blood 151 mg/dL (75-99)
[2017-10-19] MEDS: LACTULOSE 20 GM/30 ML CUP PO SCH ×2 (12:45→22:14)
--- NOTE | 2017-10-19 13:17 | P.HPIM ---
History of Present Illness 42-year-old female came in and depressed or suicidal ideation overdose on Depakote and trazodone patient is presently tremulous because of trazodone patient has normal liver enzymes EKG did not show any significant abnormality patient is awake feels anxious. Patient has one-on-one sitter patient was recently discharged from psychiatric floor. Patient had elevated ammonia patient is receiving lactulose IV fluids, his metabolic profile showed normal liver enzymes. We will repeat liver enzymes later today INR later today along with ammonia today and tomorrow morning. Patient denied any fever chills nausea vomiting dysuria Review of Systems REVIEW OF SYSTEMS: CONSTITUTIONAL: No fever, no malaise, no fatigue. HEENT: No recent visual problems or hearing problems. Denied any sore throat. CARDIOVASCULAR: No chest pain, orthopnea, PND, no palpitations, no syncope. PULMONARY: No shortness of breath, no cough, no hemoptysis. GASTROINTESTINAL: No diarrhea, no nausea, no vomiting, no abdominal pain. Normoactive bowel sounds. NEUROLOGICAL: No headaches, no weakness, no numbness. HEMATOLOGICAL: Denies any bleeding or petechiae. GENITOURINARY: Denies any burning micturition, frequency, or urgency. MUSCULOSKELETAL/RHEUMATOLOGICAL: Denies any joint pain, swelling, or any muscle pain. ENDOCRINE: Denies any polyuria or polydipsia. The rest of the 14-point review of systems is negative. Past Medical History Past Medical History: Asthma, GERD/Reflux, Musculoskeletal Disorder, Seizure Disorder Additional Past Medical History / Comment(s): Back Pain; CTS FLORESITA. , History of Any Multi-Drug Resistant Organisms: None Reported Past Surgical History: Cholecystectomy, Hysterectomy, Tubal Ligation Additional Past Surgical History / Comment(s): FLORESITA Feet 1990, history of severe benzo addiction Past Anesthesia/Blood Transfusion Reactions: Motion Sickness Past Psychological History: Anxiety, Bipolar, Depression, Panic Disorder, Schizoaffective Disorder, Schizophrenia Smoking Status: Never smoker Past Alcohol Use History: None Reported Additional Past Alcohol Use History / Comment(s): SMOKED 25 YEARS, 1PPD, JUST QUIT. Past Drug Use History: None Reported Additional Drug Use History / Comment(s): . - Past Family History Mother Family Medical History: No Reported History Medications and Allergies Home Medications Medication Instructions Recorded Confirmed Type Docusate [Colace] 100 mg PO HS 03/08/16 10/18/17 History Ergocalciferol [Vitamin D2 50,000 unit PO MO@0800 01/11/17 10/18/17 History (DRISDOL)] Meloxicam [Mobic] 7.5 mg PO BID@0800,2100 01/11/17 10/18/17 History metFORMIN HCL [Glucophage] 500 mg PO BID@0800,1700 01/11/17 10/18/17 History DULoxetine HCL [Cymbalta] 30 mg PO BID 09/22/17 10/18/17 History Divalproex ER [Depakote ER] 1,000 mg PO HS@2100 #60 tab.er.24h 10/05/17 Rx Lurasidone [Latuda] 80 mg PO DAILY #30 tab 10/05/17 10/18/17 Rx Acetaminophen-Codeine 300-30mg 1 tab PO TID PRN 10/14/17 10/18/17 History [Tylenol w/codeine #3] Gabapentin 800 mg PO TID 10/14/17 10/18/17 History Sertraline [Zoloft] 50 mg PO DAILY 10/14/17 10/18/17 History rOPINIRole HCL [Requip] 1 mg PO HS 10/14/17 10/18/17 History Atorvastatin [Lipitor] 10 mg PO HS #30 tab 10/15/17 10/18/17 Rx Albuterol Inhaler [Ventolin Hfa 2 puff INHALATION RT-Q6H PRN 10/18/17 10/18/17 History Inhaler] Budesonide [Pulmicort Flexhaler] 2 puff INHALATION RT-DAILY 10/18/17 10/18/17 History Allergies Allergy/AdvReac Type Severity Reaction Status Date / Time Penicillins Allergy Rash/Hives Verified 10/18/17 21:03 quetiapine [From Seroquel] Allergy Rash/Hives Verified 10/18/17 21:03 sulfamethoxazole Allergy Rash/Hives Verified 10/18/17 21:03 [From Bactrim] trimethoprim [From Bactrim] Allergy Rash/Hives Verified 10/18/17 21:03 ibuprofen [From Motrin] AdvReac Nausea Verified 10/18/17 21:03 lithium [[place]] AdvReac Nausea Verified 10/18/17 21:03 zolpidem [From Ambien] AdvReac nightmares Verified 10/18/17 21:03 Physical Exam Vitals: Vital Signs Temp Pulse Pulse Resp BP BP Pulse Ox 10/19/17 06:00 97.7 F 84 17 121/79 94 L 10/19/17 01:00 98.0 F 98 18 151/93 92 L 10/18/17 23:33 105 H 16 131/81 93 L 10/18/17 22:28 102 H 18 127/58 92 L 10/18/17 20:26 98.3 F 118 H 20 139/82 97 Intake and Output 10/18/17 10/19/17 10/19/17 22:59 06:59 14:59 Other: Voiding Method Toilet # Voids 1 Weight 94.801 kg PHYSICAL EXAMINATION: GENERAL: The patient is alert and oriented x3, not in any acute distress. Well developed, well nourished. Patient is tremulous depressed HEENT: Pupils are round and equally reacting to light. EOMI. No scleral icterus. No conjunctival pallor. Normocephalic, atraumatic. No pharyngeal erythema. No thyromegaly. CARDIOVASCULAR: S1 and S2 present. No murmurs, rubs, or gallops. PULMONARY: Chest is clear to auscultation, no wheezing or crackles. ABDOMEN: Soft, nontender, nondistended, normoactive bowel sounds. No palpable organomegaly. MUSCULOSKELETAL: No joint swelling or deformity. EXTREMITIES: No cyanosis, clubbing, or pedal edema. NEUROLOGICAL: Gross neurological examination did not reveal any focal deficits. SKIN: No rashes. Results CBC & Chem 7: 10/19/17 08:06 10/19/17 08:06 Labs: Abnormal Lab Results - Last 24 Hours (Table) 10/18/17 10/18/17 10/18/17 Range/Units 21:35 21:35 21:48 Potassium 3.4 L (3.5-5.1) mmol/L Glucose 123 H (74-99) mg/dL POC Glucose (mg/dL) (75-99) mg/dL Ammonia 43 H (<30) umol/L Total Protein (6.3-8.2) g/dL Valproic Acid 138.4 H* ug/mL U Methamphetamines Scrn Detected H (NotDetected) U Benzodiazepines Scrn Detected H (NotDetected) 10/19/17 10/19/17 10/19/17 Range/Units 01:58 07:03 08:06 Potassium (3.5-5.1) mmol/L Glucose (74-99) mg/dL POC Glucose (mg/dL) 127 H (75-99) mg/dL Ammonia (<30) umol/L Total Protein (6.3-8.2) g/dL Valproic Acid 156.1 H* 153.8 H* ug/mL U Methamphetamines Scrn (NotDetected) U Benzodiazepines Scrn (NotDetected) 10/19/17 10/19/17 10/19/17 Range/Units 08:06 08:06 11:25 Potassium (3.5-5.1) mmol/L Glucose 119 H (74-99) mg/dL POC Glucose (mg/dL) 151 H (75-99) mg/dL Ammonia 54 H (<30) umol/L Total Protein 6.0 L (6.3-8.2) g/dL Valproic Acid ug/mL U Methamphetamines Scrn (NotDetected) U Benzodiazepines Scrn (NotDetected) Thrombosis Risk Factor Assmnt - Choose All That Apply Any of the Below Risk Factors Present?: Yes Each Factor Represents 1 point: Age 41-60 years, Obesity (BMI >25) Other Risk Factors: No Other congenital or acquired thrombophilia - If yes, enter type in comment: No Thrombosis Risk Factor Assessment Total Risk Factor Score: 2 Thrombosis Risk Factor Assessment Level: Low Risk Assessment and Plan Plan: -Suicide attempt: Psychiatric was consulted patient has one-on-one sitter -Depakote overdose: Repeat ammonia later in the day and the lactulose as mentioned above monitor liver function did -Trazodone overdose: Patient has mildly prolonged QTC monitor QT. Patient's tremors are secondary to trazodone. I will leave the decision of continuing SSRIs to psychiatrry -Restless leg syndrome for which patient is on Requip which will be continued -Type 2 diabetes mellitus metformin can be continued -Gastroesophageal reflux disease -Bipolar disorder management as per psychiatry
--- NOTE | 2017-10-19 15:28 | P.CN ---
Psychiatric Consult - . Consult date: 10/19/17 Consult:: 10/19/17 15:06 Identification: Patient is a 42-year-old female who was brought to the emergency room due to taking an overdose of Depakote and trazodone Reason for Consult: Suicide attempt History of Present Illness: Patient's chart was reviewed, patient was seen and interviewed in her room no family members were present. Patient was just recently discharged from the inpatient psychiatric unit on October 05. Patient at that time was to be taking Cymbalta 30 mg twice a day, Latuda 80 mg a day and Depakote extended release 1000 mg at bedtime, the patient was not on trazodone she was not on gabapentin she was not on Zoloft. Patient states to me that she has been prescribed trazodone by a PCP, she states the [facility]ab[facility]entin however she is yet to be seen by [facility] prescribing providers. Patient states that she is in control of her own medication at home, and states that she's been taking an overdose of pills for the last 5 days in a row taking 28 Depakote a day for 5 days and 28 100 mg trazodone a day. Patient states that she was also buying Xanax on the street and purchased 15 and took them yesterday and Monday. She states that she got 10 methamphetamines from a friend and took those as well. Patient states that she has 2 bottles of Zoloft at home, 2 bottles of #180 gabapentin at home and states that she takes that infrequently. In reviewing the patient's medication list she also apparently picked up Tylenol 3 # 90 on October 10. Patient was also not on Requip when she was on the inpatient psychiatric unit. Patient states that she doesn't want to live and has nothing in the world to live for. She states that yesterday her boyfriend called her and said he had 2 weeks to live, while the patient was on the inpatient psychiatric unit it was reported that he had . Patient states that his daughter took her to visit him at [facility] and she states that her guardian told her that she cannot go back there again this weekend. Patient states that she will continue to take pills at home in an attempt to kill herself because she doesn't want to live and doesn't like living with her mother who she states nags her and fights with her about everything. When I asked her to elaborate on why she didn't want to live she could not explain it further and when I asked her what her mother was nagging her about she said that her mother was asking her to do things and she went and bought groceries the other day and wondered why that wasn't sufficient. She states that she wants to be in a custodial. She states that she will continue to take pills until someone puts her in a custodial. She stated to me that "find me a place where I won't hurt myself". Patient has been living with her mother and she states is no one else in the house with them. Patient has a public guardian who she states gives her $75 a week here patient states that since her discharge she has been [facility] but only by her therapist. When I asked the patient when the last time she was seen she couldn't remember, patient was just at [facility] yesterday this was confirmed by them and when I confronted the patient with it she said that yes she was there yesterday but didn't see her therapist and I asked her why she did not tell anyone that she was feeling suicidal and she stated because there wasn't anyone there to tell. Patient states that she is feeling depressed and not sleeping at all, and continues to feel suicidal. P ast Psychiatric History: patient was recently discharged from the inpatient psychiatric unit and was there from September 22 until 10/05/2017. Patient has many prior inpatient psychiatric admissions and was at this hospital in the inpatient psychiatric unit in 2017. Prior to her most recent admission she had not been compliant with her medication for 6 week period. Past Medical/Surgical History: asthma, seizure disorder, back pain Social History: Patient was living with her boyfriend prior to her last admission since her discharge earlier this month she has been living with her mother. Patient has never been Substance Use History: patient states that she drinks 5-6 wine coolers daily, denies any use of marijuana and states that she recently purchased Xanax on the street and was using methamphetamine that a friend gave her. Mental status: Appearance/Attitude: Patient was in a hospital gown, sitting at the edge of the bed, she made intermittent eye contact and was superficially cooperative Behavior: Patient did not exhibit any psychomotor agitation or retardation. Speech/Language: Patient speech was of normal volume and rhythm and she was coherent Thought Process: Patient was goal-directed although needed encouragement to be more elaborative on her responses there is no evidence of loose association or flight of ideas Thought Content: Patient denied auditory or visual hallucinations, no delusions or paranoid ideation were elicited. Patient states that she is feeling depressed and doesn't want to live, she states that there is nothing to live for. She states that she has been taking medication for the last 5 days in an attempt to kill herself. Patient states that she did not discuss any of this with [facility] when she was there yesterday. Patient states that she's not been sleeping well. Suicidal/Homicidal Ideation: Patient states that she doesn't want to live, has been taking an overdose of medications for the last 5 days in an attempt to kill herself and states that a cousin came to the house yesterday and saw the way she looked and brought her into the hospital. Patient states that she will continue to take more pills unless she is placed in a custodial. she denies any current homicidal ideations Sensorium/Cognition: Patient is alert and oriented to person, place, time and patient has a history of intellectual disability Mood/Affect: Patient's mood is sullen and her affect is slightly blunted Insight/Judgment: Patient's insight and judgment are limited Assessment: Patient was most recently in the inpatient unit and discharged on October 05. Since that time the patient has begun taking multiple medications including her Cymbalta, Latuda and Depakote she is also been prescribed trazodone, gabapentin, Requip as well as Tylenol 3. Patient states that she's been taking 28 Depakote a day and 28 trazodone a day for the last 5 days in an attempt to kill herself. Patient has been in the emergency room for the hospital on October 14 she was admitted for shortness of breath, Monday she was in the emergency room for chest pain, Monday she presented to the emergency room complaining of suicidal thoughts and Monday she came into the hospital brought in by her cousin because she did not look well. Patient states that she doesn't want to live dislikes living with her mother and also states that her boyfriend told her that he only had 2 weeks to live. While the patient was on the inpatient unit it was reported that her boyfriend with whom she had been living had . Patient states that she also purchased methamphetamine and benzodiazepines which showed up in her UDS in an attempt to overdose. She states that she wants to be in a custodial and will continue to take pills until someone places her in a place where she won't be able to hurt herself. Patient has a history of intellectual disability and has been treated for a mood disorder with a prior history of psychotic symptoms. Diagnosis: Schizoaffective disorder; intellectual disability by history Plan: Patient continues to verbalize suicidal ideation and so continue the one- to-one suicide precautions. Patient at this time does not need to be restarted on her Cymbalta Latuda or Depakote. Patient will require inpatient psychiatric care once she is medically stabilized, please contact the inpatient psychiatric unit. Patient does not require trazodone, Requip which I will discontinue and patient was not on gabapentin during her last psychiatric hospitalization and I' m unclear why she is on gabapentin, from a psychiatric standpoint this can certainly be discontinued. Patient should not be begun on any opiate pain medication, she was on a nonsteroidal anti-inflammatory for her back pain while on the psychiatric unit. While reviewing a MAPS on the patient she has received prescriptions for Tylenol 3 #90 on October 10, 09/16, 08/15 and prior as well. We will follow while in the hospital, contact the psychiatric unit when the patient is medically stable. 10/19/17 15:08 10/19/17 15:22 10/19/17 15:23 10/19/17 15:26
[2017-10-19] MEDS: GABAPENTIN 400 MG CAP PO SCH ×2 (17:58→22:15)
[2017-10-19] MEDS: metFORMIN 500 MG TAB PO SCH (17:58)
[2017-10-19 18:10] LABS: Glucose,Whole Blood 126 mg/dL (75-99)
[2017-10-19 19:16] LABS: ALT 41 U/L (9-52); AST 17 U/L (14-36); Albumin 3.6 g/dL (3.5-5.0); Alkaline Phosphatase 50 U/L (38-126); Anion Gap 10 mmol/L; Blood Urea Nitrogen 7 mg/dL (7-17); Calcium 9.2 mg/dL (8.4-10.2); Carbon Dioxide 28 mmol/L (22-30); Chloride 102 mmol/L (98-107); Glucose 120 mg/dL (74-99); Potassium 3.9 mmol/L (3.5-5.1); Sodium 140 mmol/L (137-145); Total Bilirubin 0.3 mg/dL (0.2-1.3); Total Protein 6.1 g/dL (6.3-8.2)
[2017-10-19] MEDS ORDERED: HALOPERIDOL LACTATE 5 MG/ML 1 ML VIAL IM PRN (19:16)
[2017-10-19 19:18] LABS: Prothrombin Time 10.2 sec (9.0-12.0)
[2017-10-19 19:22] LABS: Valproic Acid (Depakene) 134.2 ug/mL
[2017-10-19] MEDS: BUDESONIDE 0.5 MG/2 ML NEBU INHALATION SCH (19:43)
[2017-10-19] MEDS ORDERED: ATORVASTATIN 10 MG TAB PO SCH (21:00)
[2017-10-19] MEDS: MELOXICAM 7.5 MG TAB PO SCH (22:16)
[2017-10-20] MEDS: SODIUM CHLORIDE 0.9% 1,000 ML IV SCH (01:41)
[2017-10-20 05:49] VITALS: RESP 16
[2017-10-20 07:11] LABS: Glucose,Whole Blood 151 mg/dL (75-99)
[2017-10-20 07:43] LABS: ALT 37 U/L (9-52); AST 14 U/L (14-36); Albumin 3.4 g/dL (3.5-5.0); Alkaline Phosphatase 47 U/L (38-126); Anion Gap 8 mmol/L; Blood Urea Nitrogen 10 mg/dL (7-17); Calcium 9.2 mg/dL (8.4-10.2); Carbon Dioxide 32 mmol/L (22-30); Chloride 100 mmol/L (98-107); Glucose 154 mg/dL (74-99); Potassium 3.6 mmol/L (3.5-5.1); Sodium 140 mmol/L (137-145); Total Bilirubin 0.4 mg/dL (0.2-1.3); Total Protein 5.6 g/dL (6.3-8.2)
[2017-10-20 07:51] LABS: Prothrombin Time 9.9 sec (9.0-12.0)
[2017-10-20] MEDS: BUDESONIDE 0.5 MG/2 ML NEBU INHALATION SCH (08:07)
[2017-10-20 08:50] LABS: Valproic Acid (Depakene) 91.2 ug/mL
[2017-10-20] MEDS ORDERED: PANTOPRAZOLE 40 MG/10 ML VIAL IVP SCH (09:00)
[2017-10-20] MEDS: LACTULOSE 20 GM/30 ML CUP PO SCH (09:45)
[2017-10-20] MEDS: MELOXICAM 7.5 MG TAB PO SCH (09:45)
[2017-10-20] MEDS: metFORMIN 500 MG TAB PO SCH ×2 (09:45→16:30)
[2017-10-20] MEDS: GABAPENTIN 400 MG CAP PO SCH ×2 (09:45→16:30)
[2017-10-20 12:30] LABS: Glucose,Whole Blood 134 mg/dL (75-99)
--- NOTE | 2017-10-20 12:57 | P.PN ---
Progress Note - Text Progress Note Date: 10/20/17 Interval History: Patient is a 42-year-old female who was seen today. Patient states that she remained suicidal and when questioned about her becoming agitated last evening stated that she pulled out her IVs because she wanted to. When I asked her why she was attempting to leave the hospital when she stated that she wanted to be here she could not answer that question. Patient states that she will continue to take pills if she is discharged to try to kill herself. Patient would not elaborate further on why she was feeling suicidal, why she was pulling her IVs out last night or why she became irritable and agitated. Mental Status: Appearance/Attitude: Patient is dressed in a hospital gown, lying in the bed in no acute distress and is superficially cooperative Behavior: Patient does not exhibit any psychomotor agitation or retardation Speech/Language: Patient's responses to questions were very brief she spoke in a normal volume and rhythm and she was coherent Thought Process: Patient was goal-directed but non-elaborative Thought Content: Patient denied auditory or visual hallucinations and no delusions or paranoid ideation were elicited. Patient stated she pulled out her IV last night because she wanted to and states that she got upset because she wanted to but could not explain it further to me and refused to further discuss it. Patient reported that she continues to feel suicidal. Suicidal/Homicidal Ideation: Patient continues to state that she has suicidal thoughts and if she is released from the hospital will continue to try to take medications in an attempt to kill herself, she denies any current homicidal Sensorium/Cognition: Patient is alert and oriented to person, place, and time Mood/Affect: Patient's mood is sullen and her affect is restricted Insight/Judgment: patient's insight and judgment are poor Assessment: patient continues to verbalize that if she leaves the hospital she will continue to take medications in an overdose attempt to commit suicide. Patient became agitated last night on the floor and required Haldol 5 mg injectable, patient states she pulled out her IVs because she wanted to and states that she got agitated because she wanted to. Patient was not elaborative with her responses and even with encouragement could not explain further about her behavior. Patient's Depakote level is now in the nontoxic range. Plan: Patient requires inpatient psychiatric hospitalization, her prior psychiatric medications have not been restarted at this time and should be once the patient is admitted to an inpatient psychiatric unit.
[2017-10-20 13:37] VITALS: BP 118/83; PULSE 75; TEMP 98.1
[2017-10-20] MEDS ORDERED: ACETAMINOPHEN TAB 325 MG TAB PO PRN (14:01)
[2017-10-20 14:21] LABS: Creatine Kinase 30 U/L (30-135)
[2017-10-20 14:34] LABS: Creatine Kinase MB <0.2 ng/mL (0.0-2.4); Troponin I 0.023 ng/mL (0.000-0.034)
--- NOTE | 2017-10-20 15:56 | P.DS ---
Providers Date of admission: 10/19/17 11:31 Attending physician: Matt Max Consults: 10/18/17 23:19 Consult Physician Urgent Consulting Provider: Meghna Carreon Consult Reason/Comments: Overdose Do you want consulting provider notified?: Already Contacted Primary care physician: Miquel Marx [facility] Course: 42-year-old female came in with suicidal ideation overdose on Depakote and trazodone. Patient Depakote levels have come down liver enzymes are essentially within normal limits does have tremor from trazodone overdose which is expected to improve. Patient is a cleared from medical perspective after discharge the patient patient started comparing of chest pain as he doesn't she doesn't want to go to inpatient psychiatric floor in [facility] because of which obtained a EKG which is essentially within normal limits chest pain is only brief and atypical in nature. Patient tried to escape later in the day today. My suspicion is extremely low that patient has a acute myocardial infarction or acute myocardial event patient will be discharged today to inpatient psychiatric floor. PHYSICAL EXAMINATION: GENERAL: The patient is alert and oriented x3, not in any acute distress. Well developed, well nourished. Patient is tremulous depressed HEENT: Pupils are round and equally reacting to light. EOMI. No scleral icterus. No conjunctival pallor. Normocephalic, atraumatic. No pharyngeal erythema. No thyromegaly. CARDIOVASCULAR: S1 and S2 present. No murmurs, rubs, or gallops. PULMONARY: Chest is clear to auscultation, no wheezing or crackles. ABDOMEN: Soft, nontender, nondistended, normoactive bowel sounds. No palpable organomegaly. MUSCULOSKELETAL: No joint swelling or deformity. EXTREMITIES: No cyanosis, clubbing, or pedal edema. NEUROLOGICAL: Gross neurological examination did not reveal any focal deficits. SKIN: No rashes. Assessment and Plan Plan: -Suicide attempt: She is being discharged to inpatient psychiatric floor at [facility] -Depakote overdose: Liver function is essentially within normal limits now Depakote levels have come down -Trazodone overdose: Patient has mildly prolonged QTC, monitored overnight. Patient will be resumed back on SSRIs -Gastroesophageal reflux disease -Bipolar disorder management as per psychiatry Plan - Discharge Summary Discharge Rx Participant: No New Discharge Prescriptions: New Omeprazole [PriLOSEC] 40 mg PO [facility] #14 capsule.dr Continue Docusate [Colace] 100 mg PO HS metFORMIN HCL [Glucophage] 500 mg PO BID@0800,1700 Ergocalciferol [Vitamin D2 (DRISDOL)] 50,000 unit PO MO@0800 Meloxicam [Mobic] 7.5 mg PO BID@0800,2100 DULoxetine HCL [Cymbalta] 30 mg PO BID Lurasidone [Latuda] 80 mg PO DAILY #30 tab Gabapentin 800 mg PO TID rOPINIRole HCL [Requip] 1 mg PO HS Sertraline [Zoloft] 50 mg PO DAILY Atorvastatin [Lipitor] 10 mg PO HS #30 tab Budesonide [Pulmicort Flexhaler] 2 puff INHALATION RT-DAILY Albuterol Inhaler [Ventolin Hfa Inhaler] 2 puff INHALATION RT-Q6H PRN PRN Reason: Shortness Of Breath Discontinued Divalproex ER [Depakote ER] 1,000 mg PO HS@2100 #60 tab.er.24h Acetaminophen-Codeine 300-30mg [Tylenol w/codeine #3] 1 tab PO TID PRN PRN Reason: Pain Discharge Medication List Docusate [Colace] 100 mg PO HS 03/08/16 [History] Ergocalciferol [Vitamin D2 (DRISDOL)] 50,000 unit PO MO@0800 01/11/17 [History] Meloxicam [Mobic] 7.5 mg PO BID@0800,2100 01/11/17 [History] metFORMIN HCL [Glucophage] 500 mg PO BID@0800,1700 01/11/17 [History] DULoxetine HCL [Cymbalta] 30 mg PO BID 09/22/17 [History] Lurasidone [Latuda] 80 mg PO DAILY #30 tab 10/05/17 [Rx] Gabapentin 800 mg PO TID 10/14/17 [History] Sertraline [Zoloft] 50 mg PO DAILY 10/14/17 [History] rOPINIRole HCL [Requip] 1 mg PO HS 10/14/17 [History] Atorvastatin [Lipitor] 10 mg PO HS #30 tab 10/15/17 [Rx] Albuterol Inhaler [Ventolin Hfa Inhaler] 2 puff INHALATION RT-Q6H PRN 10/18/17 [ History] Budesonide [Pulmicort Flexhaler] 2 puff INHALATION RT-DAILY 10/18/17 [History] Omeprazole [PriLOSEC] 40 mg PO TERESA-TOYA #14 capsule. 10/20/17 [Rx] Follow up Appointment(s)/Referral(s): [facility] [Outside] - 1 Week Miquel Marx MD [Primary Care Provider] - 1 Week Patient Instructions/Handouts: Depression (DC) Activity/Diet/Wound Care/Special Instructions: Cardiac, diabetic diet. Activity as tolerated. Discharge Disposition: TRANSFER TO PSYCH HOSP/UNIT
[2017-10-21] MEDS ORDERED: PANTOPRAZOLE 40 MG TABLET PO SCH (07:30)
== END 2017-10-20 18:45 | DRG 918 ==
LOC: EC 20:19 → 4MS4W 23:19 → OBSVTOIN 10-19 11:31
PROVIDERS: ADMIT Internal Medicine; ATTEND Internal Medicine
DX: T42.6X2A Poisoning by other antiepileptic and sedative-hypnotic drugs, intentional self-harm, initial encounter (principal); E11.9 Type 2 diabetes mellitus without complications; F25.9 Schizoaffective disorder, unspecified; F31.9 Bipolar disorder, unspecified; F41.0 Panic disorder [episodic paroxysmal anxiety]; G25.81 Restless legs syndrome; G40.909 Epilepsy, unspecified, not intractable, without status epilepticus; I45.81 Long QT syndrome; J45.909 Unspecified asthma, uncomplicated; T43.212A Poisoning by selective serotonin and norepinephrine reuptake inhibitors, intentional self-harm, initial encounter; F79 Unspecified intellectual disabilities; M54.9 Dorsalgia, unspecified; K21.9 Gastro-esophageal reflux disease without esophagitis; Z79.899 Other long term (current) drug therapy; Z90.710 Acquired absence of both cervix and uterus; Z79.1 Long term (current) use of non-steroidal anti-inflammatories (NSAID); Z79.84 Long term (current) use of oral hypoglycemic drugs; Z79.891 Long term (current) use of opiate analgesic; Z88.6 Allergy status to analgesic agent; Z88.0 Allergy status to penicillin; Z88.2 Allergy status to sulfonamides; Z88.8 Allergy status to other drugs, medicaments and biological substances; Z90.49 Acquired absence of other specified parts of digestive tract; Z98.51 Tubal ligation status; Z87.891 Personal history of nicotine dependence; Z91.14 Patient's other noncompliance with medication regimen
CPT/HCPCS: 36415; 80053; 80164; 80306; 80320; 81001; 81025; 82075; 82140; 82550; 82553; 83520; 84484; 85025; 85027; 85610; 85730; 87086; 93005; 94640; 94760; 96374; 96376; 99284; 99285

== ENCOUNTER 2017-10-28 01:45 | Emergency (ER) | payer MEDICARE, OTHER ==
[2017-10-28 01:49] VITALS: PULSE 78
--- NOTE | 2017-10-28 03:12 | ED ---
General Adult HPI - General Chief complaint: Recheck/Abnormal Lab/Rx Stated complaint: Rectal Bleed Time Seen by Provider: 10/28/17 02:01 Source: EMS, RN notes reviewed Mode of arrival: EMS Limitations: no limitations - History of Present Illness Initial comments: This is a 42-year-old female who presents to the emergency department with chief complaint of hemorrhoids. Patient states that she has had painful rectal hemorrhoids for the past 2 days. She states that they bleed when she wipes with toilet paper. She states that she has been taking warm baths and applying preparation H. She states despite these treatments, the pain has not decreased. Denies fevers or chills, abdominal pain, nausea or vomiting, diarrhea or constipation. - Related Data Home Medications Medication Instructions Recorded Confirmed Docusate [Colace] 100 mg PO HS 03/08/16 10/18/17 Ergocalciferol [Vitamin D2 50,000 unit PO MO@0800 01/11/17 10/18/17 (DRISDOL)] Meloxicam [Mobic] 7.5 mg PO BID@0800,2100 01/11/17 10/18/17 metFORMIN HCL [Glucophage] 500 mg PO BID@0800,1700 01/11/17 10/18/17 DULoxetine HCL [Cymbalta] 30 mg PO BID 09/22/17 10/18/17 Gabapentin 800 mg PO TID 10/14/17 10/18/17 Sertraline [Zoloft] 50 mg PO DAILY 10/14/17 10/18/17 rOPINIRole HCL [Requip] 1 mg PO HS 10/14/17 10/18/17 Albuterol Inhaler [Ventolin Hfa 2 puff INHALATION RT-Q6H PRN 10/18/17 10/18/17 Inhaler] Budesonide [Pulmicort Flexhaler] 2 puff INHALATION RT-DAILY 10/18/17 10/18/17 Previous Rx's Medication Instructions Recorded Lurasidone [Latuda] 80 mg PO DAILY #30 tab 10/05/17 Atorvastatin [Lipitor] 10 mg PO HS #30 tab 10/15/17 Omeprazole [PriLOSEC] 40 mg PO AC-BRKFST #14 capsule. 10/20/17 Allergies Allergy/AdvReac Type Severity Reaction Status Date / Time Penicillins Allergy Rash/Hives Verified 10/28/17 01:50 quetiapine [From Seroquel] Allergy Rash/Hives Verified 10/28/17 01:50 sulfamethoxazole Allergy Rash/Hives Verified 10/28/17 01:50 [From Bactrim] trimethoprim [From Bactrim] Allergy Rash/Hives Verified 10/28/17 01:50 ibuprofen [From Motrin] AdvReac Nausea Verified 10/28/17 01:50 lithium [[place]] AdvReac Nausea Verified 10/28/17 01:50 zolpidem [From Ambien] AdvReac nightmares Verified 10/28/17 01:50 Review of Systems ROS Statement: Those systems with pertinent positive or pertinent negative responses have been documented in the HPI. ROS Other: All systems not noted in ROS Statement are negative. Past Medical History Past Medical History: Asthma, Diabetes Mellitus, GERD/Reflux, Musculoskeletal Disorder, Seizure Disorder Additional Past Medical History / Comment(s): Back Pain; CTS FLORESITA. , History of Any Multi-Drug Resistant Organisms: None Reported Past Surgical History: Cholecystectomy, Hysterectomy, Tubal Ligation Additional Past Surgical History / Comment(s): FLORESITA Feet 1990, history of severe benzo addiction Past Anesthesia/Blood Transfusion Reactions: Motion Sickness Past Psychological History: Anxiety, Bipolar, Depression, Panic Disorder, Schizoaffective Disorder, Schizophrenia Smoking Status: Never smoker Past Alcohol Use History: None Reported Past Drug Use History: None Reported - Past Family History Mother Family Medical History: No Reported History General Exam - General Exam Comments Initial Comments: General: Awake and alert, well-developed; in no apparent distress. HEENT: Head atraumatic, normocephalic. Pupils are equal, round and reactive to light. Extraocular movements intact. Oropharynx moist without erythema or exudate. Neck: Supple. Normal ROM. Cardiovascular: Regular rate and rhythm. No murmurs, rubs or gallops. Chest symmetrical. Respiratory: Lungs clear to auscultation bilaterally. No wheezes, rales or rhonchi. Normal respiratory effort with no use of accessory muscles. Musculoskeletal: Normal ROM, no tenderness bilateral upper and lower extremities. Ambulating normally. Skin: [place], warm and dry without rashes. Neurological: Alert and oriented x3. CN II-XII grossly intact. Speech is fluent and answers are appropriate. Psychiatric: Normal mood and affect. No overt signs of depression or anxiety noted. Limitations: no limitations Rectal exam: Present: hemorrhoids (external. soft and normal in color. no firmess or evidence of thrombosis. no bleeding. ) Course Vital Signs 10/28/17 01:47 Temperature 97.7 F Pulse Rate 78 Respiratory 18 Rate Blood Pressure 158/103 O2 Sat by Pulse 96 Oximetry Medical Decision Making - Medical Decision Making This is a 42-year-old female who presents to the emergency department with chief complaint of hemorrhoids. Patient states that she's had painful, bleeding hemorrhage in the past 2 days. On physical examination, there are multiple external hemorrhoids noted. They are tender on palpation, however are soft. No firmness noted. No evidence of thrombosed hemorrhoid. No bleeding. Recommended sitz baths, topical hemorrhoid cream, tylenol or ibuprofen as needed for pain. Patient's vital signs are stable and she is in no acute distress. She'll be discharged home at this time. She is in agreement with plan and voices understanding. All questions answered. Disposition Clinical Impression: External hemorrhoid Disposition: HOME SELF-CARE Condition: Good Instructions: Hemorrhoids (ED) Additional Instructions: Please follow up with primary care provider within 1-2 days. Return to emergency department if symptoms should worsen or any concerns arise. Is patient prescribed a controlled substance at d/c from ED?: No Referrals: Mikaela Estrada MD [Primary Care Provider] - 1-2 days Time of Disposition: 03:12
[2017-10-28 03:27] VITALS: BP 125/56; RESP 16; TEMP 97.9
== END 2017-10-28 03:27 | disposition home or self-care (01) ==
LOC: EC 01:45
DX: K64.4 Residual hemorrhoidal skin tags (principal); J45.909 Unspecified asthma, uncomplicated; E11.9 Type 2 diabetes mellitus without complications; G40.909 Epilepsy, unspecified, not intractable, without status epilepticus; F31.9 Bipolar disorder, unspecified; F41.0 Panic disorder [episodic paroxysmal anxiety]; Z79.1 Long term (current) use of non-steroidal anti-inflammatories (NSAID); Z79.51 Long term (current) use of inhaled steroids; Z79.84 Long term (current) use of oral hypoglycemic drugs; Z79.899 Other long term (current) drug therapy; Z88.0 Allergy status to penicillin; Z88.1 Allergy status to other antibiotic agents; Z88.6 Allergy status to analgesic agent; Z88.8 Allergy status to other drugs, medicaments and biological substances; Z87.39 Personal history of other diseases of the musculoskeletal system and connective tissue
CPT/HCPCS: 99283